=== PATIENT | male | born 1950 | race Hispanic/Latino ===

== ENCOUNTER → 2017-09-10 | Outpatient (CLI) | payer MEDICARE | END | disposition home or self-care (01) | LOC: RAH 09:06 | PROVIDERS: ATTEND Internal Medicine Gastroenterology | DX: K76.0 Fatty (change of) liver, not elsewhere classified (principal); K82.4 Cholesterolosis of gallbladder | CPT/HCPCS: 76700 ==

== ENCOUNTER 2017-10-14 00:31 | Emergency (ER) | payer MEDICARE ==
[2017-10-14] MEDS ORDERED: SODIUM CHLORIDE 0.9% 1000ML 1,000 ML IV ONE (01:12)
[2017-10-14] MEDS ORDERED: HYDRALAZINE HCL 20 MG/ML VIAL ONE (01:12)
[2017-10-14] MEDS ORDERED: ONDANSETRON HCL 4 MG/2 ML VIAL ONE (01:12)
[2017-10-14 01:22] LABS: CREATININE 1.1 mg/dL (0.5-1.5)
[2017-10-14 01:25] LABS: BASOPHILS % (AUTO) 0.5 % (0.0-5.0); EOSINOPHILS % (AUTO) 3.4 % (0.0-8.0); HEMATOCRIT 33.4 % (42-54); LYMPHOCYTES % (AUTO) 31.5 % (21.0-51.0); MEAN CORPUSCULAR HGB CONC 35.6 g/dL (32.0-36.0); MONOCYTES % (AUTO) 12.6 % (3.0-13.0); PLATELET COUNT (AUTO) 238 K/uL (130-400); RED BLOOD CELL COUNT(AUTO) 3.71 MIL/uL (4.50-6.20); RED CELL DISTRIBUTION WIDTH 13.5 % (11.0-15.5); WHITE BLOOD COUNT (AUTO) 8.9 K/uL (4.8-10.8)
[2017-10-14 01:27] LABS: ALBUMIN 3.6 g/dL (3.5-5.0); BILIRUBIN,TOTAL 0.5 mg/dL (0.2-1.0); TOTAL PROTEIN, SERUM 8.3 g/dL (6.0-8.3)
[2017-10-14 01:59] LABS: APPEARANCE,URINE Clear (CLEAR); BILIRUBIN,URINE Negative (NEGATIVE); COLOR,URINE Yellow (YELLOW); GLUCOSE, URINE (UA) Negative (NEGATIVE); KETONES,URINE Negative (NEGATIVE); LEUKOCYTE ESTERASE ,URINE Negative (NEGATIVE); NITRATE,URINE Negative (NEGATIVE); OCCULT BLOOD,URINE Trace (NEGATIVE); PH,URINE 5.5 (5.0-8.0); PROTEIN,URINE POS 2+ (NEGATIVE); UROBILINOGEN,URINE 0.2 mg/dL (0.2-1.0)
[2017-10-14 02:10] LABS: BACTERIA,URINE None Seen /HPF (None Seen); MUCUS,URINE Few LPF (None Seen); RBC,URINE None Seen /HPF (0-1); SQUAMOUS EPITHELIAL CELL,UR Few /HPF (0-2); WBC,URINE None Seen /HPF (0-1)
[2017-10-14 03:13] LABS: CREATININE 1.1 mg/dL (0.5-1.5); POTASSIUM 3.8 mmol/L (3.5-5.1)
[2017-10-14] MEDS ORDERED: ACETAMINOPHEN 325 MG TAB ONE (03:44)
== END 2017-10-14 04:06 | disposition home or self-care (01) ==
LOC: EDH 00:31
DX: E87.1 Hypo-osmolality and hyponatremia (principal); G47.00 Insomnia, unspecified; R20.2 Paresthesia of skin; I10 Essential (primary) hypertension; Z88.8 Allergy status to other drugs, medicaments and biological substances; Z86.19 Personal history of other infectious and parasitic diseases; Z87.01 Personal history of pneumonia (recurrent)
CPT/HCPCS: 36415; 80048; 80053; 81001; 82550; 84484; 85025; 93005; 96374; 96375; 99285; J0360; J2405; J7030

== ENCOUNTER 2019-07-19 22:32 | Emergency (ER) | payer MEDICARE ==
[2019-07-19 23:35] LABS: BASOPHILS % (AUTO) 0.2 % (0.0-5.0); EOSINOPHILS % (AUTO) 0.8 % (0.0-8.0); HEMATOCRIT 35.6 % (42-54); LYMPHOCYTES % (AUTO) 7.1 % (21.0-51.0); MEAN CORPUSCULAR HEMOGLOBIN 31.3 pg (27.0-33.0); MONOCYTES % (AUTO) 7.6 % (3.0-13.0); NEUTROPHILS % (AUTO) 82.8 % (40.0-77.0); PLATELET COUNT (AUTO) 232 K/uL (130-400); RED BLOOD CELL COUNT(AUTO) 3.87 MIL/uL (4.50-6.20); WHITE BLOOD COUNT (AUTO) 15.5 K/uL (4.8-10.8)
[2019-07-19 23:46] LABS: CREATININE 1.8 mg/dL (0.5-1.5); POTASSIUM 3.1 mmol/L (3.5-5.1)
[2019-07-19 23:51] LABS: ALBUMIN 3.9 g/dL (3.5-5.0); BILIRUBIN,TOTAL 0.4 mg/dL (0.2-1.0); TOTAL PROTEIN, SERUM 8.9 g/dL (6.0-8.3)
[2019-07-20] MEDS ORDERED: POTASSIUM CHLORIDE 20 MEQ ERTAB PO ONE (00:01)
[2019-07-20] MEDS ORDERED: METHYLPREDNISOLONE SOD SUCC 40MG/ML 1ML ONE (00:01)
[2019-07-20] MEDS ORDERED: CEFTRIAXONE SODIUM 1 GM ONE (00:02)
[2019-07-20] MEDS ORDERED: BENZONATATE 100 MG CAPSULE PO ONE (00:02)
[2019-07-20] MEDS ORDERED: AZITHROMYCIN 250 MG TABLET PO ONE (00:02)
[2019-07-20] MEDS ORDERED: SODIUM CHLORIDE 0.9% 500ML 500 ML IV ONE (00:03)
[2019-07-20] MEDS ORDERED: LORAZEPAM 1 MG TABLET ONE (00:03)
[2019-07-20 00:06] LABS: B-TYPE NATRIURETIC PEPTIDE 39 pg/mL (0-100)
[2019-07-20] MEDS ORDERED: NITROGLYCERIN 1GM/1 INCH PACKET TD ONE (02:04)
[2019-07-20] MEDS ORDERED: ACETAMINOPHEN 325 MG TAB ONE (02:32)
== END 2019-07-20 05:06 | disposition home or self-care (01) ==
LOC: EDH 22:32
DX: J44.0 Chronic obstructive pulmonary disease with (acute) lower respiratory infection (principal); R09.1 Pleurisy; I10 Essential (primary) hypertension; Z87.01 Personal history of pneumonia (recurrent); Z88.8 Allergy status to other drugs, medicaments and biological substances; Z86.19 Personal history of other infectious and parasitic diseases
CPT/HCPCS: 36415 ×2; 71045; 74176; 80053; 82550; 83605 ×2; 83735; 83880; 84145; 84484 ×2; 85025; 93005 ×2; 96374; 96375; 99285; J0696; J2920; J7040

== ENCOUNTER 2019-07-24 20:25 | Emergency (ER) | payer MEDICARE ==
[2019-07-24 20:53] LABS: BASOPHILS % (AUTO) 0.2 % (0.0-5.0); EOSINOPHILS % (AUTO) 3.6 % (0.0-8.0); HEMATOCRIT 37.1 % (42-54); LYMPHOCYTES % (AUTO) 40.6 % (21.0-51.0); MEAN CORPUSCULAR HGB CONC 33.7 g/dL (32.0-36.0); MEAN CORPUSCULAR VOLUME 92.1 fL (79-99); MONOCYTES % (AUTO) 9.3 % (3.0-13.0); NEUTROPHILS % (AUTO) 45.8 % (40.0-77.0); PLATELET COUNT (AUTO) 243 K/uL (130-400); RED BLOOD CELL COUNT(AUTO) 4.03 MIL/uL (4.50-6.20); RED CELL DISTRIBUTION WIDTH 12.7 % (11.0-15.5); WHITE BLOOD COUNT (AUTO) 8.3 K/uL (4.8-10.8)
[2019-07-24 21:09] LABS: CREATININE 1.7 mg/dL (0.5-1.5); POTASSIUM 3.7 mmol/L (3.5-5.1)
[2019-07-24] MEDS ORDERED: KETOROLAC TROMETHAMINE 30MG/ML ONE (21:09)
[2019-07-24] MEDS ORDERED: ONDANSETRON HCL 4 MG/2 ML VIAL ONE (21:09)
[2019-07-24 21:15] LABS: ALBUMIN 3.4 g/dL (3.5-5.0); BILIRUBIN,DIRECT 0.1 mg/dL (0.0-0.3); BILIRUBIN,TOTAL 0.3 mg/dL (0.2-1.0); TOTAL PROTEIN, SERUM 7.8 g/dL (6.0-8.3)
[2019-07-24] MEDS ORDERED: LORAZEPAM 0.5 MG TABLET ONE (23:00)
== END 2019-07-24 23:57 | disposition home or self-care (01) ==
LOC: EDH 20:25
DX: R10.9 Unspecified abdominal pain (principal); Z76.0 Encounter for issue of repeat prescription; I10 Essential (primary) hypertension; Z88.8 Allergy status to other drugs, medicaments and biological substances
CPT/HCPCS: 36415; 74176; 80048; 80076; 82550; 83690; 84484; 85025; 93005; 96374; 96375; 99285; J1885; J2405

== ENCOUNTER 2019-07-27 09:33 | Emergency (ER) | payer MEDICARE | END 2019-07-27 09:55 | disposition left against medical advice (07) | LOC: EDH 09:33 | DX: J18.9 Pneumonia, unspecified organism (principal); I10 Essential (primary) hypertension; Z88.8 Allergy status to other drugs, medicaments and biological substances; Z72.0 Tobacco use; Z53.21 Procedure and treatment not carried out due to patient leaving prior to being seen by health care provider ==

== ENCOUNTER 2020-07-18 11:36 | Observation (INO) | payer MEDICARE ==
[~2020-07-18] VITALS: Ht 170.2 cm; Wt 71.1 kg
[2020-07-18] MEDS ORDERED: LIDOCAINE HCL-MPF 1% 2ML VIAL IV PRN ×2 (13:00)
[2020-07-18] MEDS ORDERED: GLUCAGON 1MG KIT 1 MG ML IM PRN (13:00)
[2020-07-18] MEDS ORDERED: POTASSIUM CHLORIDE 10% ELIXIR 20 MEQ/15 ML UDCUP PO PRN (13:00)
[2020-07-18] MEDS ORDERED: MAGNESIUM 2GM PREMIX 50ML 50 ML IV PRN (13:00)
[2020-07-18] MEDS ORDERED: LORAZEPAM 2 MG/ML 1 ML VIAL IVP PRN (13:00)
[2020-07-18] MEDS: PANTOPRAZOLE 40 MG/VIAL IVP SCH (13:00)
[2020-07-18] MEDS ORDERED: DEXTROSE 50%-WATER 50 ML DISP.SYRIN IV PRN (13:00)
[2020-07-18] MEDS ORDERED: POTASSIUM CHLORIDE 20MEQ/100ML 100 ML IV PRN ×2 (13:00)
[2020-07-18] MEDS ORDERED: POTASSIUM CHLORIDE 20 MEQ ERTAB PO PRN (13:00)
[2020-07-18] MEDS: SODIUM CHLORIDE 0.9% 1000ML 1,000 ML IV SCH ×2 (13:00→23:00)
[2020-07-18] MEDS ORDERED: ONDANSETRON HCL 4 MG/2 ML VIAL IVP PRN (13:00)
[2020-07-18 13:12] LABS: APPEARANCE,URINE Clear (CLEAR); BILIRUBIN,URINE Negative (NEGATIVE); COLOR,URINE Yellow (YELLOW); GLUCOSE, URINE (UA) Negative (NEGATIVE); KETONES,URINE Negative (NEGATIVE); LEUKOCYTE ESTERASE ,URINE Negative (NEGATIVE); NITRATE,URINE Negative (NEGATIVE); OCCULT BLOOD,URINE Negative (NEGATIVE); PROTEIN,URINE Negative (NEGATIVE); UROBILINOGEN,URINE 0.2 mg/dL (0.2-1.0)
[2020-07-18] MEDS ORDERED: LABETALOL 20 MG/4 ML DISP.SYRIN IV PRN (13:15)
[2020-07-18 13:22] LABS: AMPHET/METH SCREEN,URINE NEGATIVE (NEGATIVE); BARBITURATE SCREEN, URINE NEGATIVE (NEGATIVE); BENZODIAZEPINES SCREEN,URINE NEGATIVE (NEGATIVE); CANNABINOID SCREEN,URINE NEGATIVE (NEGATIVE); COCAINE SCREEN,URINE NEGATIVE (NEGATIVE); OPIATE SCREEN,URINE NEGATIVE (NEGATIVE); PHENCYCLIDINE SCREEN,URINE NEGATIVE (NEGATIVE)
[2020-07-18 13:31] LABS: HEMATOCRIT 34.3 % (42-54); MEAN CORPUSCULAR HEMOGLOBIN 31.7 pg (27.0-33.0); MEAN CORPUSCULAR VOLUME 90.5 fL (79-99); RED BLOOD CELL COUNT(AUTO) 3.79 MIL/uL (4.50-6.20); RED CELL DISTRIBUTION WIDTH 12.5 % (11.0-15.5); WHITE BLOOD COUNT (AUTO) 6.7 K/uL (4.8-10.8)
[2020-07-18 13:44] LABS: CREATININE 1.7 mg/dL (0.5-1.5); POTASSIUM 4.4 mmol/L (3.5-5.1)
[2020-07-18] MEDS ORDERED: PANTOPRAZOLE 40 MG/VIAL ONE (14:04)
[2020-07-18] MEDS ORDERED: SODIUM CHLORIDE 0.9% 1000ML 1,000 ML IV ONE (14:06)
[2020-07-18] MEDS ORDERED: LORAZEPAM 2 MG/ML 1 ML VIAL ONE ×2 (15:20→23:12)
[2020-07-18] MEDS ORDERED: ONDANSETRON HCL 4 MG/2 ML VIAL ONE (22:43)
[2020-07-18 23:50] VITALS: BP 172/87
[2020-07-19] MEDS ORDERED: LORA2TAB80 PO (00:29)
[2020-07-19] MEDS ORDERED: AMLO-258 PO (00:29)
[2020-07-19] MEDS ORDERED: CLON1PAT13 TD (00:29)
[2020-07-19] MEDS ORDERED: LISI40TA9 PO (00:29)
[2020-07-19] MEDS ORDERED: FOLI1TAB85 PO (00:29)
[2020-07-19] MEDS ORDERED: ZOLP10TA2 PO (00:29)
[2020-07-19] MEDS ORDERED: ZOLPIDEM TARTRATE 5 MG TAB PO PRN (00:45)
[2020-07-19] MEDS ORDERED: LORAZEPAM 2 MG TABLET PO PRN (00:45)
[2020-07-19] MEDS ORDERED: ZOLPIDEM TARTRATE 5 MG TAB ONE (00:53)
[2020-07-19] MEDS: LORAZEPAM 1 MG TABLET ONE ×2 (00:56→00:58)
[2020-07-19 04:00] VITALS: BP 125/66
[2020-07-19 04:59] LABS: CREATININE 1.7 mg/dL (0.5-1.5); POTASSIUM 4.6 mmol/L (3.5-5.1)
[2020-07-19 07:00] VITALS: BP 154/73
[2020-07-19] MEDS ORDERED: LISINOPRIL 40 MG TABLET PO SCH (09:00)
[2020-07-19] MEDS ORDERED: AMLODIPINE-BENAZEPRIL 5-10 MG PO SCH (09:00)
[2020-07-19] MEDS ORDERED: CLONIDINE 0.3 MG/ 24 HR PATCH TD SCH (09:00)
[2020-07-19] MEDS: PANTOPRAZOLE 40 MG/VIAL IVP SCH (09:58)
== END 2020-07-19 10:49 | disposition home or self-care (01) ==
LOC: EDH 11:36 → EDHIP 12:54 → 3DH 22:53
PROVIDERS: ADMIT Internal Medicine; ATTEND Internal Medicine
DX: R53.1 Weakness (principal); Z20.822 Contact with and (suspected) exposure to COVID-19; R11.2 Nausea with vomiting, unspecified; F41.9 Anxiety disorder, unspecified; I10 Essential (primary) hypertension; G89.29 Other chronic pain; M54.9 Dorsalgia, unspecified; G47.00 Insomnia, unspecified; J44.9 Chronic obstructive pulmonary disease, unspecified; F13.20 Sedative, hypnotic or anxiolytic dependence, uncomplicated; Z87.891 Personal history of nicotine dependence; Z79.899 Other long term (current) drug therapy; Z88.8 Allergy status to other drugs, medicaments and biological substances
CPT/HCPCS: 36415 ×2; 71045; 80048 ×2; 80305; 81003; 83735; 84145; 85027; 86677; 87040 ×2; 87426; 96374; 99284; C9113 ×2; G0378 ×22; J2060 ×2; J2405; J7030; U0003

== ENCOUNTER 2020-10-12 09:08 | Observation (INO) | payer MEDICARE ==
[~2020-10-12] VITALS: Ht 170.2 cm; Wt 68.0 kg
[~2020-10-12 09:08] MED LIST: AMLO-258 PO; CLON1PAT13 TD; FOLI1TAB85 PO; LISI40TA9 PO; LORA2TAB80 PO; ZOLP10TA2 PO
[2020-10-12] MEDS ORDERED: ONDANSETRON 4MG INJ IVP ONE ×2 (09:30)
[2020-10-12] MEDS ORDERED: FAMOTIDINE 20MG VIAL IV ONE ×2 (09:30→10:42)
[2020-10-12 09:35] VITALS: BP 150/76
[2020-10-12 09:45] LABS: BASOPHILS % (AUTO) 0.3 % (0.0-5.0); EOSINOPHILS % (AUTO) 1.1 % (0.0-8.0); HEMATOCRIT 36.2 % (42-54); LYMPHOCYTES % (AUTO) 11.9 % (21.0-51.0); MEAN CORPUSCULAR HEMOGLOBIN 31.1 pg (27.0-33.0); MEAN CORPUSCULAR VOLUME 91.4 fL (79-99); MONOCYTES % (AUTO) 6.6 % (3.0-13.0); NEUTROPHILS % (AUTO) 79.7 % (40.0-77.0); PLATELET COUNT (AUTO) 196 K/uL (130-400); RED BLOOD CELL COUNT(AUTO) 3.96 MIL/uL (4.50-6.20); RED CELL DISTRIBUTION WIDTH 13.5 % (11.0-15.5); WHITE BLOOD COUNT (AUTO) 14.6 K/uL (4.8-10.8)
[2020-10-12 09:52] LABS: CREATININE 2.1 mg/dL (0.5-1.5); POTASSIUM 4.3 mmol/L (3.5-5.1)
[2020-10-12 10:11] LABS: B-TYPE NATRIURETIC PEPTIDE 29 pg/mL (0-100)
[2020-10-12 10:12] LABS: ALBUMIN 3.4 g/dL (3.5-5.0); BILIRUBIN,TOTAL 0.4 mg/dL (0.2-1.0); TROPONIN I 0.1 ng/mL (0.00-0.06)
[2020-10-12] MEDS ORDERED: ONDANSETRON 4MG INJ ONE (10:42)
[2020-10-12] MEDS ORDERED: LORAZEPAM 2 MG/ML 1 ML VIAL IVP ONE (12:00)
[2020-10-12] MEDS ORDERED: LORAZEPAM 2 MG/ML 1 ML VIAL ONE (12:07)
[2020-10-12] MEDS ORDERED: NITROGLYCERIN 0.4 MG SL TAB SL PRN (12:30)
[2020-10-12] MEDS ORDERED: ONDANSETRON 4MG INJ IV PRN (12:30)
[2020-10-12] MEDS ORDERED: HYDRALAZINE 20MG/ML VIAL IV PRN (12:30)
[2020-10-12] MEDS ORDERED: ACETAMINOPHEN 325 MG TAB PO PRN (12:30)
[2020-10-12 13:06] LABS: BASOPHILS % (AUTO) 0.3 % (0.0-5.0); EOSINOPHILS % (AUTO) 0.6 % (0.0-8.0); HEMATOCRIT 36.3 % (42-54); LYMPHOCYTES % (AUTO) 14.5 % (21.0-51.0); MEAN CORPUSCULAR HEMOGLOBIN 30.5 pg (27.0-33.0); MEAN CORPUSCULAR HGB CONC 33.6 g/dL (32.0-36.0); MEAN CORPUSCULAR VOLUME 90.8 fL (79-99); MONOCYTES % (AUTO) 7.4 % (3.0-13.0); NEUTROPHILS % (AUTO) 76.6 % (40.0-77.0); PLATELET COUNT (AUTO) 190 K/uL (130-400); RED CELL DISTRIBUTION WIDTH 13.3 % (11.0-15.5); WHITE BLOOD COUNT (AUTO) 12.5 K/uL (4.8-10.8)
[2020-10-12] MEDS ORDERED: PANTOPRAZOLE 40 MG/VIAL ONE (13:11)
[2020-10-12] MEDS ORDERED: 0.9%NACL 100ML 200 ML ONE (13:12)
[2020-10-12] MEDS: 0.9%NACL 1000ML 1,000 ML IV SCH (13:24)
[2020-10-12] MEDS: CEFTRIAXONE 1G VIAL IV SCH (13:24)
[2020-10-12] MEDS ORDERED: OCTREOTIDE ACETATE 1,250 MCG in 0.9% NACL 250ML 250 ML IV SCH (18:15)
[2020-10-12 18:50] VITALS: BP 141/75
[2020-10-12] MEDS ORDERED: VENL-191 PO (20:19)
[2020-10-12 20:39] LABS: BASOPHILS % (AUTO) 0.2 % (0.0-5.0); EOSINOPHILS % (AUTO) 1.1 % (0.0-8.0); HEMATOCRIT 32.2 % (42-54); LYMPHOCYTES % (AUTO) 22.1 % (21.0-51.0); MEAN CORPUSCULAR HEMOGLOBIN 30.6 pg (27.0-33.0); MEAN CORPUSCULAR HGB CONC 33.2 g/dL (32.0-36.0); MONOCYTES % (AUTO) 10.2 % (3.0-13.0); PLATELET COUNT (AUTO) 165 K/uL (130-400); RED CELL DISTRIBUTION WIDTH 13.4 % (11.0-15.5); WHITE BLOOD COUNT (AUTO) 12.2 K/uL (4.8-10.8)
[2020-10-12 20:48] VITALS: BP 148/71
[2020-10-12] MEDS: PANTOPRAZOLE 40 MG/VIAL IVP SCH (21:24)
[2020-10-12] MEDS: LORAZEPAM 2 MG/ML 1 ML VIAL IVP PRN (21:25)
[2020-10-13] VITALS (8 sets, daily range): BP systolic 127–163; BP diastolic 52–90
[2020-10-13] MEDS: 0.9%NACL 1000ML 1,000 ML IV SCH ×3 (01:42→20:39)
[2020-10-13] MEDS: LORAZEPAM 2 MG/ML 1 ML VIAL IVP PRN ×4 (03:12→22:43)
[2020-10-13 03:37] LABS: BASOPHILS % (AUTO) 0.3 % (0.0-5.0); EOSINOPHILS % (AUTO) 2.2 % (0.0-8.0); HEMATOCRIT 30.9 % (42-54); LYMPHOCYTES % (AUTO) 22.2 % (21.0-51.0); MEAN CORPUSCULAR HEMOGLOBIN 30.5 pg (27.0-33.0); MEAN CORPUSCULAR HGB CONC 33.3 g/dL (32.0-36.0); MEAN CORPUSCULAR VOLUME 91.4 fL (79-99); MONOCYTES % (AUTO) 8.3 % (3.0-13.0); NEUTROPHILS % (AUTO) 66.5 % (40.0-77.0); PLATELET COUNT (AUTO) 140 K/uL (130-400); RED BLOOD CELL COUNT(AUTO) 3.38 MIL/uL (4.50-6.20); RED CELL DISTRIBUTION WIDTH 13.5 % (11.0-15.5); WHITE BLOOD COUNT (AUTO) 9.8 K/uL (4.8-10.8)
[2020-10-13 03:46] LABS: CREATININE 1.7 mg/dL (0.5-1.5)
[2020-10-13] MEDS ORDERED: POTASSIUM CHLORIDE 20MEQ/100ML 100 ML IV PRN (08:00)
[2020-10-13] MEDS ORDERED: KCL 20 MEQ ERTAB PO PRN (08:00)
[2020-10-13] MEDS ORDERED: POTASSIUM CHLORIDE 10% ELIXIR 20 MEQ/15 ML UDCUP PO PRN (08:00)
[2020-10-13] MEDS ORDERED: LIDOCAINE HCL-MPF 1% 2ML VIAL IJ PRN (08:00)
[2020-10-13] MEDS: PANTOPRAZOLE 40 MG/VIAL IVP SCH ×2 (08:19→20:39)
[2020-10-13] MEDS ORDERED: PANTOPRAZOLE 40MG INJ 80 MG in 0.9%NACL 100ML 100 ML IV SCH (09:00)
[2020-10-13] MEDS: THIAMINE HCL 100 MG/ML 2ML VIAL IV SCH (09:51)
[2020-10-13 10:00] LABS: BASOPHILS % (AUTO) 0.2 % (0.0-5.0); HEMATOCRIT 37.2 % (42-54); LYMPHOCYTES % (AUTO) 27.5 % (21.0-51.0); MEAN CORPUSCULAR HEMOGLOBIN 30.4 pg (27.0-33.0); MEAN CORPUSCULAR HGB CONC 33.1 g/dL (32.0-36.0); MEAN CORPUSCULAR VOLUME 92.1 fL (79-99); NEUTROPHILS % (AUTO) 61.1 % (40.0-77.0); PLATELET COUNT (AUTO) 171 K/uL (130-400); RED BLOOD CELL COUNT(AUTO) 4.04 MIL/uL (4.50-6.20); RED CELL DISTRIBUTION WIDTH 13.2 % (11.0-15.5); WHITE BLOOD COUNT (AUTO) 8.7 K/uL (4.8-10.8)
[2020-10-13 10:26] LABS: INR 1.01 (0.85-1.15)
[2020-10-13 10:28] LABS: PARTIAL THROMBOPLASTIN TIME 27.5 SEC (26.3-35.5)
[2020-10-13] MEDS: CEFTRIAXONE 1G VIAL IV SCH (15:15)
[2020-10-13] MEDS ORDERED: VENL75TA89 PO (16:46)
[2020-10-13] MEDS ORDERED: AMLO-258 PO (16:46)
[2020-10-13] MEDS ORDERED: VITA100C26 PO (16:46)
[2020-10-13] MEDS ORDERED: ZINC220T4 PO (16:46)
[2020-10-13] MEDS ORDERED: ASCO500W7 PO (16:46)
[2020-10-13] MEDS ORDERED: LISI40TA9 PO (16:46)
[2020-10-13 20:45] LABS: BASOPHILS % (AUTO) 0.4 % (0.0-5.0); EOSINOPHILS % (AUTO) 5.2 % (0.0-8.0); HEMATOCRIT 29.8 % (42-54); LYMPHOCYTES % (AUTO) 24.5 % (21.0-51.0); MEAN CORPUSCULAR HEMOGLOBIN 30.7 pg (27.0-33.0); MEAN CORPUSCULAR HGB CONC 33.2 g/dL (32.0-36.0); MEAN CORPUSCULAR VOLUME 92.5 fL (79-99); MONOCYTES % (AUTO) 11.2 % (3.0-13.0); NEUTROPHILS % (AUTO) 58.3 % (40.0-77.0); PLATELET COUNT (AUTO) 136 K/uL (130-400); RED BLOOD CELL COUNT(AUTO) 3.22 MIL/uL (4.50-6.20); RED CELL DISTRIBUTION WIDTH 13.2 % (11.0-15.5); WHITE BLOOD COUNT (AUTO) 7.7 K/uL (4.8-10.8)
[2020-10-14] MEDS ORDERED: DiphenhydrAMINE HCL 25 MG/10 ML ELIXIR UDCUP PO SCH (01:30)
[2020-10-14] MEDS ORDERED: ZOLP5TAB8 PO (02:04)
[2020-10-14] MEDS ORDERED: LORA2TAB80 PO (02:04)
[2020-10-14] MEDS: LORAZEPAM 2 MG/ML 1 ML VIAL IVP PRN ×3 (02:20→12:00)
[2020-10-14 03:57] VITALS: BP 167/83
[2020-10-14 05:31] LABS: BASOPHILS % (AUTO) 0.4 % (0.0-5.0); EOSINOPHILS % (AUTO) 6.2 % (0.0-8.0); HEMATOCRIT 30.7 % (42-54); LYMPHOCYTES % (AUTO) 25.9 % (21.0-51.0); MEAN CORPUSCULAR HEMOGLOBIN 30.7 pg (27.0-33.0); MEAN CORPUSCULAR HGB CONC 33.2 g/dL (32.0-36.0); MEAN CORPUSCULAR VOLUME 92.5 fL (79-99); MONOCYTES % (AUTO) 9.5 % (3.0-13.0); NEUTROPHILS % (AUTO) 57.6 % (40.0-77.0); PLATELET COUNT (AUTO) 151 K/uL (130-400); RED BLOOD CELL COUNT(AUTO) 3.32 MIL/uL (4.50-6.20); RED CELL DISTRIBUTION WIDTH 13.2 % (11.0-15.5); WHITE BLOOD COUNT (AUTO) 7.3 K/uL (4.8-10.8)
[2020-10-14 05:45] LABS: INR 1.01 (0.85-1.15)
[2020-10-14 05:46] LABS: PARTIAL THROMBOPLASTIN TIME 23.7 SEC (26.3-35.5)
[2020-10-14 05:50] LABS: ALBUMIN 3.1 g/dL (3.5-5.0); BILIRUBIN,TOTAL 0.2 mg/dL (0.2-1.0); CREATININE 1.4 mg/dL (0.5-1.5); MAGNESIUM 1.9 mg/dL (1.80-2.40); POTASSIUM 4.2 mmol/L (3.5-5.1); TOTAL PROTEIN, SERUM 7.8 g/dL (6.0-8.3)
[2020-10-14 07:30] VITALS: BP 200/98
[2020-10-14] MEDS: PANTOPRAZOLE 40 MG/VIAL IVP SCH (07:55)
[2020-10-14] MEDS: THIAMINE HCL 100 MG/ML 2ML VIAL IV SCH (07:55)
[2020-10-14 11:00] VITALS: BP 150/79
[2020-10-14] MEDS: CEFTRIAXONE 1G VIAL IV SCH (11:59)
[2020-10-14] MEDS ORDERED: LORAZEPAM 1 MG TABLET PO PRN (15:15)
[2020-10-14] MEDS ORDERED: ZOLPIDEM TARTRATE 5 MG TAB PO PRN (15:15)
[2020-10-14] MEDS ORDERED: LISINOPRIL 40 MG TABLET PO SCH (21:00)
[2020-10-15] MEDS ORDERED: **HM**(Zinc Sulfate (Zinc) 50 MG PO SCH (09:00)
[2020-10-15] MEDS ORDERED: VITAMIN E 45 MG PO SCH (09:00)
[2020-10-15] MEDS ORDERED: VENLAFAXINE HCL 75 MG TAB PO SCH (09:00)
[2020-10-15] MEDS ORDERED: ASCORBIC ACID 500 MG TAB PO SCH (09:00)
[2020-10-15] MEDS ORDERED: AMLODIPINE 5 MG TAB PO SCH (09:00)
== END 2020-10-14 17:00 | disposition home or self-care (01) ==
LOC: EDH 09:08 → UNDOADMOB 12:20 → EDHIP 12:20 → UNDOADMOB 12:21 → EDHIP 12:21 → 3CH 10-13 07:23 → EDHIP 10-13 07:23
PROVIDERS: ADMIT Internal Medicine; ATTEND Internal Medicine
DX: K92.2 Gastrointestinal hemorrhage, unspecified (principal); R53.83 Other fatigue; R11.2 Nausea with vomiting, unspecified; R14.0 Abdominal distension (gaseous); R42 Dizziness and giddiness; F41.9 Anxiety disorder, unspecified; F13.20 Sedative, hypnotic or anxiolytic dependence, uncomplicated; B19.20 Unspecified viral hepatitis C without hepatic coma; D64.9 Anemia, unspecified; N17.9 Acute kidney failure, unspecified; K92.0 Hematemesis; E87.1 Hypo-osmolality and hyponatremia; D62 Acute posthemorrhagic anemia; G89.29 Other chronic pain; M54.9 Dorsalgia, unspecified; I10 Essential (primary) hypertension; G47.00 Insomnia, unspecified; E11.9 Type 2 diabetes mellitus without complications; K21.00 Gastro-esophageal reflux disease with esophagitis, without bleeding; Z79.899 Other long term (current) drug therapy; D72.829 Elevated white blood cell count, unspecified; Z80.3 Family history of malignant neoplasm of breast; Z82.49 Family history of ischemic heart disease and other diseases of the circulatory system; Z87.891 Personal history of nicotine dependence
CPT/HCPCS: 36415 ×3; 71045 ×2; 80048; 80053 ×2; 82270; 82550; 83605; 83735; 83874; 83880; 84484 ×5; 85025 ×7; 85610 ×2; 85730 ×3; 86850; 86900; 86901; 87040 ×2; 93005; 96361 ×2; 96365; 96366 ×2; 96367; 96368; 96375 ×3; 96376 ×3; 99285; C1894; C9113 ×5; G0378 ×53; J0360; J0696 ×3; J2060 ×10; J2354; J2405; J3411 ×2; J3490; J7030; J7050

== ENCOUNTER 2020-12-27 14:33 | Emergency (ER) | payer MEDICARE ==
[~2020-12-27] VITALS: Ht 167.6 cm; Wt 68.0 kg
[~2020-12-27 14:33] MED LIST changes: +ASCO500W7 PO; -CLON1PAT13 TD; -FOLI1TAB85 PO; +VENL75TA89 PO; +VITA100C26 PO; +ZINC220T4 PO; -ZOLP10TA2 PO; +ZOLP5TAB8 PO
[2020-12-27 14:49] VITALS: BP 170/108
[2020-12-27] MEDS ORDERED: LORAZEPAM 2 MG/ML 1 ML VIAL ONE (15:24)
[2020-12-27 15:43] VITALS: BP 156/86
== END 2020-12-27 15:44 | disposition home or self-care (01) ==
LOC: EDH 14:33
DX: F41.9 Anxiety disorder, unspecified (principal); I10 Essential (primary) hypertension; Z79.899 Other long term (current) drug therapy; Z86.19 Personal history of other infectious and parasitic diseases
CPT/HCPCS: 96372; 99283; J2060

== ENCOUNTER 2021-03-17 19:35 | Inpatient (IN) | payer MEDICARE ==
[~2021-03-17] VITALS: Ht 170.2 cm; Wt 75.1 kg
[2021-03-17] MEDS: DOXYCYCLINE 100MG+NS 250ML 250 ML IV SCH (00:25)
[2021-03-17] MEDS ORDERED: IPRATROPIUM/ALBUTEROL SULFATE 3 ML SOLUTION IH ONE (20:30)
[2021-03-17] MEDS ORDERED: LACTATED RINGERS 1000ML 1,000 ML IV ONE (20:30)
[2021-03-17] MEDS ORDERED: ACETAMINOPHEN 500 MG TABLET PO ONE (20:30)
[2021-03-17 20:52] LABS: BASOPHILS % (AUTO) 0.2 % (0.0-5.0); EOSINOPHILS % (AUTO) 0.8 % (0.0-8.0); HEMATOCRIT 28.4 % (42-54); MEAN CORPUSCULAR HEMOGLOBIN 29.3 pg (27.0-33.0); MEAN CORPUSCULAR HGB CONC 32.4 g/dL (32.0-36.0); MEAN CORPUSCULAR VOLUME 90.4 fL (79-99); MONOCYTES % (AUTO) 11.3 % (3.0-13.0); NEUTROPHILS % (AUTO) 73.9 % (40.0-77.0); PLATELET COUNT (AUTO) 148 K/uL (130-400); RED BLOOD CELL COUNT(AUTO) 3.14 MIL/uL (4.50-6.20); RED CELL DISTRIBUTION WIDTH 15.5 % (11.0-15.5); WHITE BLOOD COUNT (AUTO) 12.9 K/uL (4.8-10.8)
[2021-03-17 21:08] LABS: CREATININE 2.5 mg/dL (0.5-1.5)
[2021-03-17 21:12] LABS: ALBUMIN 3.2 g/dL (3.5-5.0); BILIRUBIN,TOTAL 0.4 mg/dL (0.2-1.0); TOTAL PROTEIN, SERUM 8.1 g/dL (6.0-8.3)
[2021-03-17 21:15] LABS: B-TYPE NATRIURETIC PEPTIDE 6 pg/mL (0-100)
[2021-03-17] MEDS ORDERED: CEFTRIAXONE 1G VIAL ONE (21:23)
[2021-03-17] MEDS ORDERED: LORAZEPAM 2 MG/ML 1 ML VIAL ONE (21:24)
[2021-03-17] MEDS ORDERED: LORAZEPAM 2 MG/ML 1 ML VIAL IVP ONE (21:30)
[2021-03-17] MEDS: CEFTRIAXONE 1G VIAL IV SCH (21:30)
[2021-03-17] MEDS ORDERED: CEFTRIAXONE 1G VIAL IVP ONE (21:30)
[2021-03-17] MEDS ORDERED: GUAIFENESIN-DM 200/20 MG 10 ML PO PRN (21:30)
[2021-03-17] MEDS ORDERED: ONDANSETRON 4MG INJ IV PRN (21:30)
[2021-03-17] MEDS: LACTATED RINGERS 1000ML 1,000 ML IV SCH (21:30)
[2021-03-17] MEDS ORDERED: ACETAMINOPHEN 325 MG TAB PO PRN (21:30)
[2021-03-17] MEDS: IPRATROPIUM/ALBUTEROL SULFATE 3 ML SOLUTION IH SCH (23:40)
[2021-03-18] MEDS: DOXYCYCLINE 100MG+NS 250ML 250 ML IV SCH ×3 (00:25→20:35)
[2021-03-18 00:26] LABS: APPEARANCE,URINE Clear (CLEAR); BILIRUBIN,URINE Negative (NEGATIVE); COLOR,URINE Yellow (YELLOW); GLUCOSE, URINE (UA) Negative (NEGATIVE); KETONES,URINE Negative (NEGATIVE); LEUKOCYTE ESTERASE ,URINE Negative (NEGATIVE); NITRATE,URINE Negative (NEGATIVE); OCCULT BLOOD,URINE Negative (NEGATIVE); PROTEIN,URINE Negative (NEGATIVE)
[2021-03-18 01:10] VITALS: BP 147/81
[2021-03-18 04:02] VITALS: BP 137/66
[2021-03-18] MEDS ORDERED: CARI350T26 PO (04:05)
[2021-03-18] MEDS ORDERED: HYDR-4068 PO (04:06)
[2021-03-18] MEDS ORDERED: LISI40TA9 PO (04:09)
[2021-03-18] MEDS ORDERED: LORA2TAB80 PO (04:09)
[2021-03-18] MEDS ORDERED: OMEP20CA12 PO (04:10)
[2021-03-18] MEDS ORDERED: AMLO-258 PO (04:12)
[2021-03-18 04:47] LABS: BASOPHILS % (AUTO) 0.2 % (0.0-5.0); EOSINOPHILS % (AUTO) 2.7 % (0.0-8.0); HEMATOCRIT 27.6 % (42-54); LYMPHOCYTES % (AUTO) 21.2 % (21.0-51.0); MEAN CORPUSCULAR HEMOGLOBIN 29.9 pg (27.0-33.0); MEAN CORPUSCULAR HGB CONC 32.6 g/dL (32.0-36.0); MEAN CORPUSCULAR VOLUME 91.7 fL (79-99); MONOCYTES % (AUTO) 10.5 % (3.0-13.0); NEUTROPHILS % (AUTO) 64.8 % (40.0-77.0); PLATELET COUNT (AUTO) 129 K/uL (130-400); RED BLOOD CELL COUNT(AUTO) 3.01 MIL/uL (4.50-6.20); RED CELL DISTRIBUTION WIDTH 15.4 % (11.0-15.5)
[2021-03-18] MEDS: LACTATED RINGERS 1000ML 1,000 ML IV SCH ×2 (04:56→17:07)
[2021-03-18 05:04] LABS: CREATININE 2.1 mg/dL (0.5-1.5); MAGNESIUM 1.7 mg/dL (1.80-2.40); PHOSPHORUS 4.1 mg/dL (2.5-4.9); POTASSIUM 4.1 mmol/L (3.5-5.1)
[2021-03-18] MEDS: IPRATROPIUM/ALBUTEROL SULFATE 3 ML SOLUTION IH SCH ×4 (07:01→23:03)
[2021-03-18 08:00] VITALS: BP 141/65
[2021-03-18] MEDS: FAMOTIDINE 20MG VIAL IV SCH (09:06)
[2021-03-18] MEDS: HEPARIN 5,000 UNIT VIAL SQ SCH ×3 (09:14→22:07)
[2021-03-18 12:00] VITALS: BP 118/61
[2021-03-18] MEDS ORDERED: CARISOPRODOL 350 MG TABLET PO PRN (14:00)
[2021-03-18] MEDS: LORAZEPAM 2 MG TABLET PO PRN ×2 (14:10→20:36)
[2021-03-18 14:34] LABS: APPEARANCE,URINE Clear (CLEAR); BILIRUBIN,URINE Negative (NEGATIVE); COLOR,URINE Yellow (YELLOW); GLUCOSE, URINE (UA) Negative (NEGATIVE); KETONES,URINE Negative (NEGATIVE); LEUKOCYTE ESTERASE ,URINE Negative (NEGATIVE); NITRATE,URINE Negative (NEGATIVE); OCCULT BLOOD,URINE Negative (NEGATIVE); PH,URINE 5.5 (5.0-8.0); PROTEIN,URINE Negative (NEGATIVE); UROBILINOGEN,URINE 0.2 mg/dL (0.2-1.0)
[2021-03-18 14:58] LABS: BACTERIA,URINE Rare /HPF (None Seen); RBC,URINE 0-1 /HPF (0-1); SQUAMOUS EPITHELIAL CELL,UR None Seen /HPF (0-2); WBC,URINE 0-1 /HPF (0-1)
[2021-03-18] MEDS: HYDROCODONE/ACETAMINOPHEN 10/325 MG TAB PO PRN ×2 (15:00→22:03)
[2021-03-18 16:00] VITALS: BP 135/68
[2021-03-18] MEDS: PANTOPRAZOLE 40 MG TAB DR PO SCH (20:34)
[2021-03-18] MEDS: LISINOPRIL 40 MG TABLET PO SCH (20:35)
[2021-03-18] MEDS: CEFTRIAXONE 1G VIAL IV SCH (20:36)
[2021-03-18 21:07] VITALS: BP 124/58
[2021-03-19] VITALS (7 sets, daily range): BP systolic 118–156; BP diastolic 48–79
[2021-03-19] MEDS: LACTATED RINGERS 1000ML 1,000 ML IV SCH ×2 (03:30→10:36)
[2021-03-19] MEDS: HYDROCODONE/ACETAMINOPHEN 10/325 MG TAB PO PRN ×3 (04:38→17:31)
[2021-03-19] MEDS: LORAZEPAM 2 MG TABLET PO PRN ×3 (04:39→20:58)
[2021-03-19 04:53] LABS: BASOPHILS % (AUTO) 0.2 % (0.0-5.0); EOSINOPHILS % (AUTO) 10.2 % (0.0-8.0); HEMATOCRIT 27.2 % (42-54); MEAN CORPUSCULAR HEMOGLOBIN 29.7 pg (27.0-33.0); MEAN CORPUSCULAR HGB CONC 32.7 g/dL (32.0-36.0); MEAN CORPUSCULAR VOLUME 90.7 fL (79-99); NEUTROPHILS % (AUTO) 57.1 % (40.0-77.0); PLATELET COUNT (AUTO) 143 K/uL (130-400); WHITE BLOOD COUNT (AUTO) 4.3 K/uL (4.8-10.8)
[2021-03-19 05:07] LABS: ALBUMIN 2.8 g/dL (3.5-5.0); BILIRUBIN,TOTAL 0.2 mg/dL (0.2-1.0); CREATININE 1.6 mg/dL (0.5-1.5); MAGNESIUM 1.8 mg/dL (1.80-2.40); PHOSPHORUS 3.7 mg/dL (2.5-4.9); POTASSIUM 4.1 mmol/L (3.5-5.1); TOTAL PROTEIN, SERUM 7.5 g/dL (6.0-8.3); URIC ACID 7.6 mg/dL (2.6-7.2)
[2021-03-19 05:26] LABS: % IRON SATURATION 14.1 % (30-44)
[2021-03-19] MEDS: IPRATROPIUM/ALBUTEROL SULFATE 3 ML SOLUTION IH SCH ×4 (06:07→23:21)
[2021-03-19] MEDS: Vitamin B Complex/Vit C/Folic Acid PO SCH (10:35)
[2021-03-19] MEDS: FAMOTIDINE 20MG VIAL IV SCH (10:35)
[2021-03-19] MEDS: AMLODIPINE 5 MG TAB PO SCH (10:35)
[2021-03-19] MEDS: PANTOPRAZOLE 40 MG TAB DR PO SCH ×2 (10:35→20:53)
[2021-03-19] MEDS: LISINOPRIL 40 MG TABLET PO SCH ×2 (10:35→20:53)
[2021-03-19] MEDS: DOXYCYCLINE 100MG+NS 250ML 250 ML IV SCH ×2 (10:35→20:53)
[2021-03-19] MEDS: HEPARIN 5,000 UNIT VIAL SQ SCH ×3 (11:07→20:53)
[2021-03-19] MEDS: CEFTRIAXONE 1G VIAL IV SCH (20:54)
[2021-03-20] VITALS (8 sets, daily range): BP systolic 143–179; BP diastolic 61–88
[2021-03-20] MEDS: HYDROCODONE/ACETAMINOPHEN 10/325 MG TAB PO PRN ×4 (02:34→20:58)
[2021-03-20] MEDS: LORAZEPAM 2 MG TABLET PO PRN ×3 (03:16→20:49)
[2021-03-20 04:44] LABS: MEAN CORPUSCULAR HEMOGLOBIN 29.3 pg (27.0-33.0); MEAN CORPUSCULAR HGB CONC 32.8 g/dL (32.0-36.0); MEAN CORPUSCULAR VOLUME 89.5 fL (79-99); PLATELET COUNT (AUTO) 185 K/uL (130-400); RED BLOOD CELL COUNT(AUTO) 3.24 MIL/uL (4.50-6.20); RED CELL DISTRIBUTION WIDTH 14.8 % (11.0-15.5); WHITE BLOOD COUNT (AUTO) 4.6 K/uL (4.8-10.8)
[2021-03-20 05:04] LABS: CREATININE 1.7 mg/dL (0.5-1.5); POTASSIUM 4.3 mmol/L (3.5-5.1)
[2021-03-20 05:38] LABS: EOSINOPHILS % (MANUAL) 12 % (1-6); LYMPHOCYTES % (MANUAL) 24 % (22-44); MAN.DIFF COMMENT-IMPRESSION MANUAL DIFFERENTIAL; MONOCYTES % (MANUAL) 4 % (2-9); SEGMENTED NEUTROPHILS % 60 % (40-70)
[2021-03-20 05:39] LABS: PLATELET MORPHOLOGY COMMENT ADEQUATE
[2021-03-20] MEDS: IPRATROPIUM/ALBUTEROL SULFATE 3 ML SOLUTION IH SCH ×4 (06:14→23:16)
[2021-03-20] MEDS: PANTOPRAZOLE 40 MG TAB DR PO SCH ×2 (08:50→20:49)
[2021-03-20] MEDS: AMLODIPINE 5 MG TAB PO SCH (08:50)
[2021-03-20] MEDS: FAMOTIDINE 20MG VIAL IV SCH (08:50)
[2021-03-20] MEDS: Vitamin B Complex/Vit C/Folic Acid PO SCH (08:50)
[2021-03-20] MEDS: LISINOPRIL 40 MG TABLET PO SCH ×2 (08:51→20:49)
[2021-03-20] MEDS: DOXYCYCLINE 100MG+NS 250ML 250 ML IV SCH (08:51)
[2021-03-20] MEDS: HEPARIN 5,000 UNIT VIAL SQ SCH ×3 (09:12→21:02)
[2021-03-20] MEDS: LORAZEPAM 2 MG/ML 1 ML VIAL IVP PRN (11:49)
[2021-03-20] MEDS ORDERED: COMPOUND IV MISC 1 EACH IVSOLN MISC PRN (14:30)
[2021-03-20] MEDS ORDERED: LEVOFLOXACIN 500 MG/D5W 100 ML 100 ML IV SCH (15:00)
[2021-03-20] MEDS ORDERED: IRON SUCROSE COMPLEX 400 MG in 0.9% NACL 250ML 250 ML IV ONE (16:00)
[2021-03-21] MEDS: LORAZEPAM 2 MG/ML 1 ML VIAL IVP PRN ×3 (02:13→20:11)
[2021-03-21] MEDS: HYDROCODONE/ACETAMINOPHEN 10/325 MG TAB PO PRN ×3 (03:25→22:47)
[2021-03-21 04:25] VITALS: BP 164/76
[2021-03-21 05:46] LABS: HEMATOCRIT 32.7 % (42-54); MEAN CORPUSCULAR HGB CONC 31.8 g/dL (32.0-36.0); MEAN CORPUSCULAR VOLUME 91.1 fL (79-99); RED BLOOD CELL COUNT(AUTO) 3.59 MIL/uL (4.50-6.20); RED CELL DISTRIBUTION WIDTH 14.8 % (11.0-15.5); WHITE BLOOD COUNT (AUTO) 5.6 K/uL (4.8-10.8)
[2021-03-21 06:06] LABS: CREATININE 1.5 mg/dL (0.5-1.5)
[2021-03-21] MEDS: IPRATROPIUM/ALBUTEROL SULFATE 3 ML SOLUTION IH SCH (06:15)
[2021-03-21 08:00] VITALS: BP 187/87
[2021-03-21] MEDS ORDERED: HYDRALAZINE 20MG/ML VIAL IV PRN (10:00)
[2021-03-21] MEDS ORDERED: METOPROLOL TARTRATE 1 MG/ML 5ML VIAL IV PRN (10:00)
[2021-03-21] MEDS: FAMOTIDINE 20MG VIAL IV SCH (10:23)
[2021-03-21] MEDS: LISINOPRIL 40 MG TABLET PO SCH ×2 (10:23→20:10)
[2021-03-21] MEDS: Vitamin B Complex/Vit C/Folic Acid PO SCH (10:24)
[2021-03-21] MEDS: PANTOPRAZOLE 40 MG TAB DR PO SCH ×2 (10:24→20:11)
[2021-03-21] MEDS: AMLODIPINE 5 MG TAB PO SCH (10:24)
[2021-03-21] MEDS: HEPARIN 5,000 UNIT VIAL SQ SCH ×3 (10:33→20:17)
[2021-03-21] MEDS ORDERED: IPRATROPIUM/ALBUTEROL SULFATE 3 ML SOLUTION IH PRN (11:30)
[2021-03-21 11:37] VITALS: BP 183/82
[2021-03-21] MEDS: IRON SUCROSE COMPLEX 300 MG in 0.9% NACL 250ML 250 ML IV SCH (13:13)
[2021-03-21] MEDS: LEVOFLOXACIN 250 MG/D5W 50ML 50 ML IVPB SCH (14:54)
[2021-03-21 16:00] VITALS: BP 184/82
[2021-03-21] MEDS ORDERED: LEVO500T90 PO (16:08)
[2021-03-21 17:00] VITALS: BP 155/89
[2021-03-21] MEDS ORDERED: HYDROXYZINE 25 MG TABLET PO ONE (19:30)
[2021-03-21 20:00] VITALS: BP 157/86
[2021-03-21] MEDS: HYDRALAZINE 25MG TABLET PO SCH (20:11)
[2021-03-22] VITALS: BP 160/75
[2021-03-22 04:00] VITALS: BP 158/79
[2021-03-22] MEDS: LORAZEPAM 2 MG/ML 1 ML VIAL IVP PRN ×3 (04:14→21:53)
[2021-03-22] MEDS: HYDROCODONE/ACETAMINOPHEN 10/325 MG TAB PO PRN ×3 (05:38→19:47)
[2021-03-22 07:57] VITALS: BP 171/77
[2021-03-22] MEDS: PANTOPRAZOLE 40 MG TAB DR PO SCH ×2 (08:28→19:46)
[2021-03-22] MEDS: Vitamin B Complex/Vit C/Folic Acid PO SCH (08:28)
[2021-03-22] MEDS: HYDRALAZINE 25MG TABLET PO SCH ×3 (08:28→19:49)
[2021-03-22] MEDS: AMLODIPINE 5 MG TAB PO SCH (08:29)
[2021-03-22] MEDS: LISINOPRIL 40 MG TABLET PO SCH ×2 (08:29→19:47)
[2021-03-22] MEDS: FAMOTIDINE 20MG VIAL IV SCH (08:29)
[2021-03-22] MEDS: HEPARIN 5,000 UNIT VIAL SQ SCH ×3 (08:31→21:31)
[2021-03-22 12:00] VITALS: BP_SYST 133; BP_SYST 145; BP_SYST 158; BP_DIAS 68; BP_DIAS 71; BP_DIAS 82
[2021-03-22] MEDS: LEVOFLOXACIN 250 MG/D5W 50ML 50 ML IVPB SCH (15:31)
[2021-03-22] MEDS: IRON SUCROSE COMPLEX 300 MG in 0.9% NACL 250ML 250 ML IV SCH (15:32)
[2021-03-22 16:00] VITALS: BP 156/73
[2021-03-22 20:00] VITALS: BP 150/72
[2021-03-23] VITALS: BP 144/60
[2021-03-23] MEDS: HYDROCODONE/ACETAMINOPHEN 10/325 MG TAB PO PRN ×2 (01:51→08:09)
[2021-03-23 04:00] VITALS: BP 121/61
[2021-03-23] MEDS: LORAZEPAM 2 MG/ML 1 ML VIAL IVP PRN (05:38)
[2021-03-23] MEDS: AMLODIPINE 5 MG TAB PO SCH (05:47)
[2021-03-23] MEDS: HYDRALAZINE 25MG TABLET PO SCH (05:47)
[2021-03-23] MEDS: LISINOPRIL 40 MG TABLET PO SCH (05:47)
[2021-03-23 05:48] VITALS: BP 150/72
[2021-03-23 08:00] VITALS: BP 155/78
[2021-03-23] MEDS ORDERED: HYDR-4153 PO (08:00)
[2021-03-23] MEDS: Vitamin B Complex/Vit C/Folic Acid PO SCH (08:09)
[2021-03-23] MEDS: PANTOPRAZOLE 40 MG TAB DR PO SCH (08:09)
[2021-03-23] MEDS ORDERED: LEVO250T43 PO (08:11)
== END 2021-03-23 09:00 | disposition home or self-care (01) | DRG 178 ==
LOC: EDH 19:35 → EDHIP 21:27 → 3AH 23:26
PROVIDERS: ADMIT Internal Medicine; ATTEND Internal Medicine
DX: J69.0 Pneumonitis due to inhalation of food and vomit (principal); N17.9 Acute kidney failure, unspecified; D64.9 Anemia, unspecified; F41.9 Anxiety disorder, unspecified; I12.9 Hypertensive chronic kidney disease with stage 1 through stage 4 chronic kidney disease, or unspecified chronic kidney disease; N18.30 Chronic kidney disease, stage 3 unspecified; F32.A Depression, unspecified; I25.10 Atherosclerotic heart disease of native coronary artery without angina pectoris; D50.9 Iron deficiency anemia, unspecified; Z20.822 Contact with and (suspected) exposure to COVID-19; J18.9 Pneumonia, unspecified organism; E86.0 Dehydration; Z87.01 Personal history of pneumonia (recurrent); Z88.8 Allergy status to other drugs, medicaments and biological substances; Z83.3 Family history of diabetes mellitus; Z80.3 Family history of malignant neoplasm of breast; Z82.49 Family history of ischemic heart disease and other diseases of the circulatory system
CPT/HCPCS: 36415; 71045; 76770; 80048; 80053; 81001; 81003; 82550; 82728; 83540; 83550; 83605; 83735; 83880; 84100; 84145; 84484; 84550; 85025; 85027; 87040; 87071; 87077; 87088; 87186; 87205; 87635; 87804; 87880; 92610; 93005; 94640; 94664; 97039; C9803; G0378; J0360; J0696; J1644; J1756; J1956; J2060; J3490; J7050; J7120

== ENCOUNTER 2021-03-31 15:14 | Inpatient (IN) | payer MEDICARE ==
[~2021-03-31] VITALS: Ht 165.1 cm; Wt 75.2 kg
[~2021-03-31 15:14] MED LIST changes: -ASCO500W7 PO; +CARI350T26 PO; +HYDR-4068 PO; +HYDR-4153 PO; +LEVO250T43 PO; +OMEP20CA12 PO; -VENL75TA89 PO; -VITA100C26 PO; -ZINC220T4 PO; -ZOLP5TAB8 PO
[2021-03-31 15:45] LABS: APPEARANCE,URINE Cloudy (CLEAR); BILIRUBIN,URINE Negative (NEGATIVE); COLOR,URINE Yellow (YELLOW); GLUCOSE, URINE (UA) Negative (NEGATIVE); KETONES,URINE Negative (NEGATIVE); LEUKOCYTE ESTERASE ,URINE Negative (NEGATIVE); NITRATE,URINE Negative (NEGATIVE); OCCULT BLOOD,URINE Negative (NEGATIVE); PROTEIN,URINE Negative (NEGATIVE); UROBILINOGEN,URINE 0.2 mg/dL (0.2-1.0)
[2021-03-31 16:06] LABS: BASOPHILS % (AUTO) 0.3 % (0.0-5.0); EOSINOPHILS % (AUTO) 3.3 % (0.0-8.0); HEMATOCRIT 35.7 % (42-54); LYMPHOCYTES % (AUTO) 16.2 % (21.0-51.0); MEAN CORPUSCULAR HEMOGLOBIN 29.9 pg (27.0-33.0); MEAN CORPUSCULAR HGB CONC 31.4 g/dL (32.0-36.0); MEAN CORPUSCULAR VOLUME 95.2 fL (79-99); MONOCYTES % (AUTO) 8.6 % (3.0-13.0); NEUTROPHILS % (AUTO) 71.2 % (40.0-77.0); PLATELET COUNT (AUTO) 247 K/uL (130-400); RED BLOOD CELL COUNT(AUTO) 3.75 MIL/uL (4.50-6.20); RED CELL DISTRIBUTION WIDTH 15.7 % (11.0-15.5); WHITE BLOOD COUNT (AUTO) 10.4 K/uL (4.8-10.8)
[2021-03-31 16:15] LABS: BACTERIA,URINE Few /HPF (None Seen); RBC,URINE 0-1 /HPF (0-1); SQUAMOUS EPITHELIAL CELL,UR Rare /HPF (0-2); WBC,URINE 0-1 /HPF (0-1)
[2021-03-31 16:16] LABS: STARCH,URINE Few /LPF (None Seen)
[2021-03-31] MEDS ORDERED: MORPHINE 4 MG SYG IV ONE (16:30)
[2021-03-31] MEDS ORDERED: ONDANSETRON 4MG INJ IVP ONE (16:30)
[2021-03-31] MEDS ORDERED: 0.9%NACL 1000ML 1,000 ML IV ONE (16:30)
[2021-03-31 16:31] LABS: CARBON DIOXIDE 25 mmol/L (21-32); CHLORIDE 99 mmol/L (101-111); GLOMERULAR FILTR. RATE CALC 78 mL/min (>60); GLUCOSE,RANDOM 118 mg/dL (70-105); POTASSIUM 4.6 mmol/L (3.5-5.1); SODIUM SERUM 133 mmol/L (136-145); UREA NITROGEN, BLOOD 55 mg/dL (7-18)
[2021-03-31 16:35] LABS: ALANINE AMINOTRANSFERASE 26 U/L (12-78); ALBUMIN 3.7 g/dL (3.5-5.0); AMYLASE 111 U/L (25-115); ASPARTATE AMINOTRANSFERASE 19 U/L (10-37); BILIRUBIN,TOTAL 0.2 mg/dL (0.2-1.0); CREATINE KINASE, TOTAL 123 U/L (21-232); LIPASE 184 U/L (114-286); TOTAL PROTEIN, SERUM 8.5 g/dL (6.0-8.3)
[2021-03-31] MEDS ORDERED: BISACODYL 10 MG SUPP.RECT RC ONE (18:00)
[2021-03-31 18:14] LABS: MAGNESIUM 2.3 mg/dL (1.80-2.40)
[2021-03-31] MEDS ORDERED: LACTULOSE 20 GM/30 ML UDCUP PO ONE (19:30)
[2021-03-31] MEDS ORDERED: LACTATED RINGERS 1000ML 1,000 ML IV SCH (19:30)
[2021-03-31] MEDS ORDERED: LACTATED RINGERS 1000ML IV SCH (19:30)
[2021-03-31] MEDS: LACTULOSE 20 GM/30 ML UDCUP PO SCH (19:30)
[2021-03-31] MEDS: FAMOTIDINE 20MG TAB PO SCH (20:44)
[2021-03-31] MEDS: HEPARIN 5,000 UNIT VIAL SQ SCH (20:44)
[2021-03-31] MEDS: LISINOPRIL 40 MG TABLET PO SCH (20:44)
[2021-03-31] MEDS: HYDRALAZINE 25MG TABLET PO SCH (20:44)
[2021-04-01] MEDS ORDERED: KETOROLAC 15MG/ML VIAL (15MG/ML) ONE
[2021-04-01] MEDS: LACTULOSE 20 GM/30 ML UDCUP PO SCH ×2 (03:22→09:04)
[2021-04-01] MEDS: LORAZEPAM 1 MG TABLET PO PRN ×2 (05:37→17:19)
[2021-04-01] MEDS: HYDROCODONE/ACETAMINOPHEN 10/325 MG TAB PO PRN ×3 (05:38→21:58)
[2021-04-01 07:00] LABS: BASOPHILS % (AUTO) 0.4 % (0.0-5.0); EOSINOPHILS % (AUTO) 3.6 % (0.0-8.0); HEMATOCRIT 32.3 % (42-54); LYMPHOCYTES % (AUTO) 22.4 % (21.0-51.0); MEAN CORPUSCULAR HEMOGLOBIN 29.4 pg (27.0-33.0); MEAN CORPUSCULAR VOLUME 97.9 fL (79-99); MONOCYTES % (AUTO) 11.4 % (3.0-13.0); NEUTROPHILS % (AUTO) 61.7 % (40.0-77.0); PLATELET COUNT (AUTO) 201 K/uL (130-400); RED CELL DISTRIBUTION WIDTH 15.7 % (11.0-15.5); WHITE BLOOD COUNT (AUTO) 8.2 K/uL (4.8-10.8)
[2021-04-01 07:17] LABS: MAGNESIUM 2.1 mg/dL (1.80-2.40); PHOSPHORUS 4.1 mg/dL (2.5-4.9); POTASSIUM 4.6 mmol/L (3.5-5.1)
[2021-04-01 09:20] VITALS: BP 173/91
[2021-04-01] MEDS: FAMOTIDINE 20MG TAB PO SCH ×2 (10:05→21:10)
[2021-04-01] MEDS: AMLODIPINE 5 MG TAB PO SCH (10:05)
[2021-04-01] MEDS: HYDRALAZINE 25MG TABLET PO SCH ×2 (10:05→21:10)
[2021-04-01] MEDS: LISINOPRIL 40 MG TABLET PO SCH ×2 (10:05→21:10)
[2021-04-01] MEDS: HEPARIN 5,000 UNIT VIAL SQ SCH ×3 (10:06→21:09)
[2021-04-01] MEDS: 0.9%NACL 1000ML 1,000 ML IV SCH ×2 (10:07→21:59)
[2021-04-01 12:02] VITALS: BP 147/90
[2021-04-01 16:00] VITALS: BP 119/59
[2021-04-01 20:32] VITALS: BP 146/67
[2021-04-02 00:32] VITALS: BP 134/71
[2021-04-02] MEDS: HYDROCODONE/ACETAMINOPHEN 10/325 MG TAB PO PRN ×3 (04:25→21:15)
[2021-04-02] MEDS: LORAZEPAM 1 MG TABLET PO PRN ×3 (04:25→21:14)
[2021-04-02 04:32] VITALS: BP 156/81
[2021-04-02 04:48] LABS: HEMATOCRIT 31.7 % (42-54); MEAN CORPUSCULAR HEMOGLOBIN 30.4 pg (27.0-33.0); MEAN CORPUSCULAR HGB CONC 32.5 g/dL (32.0-36.0); MEAN CORPUSCULAR VOLUME 93.5 fL (79-99); RED BLOOD CELL COUNT(AUTO) 3.39 MIL/uL (4.50-6.20); RED CELL DISTRIBUTION WIDTH 15.2 % (11.0-15.5); WHITE BLOOD COUNT (AUTO) 5.3 K/uL (4.8-10.8)
[2021-04-02 05:00] LABS: CREATININE 1.7 mg/dL (0.5-1.5); POTASSIUM 4.7 mmol/L (3.5-5.1)
[2021-04-02 08:00] VITALS: BP 154/81
[2021-04-02] MEDS: HYDRALAZINE 25MG TABLET PO SCH ×2 (09:46→21:12)
[2021-04-02] MEDS: AMLODIPINE 5 MG TAB PO SCH (09:46)
[2021-04-02] MEDS: HEPARIN 5,000 UNIT VIAL SQ SCH ×3 (09:48→21:18)
[2021-04-02] MEDS: FAMOTIDINE 20MG TAB PO SCH ×2 (09:48→21:11)
[2021-04-02] MEDS: LISINOPRIL 40 MG TABLET PO SCH ×2 (09:49→21:12)
[2021-04-02] MEDS: 0.9%NACL 1000ML 1,000 ML IV SCH ×2 (10:03→21:35)
[2021-04-02 12:00] VITALS: BP 150/87
[2021-04-02] MEDS ORDERED: POLYETHYLENE GLYCOL 3350 17 GM POWD.PACK PO SCH (12:30)
[2021-04-02 16:00] VITALS: BP 135/71
[2021-04-02 20:00] VITALS: BP 168/90
[2021-04-02] MEDS: LACTULOSE 20 GM/30 ML UDCUP PO SCH (21:12)
[2021-04-02] MEDS ORDERED: ZOLP10TA2 PO (23:42)
[2021-04-03] VITALS (7 sets, daily range): BP systolic 157–178; BP diastolic 79–90
[2021-04-03] MEDS ORDERED: BISACODYL 10 MG SUPP.RECT RC ONE ×2 (01:12→01:30)
[2021-04-03] MEDS: HYDROCODONE/ACETAMINOPHEN 10/325 MG TAB PO PRN ×4 (04:37→21:34)
[2021-04-03] MEDS: LORAZEPAM 1 MG TABLET PO PRN ×3 (05:19→18:36)
[2021-04-03 06:34] LABS: EOSINOPHILS % (AUTO) 8.5 % (0.0-8.0); HEMATOCRIT 30.4 % (42-54); LYMPHOCYTES % (AUTO) 32.5 % (21.0-51.0); MEAN CORPUSCULAR HEMOGLOBIN 30.3 pg (27.0-33.0); MEAN CORPUSCULAR HGB CONC 32.2 g/dL (32.0-36.0); MEAN CORPUSCULAR VOLUME 94.1 fL (79-99); MONOCYTES % (AUTO) 14.8 % (3.0-13.0); NEUTROPHILS % (AUTO) 42.4 % (40.0-77.0); PLATELET COUNT (AUTO) 197 K/uL (130-400); RED BLOOD CELL COUNT(AUTO) 3.23 MIL/uL (4.50-6.20); RED CELL DISTRIBUTION WIDTH 14.9 % (11.0-15.5)
[2021-04-03 06:41] LABS: CREATININE 1.8 mg/dL (0.5-1.5); POTASSIUM 4.5 mmol/L (3.5-5.1)
[2021-04-03] MEDS: HEPARIN 5,000 UNIT VIAL SQ SCH ×3 (09:00→21:30)
[2021-04-03] MEDS: HYDRALAZINE 25MG TABLET PO SCH ×2 (10:07→21:25)
[2021-04-03] MEDS: LACTULOSE 20 GM/30 ML UDCUP PO SCH ×2 (10:07→21:24)
[2021-04-03] MEDS: FAMOTIDINE 20MG TAB PO SCH ×2 (10:07→21:25)
[2021-04-03] MEDS: AMLODIPINE 5 MG TAB PO SCH (10:07)
[2021-04-03] MEDS: LISINOPRIL 40 MG TABLET PO SCH ×2 (10:08→21:24)
[2021-04-03] MEDS: ONDANSETRON 4MG INJ IV PRN (18:13)
[2021-04-03] MEDS ORDERED: NACL IV ONE (20:30)
[2021-04-04] VITALS (7 sets, daily range): BP systolic 145–189; BP diastolic 69–102
[2021-04-04] MEDS ORDERED: ZOLPIDEM TARTRATE 5 MG TAB ONE (00:25)
[2021-04-04] MEDS: 0.9%NACL 1000ML 1,000 ML IV SCH ×2 (00:26→03:39)
[2021-04-04] MEDS: ONDANSETRON 4MG INJ IV PRN (00:27)
[2021-04-04] MEDS ORDERED: ZOLPIDEM TARTRATE 5 MG TAB PO ONE (00:30)
[2021-04-04] MEDS: LORAZEPAM 1 MG TABLET PO PRN ×2 (03:38→16:46)
[2021-04-04] MEDS: HYDROCODONE/ACETAMINOPHEN 10/325 MG TAB PO PRN ×3 (05:33→18:26)
[2021-04-04] MEDS: AMLODIPINE 5 MG TAB PO SCH (08:22)
[2021-04-04] MEDS: LISINOPRIL 40 MG TABLET PO SCH ×2 (08:22→20:18)
[2021-04-04] MEDS: FAMOTIDINE 20MG TAB PO SCH ×2 (08:22→20:18)
[2021-04-04] MEDS: LACTULOSE 20 GM/30 ML UDCUP PO SCH ×2 (08:22→20:18)
[2021-04-04] MEDS: HYDRALAZINE 25MG TABLET PO SCH ×2 (08:22→20:18)
[2021-04-04] MEDS: HEPARIN 5,000 UNIT VIAL SQ SCH ×3 (08:31→20:19)
[2021-04-04] MEDS: HYDRALAZINE 20MG/ML VIAL IV PRN ×2 (12:45→20:49)
[2021-04-04] MEDS ORDERED: LACT10SO9 PO (13:58)
== END 2021-04-04 21:10 | disposition home or self-care (01) | DRG 392 ==
LOC: EDH 15:14 → OBSVTOIN 19:19 → EDHIP 19:19 → 3DH 04-01 09:20
PROVIDERS: ADMIT Hospitalist; ATTEND Hospitalist
DX: K59.00 Constipation, unspecified (principal); N17.9 Acute kidney failure, unspecified; E86.0 Dehydration; K44.9 Diaphragmatic hernia without obstruction or gangrene; F41.9 Anxiety disorder, unspecified; N18.30 Chronic kidney disease, stage 3 unspecified; I12.9 Hypertensive chronic kidney disease with stage 1 through stage 4 chronic kidney disease, or unspecified chronic kidney disease; R00.0 Tachycardia, unspecified; T40.605A Adverse effect of unspecified narcotics, initial encounter; Y92.89 Other specified places as the place of occurrence of the external cause; Z87.440 Personal history of urinary (tract) infections; Z87.01 Personal history of pneumonia (recurrent); Z79.891 Long term (current) use of opiate analgesic; Z88.8 Allergy status to other drugs, medicaments and biological substances; Z83.3 Family history of diabetes mellitus; Z80.3 Family history of malignant neoplasm of breast; Z82.49 Family history of ischemic heart disease and other diseases of the circulatory system
CPT/HCPCS: 36415; 71045; 74018; 74176; 80048; 80053; 81001; 82150; 82330; 82550; 83690; 83735; 84100; 84484; 85025; 85027; 92610; 93005; G0378; J0360; J1644; J1885; J2270; J2405; J7030

== ENCOUNTER 2021-04-15 09:10 | Emergency (ER) | payer MEDICARE ==
[~2021-04-15] VITALS: Ht 170.2 cm; Wt 73.0 kg
[~2021-04-15 09:10] MED LIST changes: +LACT10SO9 PO; +ZOLP10TA2 PO
[2021-04-15 09:49] LABS: BASOPHILS % (AUTO) 0.4 % (0.0-5.0); EOSINOPHILS % (AUTO) 6.1 % (0.0-8.0); HEMATOCRIT 35.3 % (42-54); LYMPHOCYTES % (AUTO) 15.8 % (21.0-51.0); MEAN CORPUSCULAR HEMOGLOBIN 30.8 pg (27.0-33.0); MEAN CORPUSCULAR HGB CONC 32.6 g/dL (32.0-36.0); MEAN CORPUSCULAR VOLUME 94.6 fL (79-99); MONOCYTES % (AUTO) 8.8 % (3.0-13.0); NEUTROPHILS % (AUTO) 68.4 % (40.0-77.0); PLATELET COUNT (AUTO) 195 K/uL (130-400); RED BLOOD CELL COUNT(AUTO) 3.73 MIL/uL (4.50-6.20); RED CELL DISTRIBUTION WIDTH 14.2 % (11.0-15.5); WHITE BLOOD COUNT (AUTO) 7.9 K/uL (4.8-10.8)
[2021-04-15 09:58] LABS: CREATININE 1.9 mg/dL (0.5-1.5); POTASSIUM 5.2 mmol/L (3.5-5.1)
[2021-04-15 10:02] LABS: ALBUMIN 3.8 g/dL (3.5-5.0); BILIRUBIN,TOTAL 0.2 mg/dL (0.2-1.0); TOTAL PROTEIN, SERUM 8.8 g/dL (6.0-8.3)
[2021-04-15 10:28] LABS: INR 0.99 (0.85-1.15); PROTHROMBIN TIME 10.8 SEC (9.6-11.6)
[2021-04-15 10:30] LABS: PARTIAL THROMBOPLASTIN TIME 28.6 SEC (26.3-35.5)
[2021-04-15] MEDS ORDERED: METOCLOPRAMIDE 10 MG/2 ML VIAL IVP SCH (11:00)
[2021-04-15] MEDS ORDERED: LACTATED RINGERS 1000ML 1,000 ML IV ONE (11:30)
[2021-04-15] MEDS ORDERED: METO-549 PO (12:31)
[2021-04-15] MEDS ORDERED: ESOM20CA60 PO (12:31)
[2021-04-15] MEDS ORDERED: LORAZEPAM 2 MG/ML 1 ML VIAL IVP ONE (13:00)
[2021-04-15 13:15] VITALS: BP 167/84
== END 2021-04-15 13:16 | disposition home or self-care (01) ==
LOC: EDH 09:10
DX: R06.6 Hiccough (principal); I12.9 Hypertensive chronic kidney disease with stage 1 through stage 4 chronic kidney disease, or unspecified chronic kidney disease; N18.9 Chronic kidney disease, unspecified; Z79.899 Other long term (current) drug therapy
CPT/HCPCS: 36415; 71045; 74176; 80053; 82550; 83690; 84484; 85025; 85610; 85730; 86850; 86900; 86901; 96361; 96374; 99285; J2765; J7120; 93005; J2060

== ENCOUNTER 2021-08-15 15:04 | Emergency (ER) | payer MEDICARE ==
[~2021-08-15] VITALS: Ht 170.2 cm; Wt 72.6 kg
[~2021-08-15 15:04] MED LIST changes: +ESOM20CA60 PO; +METO-549 PO
[2021-08-15 15:50] LABS: BASOPHILS % (AUTO) 0.2 % (0.0-5.0); EOSINOPHILS % (AUTO) 1.6 % (0.0-8.0); HEMATOCRIT 35.9 % (42-54); LYMPHOCYTES % (AUTO) 8.5 % (21.0-51.0); MEAN CORPUSCULAR HEMOGLOBIN 30.6 pg (27.0-33.0); MEAN CORPUSCULAR HGB CONC 33.1 g/dL (32.0-36.0); MEAN CORPUSCULAR VOLUME 92.3 fL (79-99); MONOCYTES % (AUTO) 7.3 % (3.0-13.0); NEUTROPHILS % (AUTO) 81.7 % (40.0-77.0); PLATELET COUNT (AUTO) 156 K/uL (130-400); RED BLOOD CELL COUNT(AUTO) 3.89 MIL/uL (4.50-6.20); RED CELL DISTRIBUTION WIDTH 13.2 % (11.0-15.5); WHITE BLOOD COUNT (AUTO) 9.8 K/uL (4.8-10.8)
[2021-08-15 16:02] LABS: CREATININE 1.8 mg/dL (0.5-1.5)
[2021-08-15 16:08] LABS: ALBUMIN 3.6 g/dL (3.5-5.0); BILIRUBIN,TOTAL 0.2 mg/dL (0.2-1.0); TOTAL PROTEIN, SERUM 7.7 g/dL (6.0-8.3)
[2021-08-15 16:14] LABS: APPEARANCE,URINE Clear (CLEAR); BILIRUBIN,URINE Negative (NEGATIVE); COLOR,URINE Yellow (YELLOW); GLUCOSE, URINE (UA) Negative (NEGATIVE); KETONES,URINE Negative (NEGATIVE); LEUKOCYTE ESTERASE ,URINE Negative (NEGATIVE); NITRATE,URINE Negative (NEGATIVE); OCCULT BLOOD,URINE Negative (NEGATIVE); PROTEIN,URINE Negative (NEGATIVE); UROBILINOGEN,URINE 0.2 mg/dL (0.2-1.0)
[2021-08-15 16:23] LABS: POTASSIUM 4.7 mmol/L (3.5-5.1)
[2021-08-15] MEDS ORDERED: 0.9%NACL 1000ML 1,000 ML IV ONE (16:30)
[2021-08-15] MEDS ORDERED: CEFTRIAXONE 1G VIAL IVP ONE (16:30)
[2021-08-15] MEDS ORDERED: ACETAMINOPHEN 500 MG TABLET PO ONE (16:30)
[2021-08-15] MEDS ORDERED: ACETAMINOPHEN 650 MG SUPPOSITORY RC ONE (16:44)
[2021-08-15 18:30] VITALS: BP 118/55
== END 2021-08-15 19:28 | disposition home or self-care (01) ==
LOC: EDH 15:04
DX: B34.9 Viral infection, unspecified (principal); F41.9 Anxiety disorder, unspecified; Z20.822 Contact with and (suspected) exposure to COVID-19; I12.9 Hypertensive chronic kidney disease with stage 1 through stage 4 chronic kidney disease, or unspecified chronic kidney disease; N18.9 Chronic kidney disease, unspecified
CPT/HCPCS: 36415; 71045; 80053; 81003; 83605; 85025; 87635; 87804 ×2; 93005; 96374; 99285; C9803; J0696; 96361

== ENCOUNTER 2022-03-07 17:40 | Emergency (ER) | payer MEDICARE ==
[~2022-03-07] VITALS: Ht 170.2 cm; Wt 72.6 kg
[~2022-03-07 17:40] MED LIST changes: -LEVO250T43 PO; +LEVO250T75 PO
[2022-03-07 18:07] LABS: BASOPHILS % (AUTO) 0.3 % (0.0-5.0); EOSINOPHILS % (AUTO) 1.4 % (0.0-8.0); HEMATOCRIT 32.8 % (42-54); LYMPHOCYTES % (AUTO) 18.4 % (21.0-51.0); MEAN CORPUSCULAR HGB CONC 33.5 g/dL (32.0-36.0); MEAN CORPUSCULAR VOLUME 92.4 fL (79-99); NEUTROPHILS % (AUTO) 68.5 % (40.0-77.0); PLATELET COUNT (AUTO) 163 K/uL (130-400); RED BLOOD CELL COUNT(AUTO) 3.55 MIL/uL (4.50-6.20); RED CELL DISTRIBUTION WIDTH 12.9 % (11.0-15.5); WHITE BLOOD COUNT (AUTO) 10.4 K/uL (4.8-10.8)
[2022-03-07 18:28] LABS: POTASSIUM 4.8 mmol/L (3.5-5.1)
[2022-03-07 18:32] LABS: ALBUMIN 3.5 g/dL (3.5-5.0); TOTAL PROTEIN, SERUM 8.1 g/dL (6.0-8.3)
[2022-03-07] MEDS ORDERED: 0.9%NACL 1000ML 2,500 ML IV ONE (19:00)
[2022-03-07] MEDS ORDERED: ZOSYN 3.375GM +NS 50ML IV ONE (19:00)
[2022-03-07 19:16] LABS: APPEARANCE,URINE CLEAR (CLEAR); BILIRUBIN,URINE NEGATIVE (NEGATIVE); COLOR,URINE YELLOW (YELLOW); GLUCOSE, URINE (UA) NEGATIVE (NEGATIVE); KETONES,URINE NEGATIVE (NEGATIVE); LEUKOCYTE ESTERASE ,URINE NEGATIVE Leu/uL (NEGATIVE); NITRATE,URINE NEGATIVE (NEGATIVE); OCCULT BLOOD,URINE NEGATIVE (NEGATIVE); PH,URINE 5.5 (5.0-8.0); PROTEIN,URINE 10 mg/dL (NEGATIVE); UROBILINOGEN,URINE 0.2 mg/dL (0.2-1.0)
[2022-03-07 19:17] LABS: RBC,URINE 0-1 /HPF (0-1); SQUAMOUS EPITHELIAL CELL,UR RARE /HPF (0-2); WBC,URINE 0-1 /HPF (0-1)
[2022-03-07] MEDS ORDERED: BENZONATATE 100 MG CAPSULE PO ONE (20:00)
[2022-03-07] MEDS ORDERED: AMOX1TAB16 PO (20:12)
[2022-03-07] MEDS ORDERED: AZIT250T PO (20:12)
[2022-03-07] MEDS ORDERED: BENZ200C53 PO (20:13)
[2022-03-07] MEDS ORDERED: AZITHROMYCIN 500MG+NS 250ML IVPB SCH (20:23)
[2022-03-07 20:48] VITALS: BP 134/64
== END 2022-03-07 22:01 | disposition home or self-care (01) ==
LOC: EDH 17:40
DX: J40 Bronchitis, not specified as acute or chronic (principal); F41.9 Anxiety disorder, unspecified; I12.9 Hypertensive chronic kidney disease with stage 1 through stage 4 chronic kidney disease, or unspecified chronic kidney disease; N18.9 Chronic kidney disease, unspecified; Z20.822 Contact with and (suspected) exposure to COVID-19; Z86.19 Personal history of other infectious and parasitic diseases
CPT/HCPCS: 99285; 96365; 71045 ×2; 96367; 87635; 80053; 85025; 87040 ×2; 84484; 87804 ×2; 83605; 81001; 36415; 93005; C9803; J7030; J2543; J0456

== ENCOUNTER 2022-04-28 11:41 | Inpatient (IN) | payer MEDICARE ==
[~2022-04-28] VITALS: Ht 170.2 cm; Wt 73.1 kg
[~2022-04-28 11:41] MED LIST changes: +AMOX1TAB16 PO; +AZIT250T PO; +BENZ200C53 PO
[2022-04-28] MEDS ORDERED: LACTATED RINGERS 1000ML 1,000 ML IV ONE (12:30)
[2022-04-28 12:32] LABS: BASOPHILS % (AUTO) 0.2 % (0.0-5.0); EOSINOPHILS % (AUTO) 0.2 % (0.0-8.0); HEMATOCRIT 32.8 % (42-54); MEAN CORPUSCULAR HEMOGLOBIN 30.1 pg (27.0-33.0); MEAN CORPUSCULAR HGB CONC 32.3 g/dL (32.0-36.0); MEAN CORPUSCULAR VOLUME 93.2 fL (79-99); MONOCYTES % (AUTO) 8.9 % (3.0-13.0); NEUTROPHILS % (AUTO) 76.2 % (40.0-77.0); PLATELET COUNT (AUTO) 176 K/uL (130-400); RED BLOOD CELL COUNT(AUTO) 3.52 MIL/uL (4.50-6.20); RED CELL DISTRIBUTION WIDTH 13.2 % (11.0-15.5); WHITE BLOOD COUNT (AUTO) 9.4 K/uL (4.8-10.8)
[2022-04-28 12:41] LABS: CREATININE 2.7 mg/dL (0.5-1.5); INR 0.99 (0.85-1.15); POTASSIUM 5.4 mmol/L (3.5-5.1); PROTHROMBIN TIME 10.8 SEC (9.6-11.6)
[2022-04-28 12:42] LABS: PARTIAL THROMBOPLASTIN TIME 29.9 SEC (26.3-35.5)
[2022-04-28 12:57] LABS: B-TYPE NATRIURETIC PEPTIDE 36 pg/mL (0-100)
[2022-04-28 13:04] LABS: ALBUMIN 3.2 g/dL (3.5-5.0); MAGNESIUM 1.8 mg/dL (1.80-2.40); TOTAL PROTEIN, SERUM 8.1 g/dL (6.0-8.3)
[2022-04-28 13:26] LABS: APPEARANCE,URINE CLEAR (CLEAR); BILIRUBIN,URINE NEGATIVE (NEGATIVE); COLOR,URINE YELLOW (YELLOW); GLUCOSE, URINE (UA) NEGATIVE (NEGATIVE); KETONES,URINE NEGATIVE (NEGATIVE); LEUKOCYTE ESTERASE ,URINE NEGATIVE Leu/uL (NEGATIVE); NITRATE,URINE NEGATIVE (NEGATIVE); OCCULT BLOOD,URINE SMALL (NEGATIVE); PROTEIN,URINE 20 mg/dL (NEGATIVE); UROBILINOGEN,URINE 0.2 mg/dL (0.2-1.0)
[2022-04-28] MEDS ORDERED: 0.9%NACL 1000ML 1,000 ML IV ONE (14:00)
[2022-04-28 14:01] LABS: BACTERIA,URINE FEW /HPF (None Seen)
[2022-04-28] MEDS ORDERED: ONDANSETRON 4MG INJ IVP PRN (14:30)
[2022-04-28] MEDS ORDERED: HEPARIN 5,000 UNIT VIAL SQ SCH (14:30)
[2022-04-28] MEDS ORDERED: ACETAMINOPHEN 325 MG TAB PO PRN (14:30)
[2022-04-28] MEDS: 0.9%NACL 1000ML 1,000 ML IV SCH (15:51)
[2022-04-28 16:30] VITALS: BP 147/70
[2022-04-28] MEDS ORDERED: HEPARIN 25,000 UNITS/250ML D5W 250 ML IV SCH (19:00)
[2022-04-28] MEDS: ZOSYN 3.375GM +NS 50ML IV SCH (19:39)
[2022-04-28] MEDS: DOXYCYCLINE HYCLATE 100 MG TABLET PO SCH (19:39)
[2022-04-28 20:07] VITALS: BP 115/41
[2022-04-28] MEDS ORDERED: HEPARIN 5,000 UNIT VIAL ONE (20:20)
[2022-04-28 20:26] LABS: INR 1.04 (0.85-1.15); PROTHROMBIN TIME 11.3 SEC (9.6-11.6)
[2022-04-28 20:27] LABS: PARTIAL THROMBOPLASTIN TIME 28.8 SEC (26.3-35.5)
[2022-04-29] VITALS (9 sets, daily range): BP systolic 104–162; BP diastolic 49–82
[2022-04-29] MEDS: 0.9%NACL 1000ML 1,000 ML IV SCH ×2 (03:58→17:36)
[2022-04-29] MEDS: ZOSYN 3.375GM +NS 50ML IV SCH ×2 (07:38→20:39)
[2022-04-29] MEDS: ASPIRIN 81MG CHEW TAB PO SCH (08:01)
[2022-04-29] MEDS: DOXYCYCLINE HYCLATE 100 MG TABLET PO SCH ×2 (08:02→20:39)
[2022-04-29] MEDS ORDERED: SUCR1TAB2 PO (08:25)
[2022-04-29] MEDS ORDERED: LORA2ORA5 PO (08:25)
[2022-04-29] MEDS ORDERED: LISI20TA24 PO (08:25)
[2022-04-29] MEDS ORDERED: hydrocodone (08:25)
[2022-04-29] MEDS ORDERED: AMLO10TA4 PO (08:57)
[2022-04-29] MEDS ORDERED: CLON1PAT13 TD (08:57)
[2022-04-29] MEDS ORDERED: LORAZEPAM 2 MG TABLET PO ONE (10:30)
[2022-04-29] MEDS ORDERED: LORAZEPAM 1 MG TABLET PO SCH (11:00)
[2022-04-29] MEDS: HEPARIN 5,000 UNIT VIAL SQ SCH ×2 (11:51→20:48)
[2022-04-29] MEDS: MORPHINE 2 MG SYG IVP PRN ×3 (13:19→23:42)
[2022-04-29] MEDS ORDERED: CLON.3P TD (13:45)
[2022-04-29] MEDS ORDERED: PANTOPRAZOLE 40 MG TAB DR PO ONE (17:30)
[2022-04-29] MEDS ORDERED: LISINOPRIL 10 MG TABLET PO ONE (17:30)
[2022-04-29] MEDS ORDERED: AMLODIPINE 5 MG TAB PO ONE (17:30)
[2022-04-29] MEDS: SUCRALFATE 1 GM TABLET PO SCH (20:38)
[2022-04-29] MEDS: ZOLPIDEM TARTRATE 5 MG TAB PO SCH (20:39)
[2022-04-29] MEDS: LORAZEPAM 1 MG TABLET PO SCH (20:39)
[2022-04-29] MEDS ORDERED: NON-FORMULARY MEDICATION 1 EACH (Omeprazole 20 MG) PO SCH (21:00)
[2022-04-30 03:29] LABS: HEMATOCRIT 31.2 % (42-54); MEAN CORPUSCULAR HEMOGLOBIN 30.1 pg (27.0-33.0); MEAN CORPUSCULAR HGB CONC 32.1 g/dL (32.0-36.0); RED BLOOD CELL COUNT(AUTO) 3.32 MIL/uL (4.50-6.20); RED CELL DISTRIBUTION WIDTH 12.9 % (11.0-15.5); WHITE BLOOD COUNT (AUTO) 5.5 K/uL (4.8-10.8)
[2022-04-30 04:01] VITALS: BP 149/65
[2022-04-30 04:10] LABS: CREATININE 1.7 mg/dL (0.5-1.5); MAGNESIUM 1.8 mg/dL (1.80-2.40)
[2022-04-30 08:13] VITALS: BP 169/77
[2022-04-30] MEDS: ASPIRIN 81MG CHEW TAB PO SCH (09:36)
[2022-04-30] MEDS: LORAZEPAM 1 MG TABLET PO SCH ×3 (09:36→21:28)
[2022-04-30] MEDS: 0.9%NACL 1000ML 1,000 ML IV SCH (09:37)
[2022-04-30] MEDS: PANTOPRAZOLE 40 MG TAB DR PO SCH (09:37)
[2022-04-30] MEDS: LISINOPRIL 20 MG TABLET PO SCH (09:37)
[2022-04-30] MEDS: DOXYCYCLINE HYCLATE 100 MG TABLET PO SCH ×2 (09:37→21:28)
[2022-04-30] MEDS: ZOSYN 3.375GM +NS 50ML IV SCH ×2 (09:37→21:28)
[2022-04-30] MEDS: AMLODIPINE 5 MG TAB PO SCH (09:37)
[2022-04-30] MEDS: SUCRALFATE 1 GM TABLET PO SCH ×4 (09:37→21:28)
[2022-04-30 11:40] VITALS: BP 182/77
[2022-04-30] MEDS: HEPARIN 5,000 UNIT VIAL SQ SCH ×2 (12:14→21:41)
[2022-04-30] MEDS ORDERED: CLONIDINE HCL 0.2 MG TABLET PO SCH (12:30)
[2022-04-30 16:19] VITALS: BP 171/78
[2022-04-30] MEDS: CLONIDINE 0.3 MG/ 24 HR PATCH TD SCH (17:12)
[2022-04-30 20:18] VITALS: BP 162/100
[2022-04-30] MEDS: ZOLPIDEM TARTRATE 5 MG TAB PO SCH (21:28)
[2022-04-30 23:45] VITALS: BP 164/80
[2022-05-01 04:48] VITALS: BP 181/84
[2022-05-01] MEDS: MORPHINE 2 MG SYG IVP PRN ×2 (04:48→20:56)
[2022-05-01] MEDS: 0.9%NACL 1000ML 1,000 ML IV SCH ×3 (04:51→22:30)
[2022-05-01 08:00] VITALS: BP 175/80
[2022-05-01] MEDS: ZOSYN 3.375GM +NS 50ML IV SCH ×2 (08:25→20:06)
[2022-05-01] MEDS: SUCRALFATE 1 GM TABLET PO SCH ×4 (08:36→20:06)
[2022-05-01] MEDS: ASPIRIN 81MG CHEW TAB PO SCH (08:36)
[2022-05-01] MEDS: LORAZEPAM 1 MG TABLET PO SCH ×3 (08:37→22:04)
[2022-05-01] MEDS: AMLODIPINE 5 MG TAB PO SCH (08:37)
[2022-05-01] MEDS: PANTOPRAZOLE 40 MG TAB DR PO SCH (08:37)
[2022-05-01] MEDS: LISINOPRIL 20 MG TABLET PO SCH (08:37)
[2022-05-01] MEDS: DOXYCYCLINE HYCLATE 100 MG TABLET PO SCH ×2 (08:37→20:06)
[2022-05-01] MEDS: HEPARIN 5,000 UNIT VIAL SQ SCH ×2 (12:30→23:45)
[2022-05-01 16:00] VITALS: BP 167/76
[2022-05-01] MEDS ORDERED: CLONIDINE HCL 0.1 MG TABLET PO PRN (18:00)
[2022-05-01 20:00] VITALS: BP 168/76
[2022-05-01] MEDS: ZOLPIDEM TARTRATE 5 MG TAB PO SCH (22:04)
[2022-05-02] VITALS: BP 135/65
[2022-05-02 04:00] VITALS: BP 139/74
[2022-05-02 05:17] LABS: HEMATOCRIT 32.3 % (42-54); MEAN CORPUSCULAR HEMOGLOBIN 30.5 pg (27.0-33.0); MEAN CORPUSCULAR HGB CONC 33.1 g/dL (32.0-36.0); RED BLOOD CELL COUNT(AUTO) 3.51 MIL/uL (4.50-6.20); RED CELL DISTRIBUTION WIDTH 12.7 % (11.0-15.5); WHITE BLOOD COUNT (AUTO) 4.7 K/uL (4.8-10.8)
[2022-05-02 05:59] LABS: CREATININE 1.5 mg/dL (0.5-1.5); MAGNESIUM 1.7 mg/dL (1.80-2.40); POTASSIUM 3.9 mmol/L (3.5-5.1)
[2022-05-02 08:00] VITALS: BP 176/82
[2022-05-02] MEDS: LORAZEPAM 1 MG TABLET PO SCH ×3 (08:13→20:54)
[2022-05-02] MEDS: SUCRALFATE 1 GM TABLET PO SCH ×4 (08:13→20:54)
[2022-05-02] MEDS: DOXYCYCLINE HYCLATE 100 MG TABLET PO SCH ×2 (08:13→20:54)
[2022-05-02] MEDS: LISINOPRIL 20 MG TABLET PO SCH (08:13)
[2022-05-02] MEDS: PANTOPRAZOLE 40 MG TAB DR PO SCH (08:13)
[2022-05-02] MEDS: ZOSYN 3.375GM +NS 50ML IV SCH ×2 (08:13→20:54)
[2022-05-02] MEDS: ASPIRIN 81MG CHEW TAB PO SCH (08:14)
[2022-05-02] MEDS: AMLODIPINE 5 MG TAB PO SCH (08:14)
[2022-05-02 11:49] VITALS: BP 175/84
[2022-05-02] MEDS: HEPARIN 5,000 UNIT VIAL SQ SCH ×2 (11:59→20:57)
[2022-05-02 16:00] VITALS: BP 149/73
[2022-05-02 20:00] VITALS: BP 146/70
[2022-05-02] MEDS: ZOLPIDEM TARTRATE 5 MG TAB PO SCH (20:54)
[2022-05-02] MEDS: MORPHINE 2 MG SYG IVP PRN (21:01)
[2022-05-03] VITALS: BP 128/63
[2022-05-03 04:00] VITALS: BP 129/62
[2022-05-03] MEDS: ZOSYN 3.375GM +NS 50ML IV SCH ×2 (07:31→20:42)
[2022-05-03] MEDS: SUCRALFATE 1 GM TABLET PO SCH ×4 (07:31→20:42)
[2022-05-03 08:00] VITALS: BP 143/69
[2022-05-03] MEDS: AMLODIPINE 5 MG TAB PO SCH (08:31)
[2022-05-03] MEDS: DOXYCYCLINE HYCLATE 100 MG TABLET PO SCH ×2 (08:31→20:42)
[2022-05-03] MEDS: LISINOPRIL 20 MG TABLET PO SCH (08:32)
[2022-05-03] MEDS: PANTOPRAZOLE 40 MG TAB DR PO SCH (08:32)
[2022-05-03] MEDS: LORAZEPAM 1 MG TABLET PO SCH ×3 (08:32→22:45)
[2022-05-03] MEDS: ASPIRIN 81MG CHEW TAB PO SCH (08:32)
[2022-05-03] MEDS ORDERED: ALBUTEROL 0.083% 2.5 MG/3 ML INH IH PRN (11:00)
[2022-05-03] MEDS ORDERED: IPRATROPIUM 0.5 MG/2.5 ML INH IH PRN (11:00)
[2022-05-03] MEDS: HEPARIN 5,000 UNIT VIAL SQ SCH ×2 (11:29→22:51)
[2022-05-03 11:54] VITALS: BP 154/75
[2022-05-03 16:00] VITALS: BP 143/79
[2022-05-03 20:00] VITALS: BP 139/72
[2022-05-03] MEDS: MORPHINE 2 MG SYG IVP PRN (21:34)
[2022-05-03] MEDS: ZOLPIDEM TARTRATE 5 MG TAB PO SCH (22:47)
[2022-05-04] VITALS: BP 157/79
[2022-05-04 04:00] VITALS: BP 164/62
[2022-05-04 07:40] VITALS: BP 157/86
[2022-05-04] MEDS: ZOSYN 3.375GM +NS 50ML IV SCH ×2 (08:53→21:17)
[2022-05-04] MEDS: DOXYCYCLINE HYCLATE 100 MG TABLET PO SCH ×2 (08:54→21:18)
[2022-05-04] MEDS: ASPIRIN 81MG CHEW TAB PO SCH (08:54)
[2022-05-04] MEDS: LORAZEPAM 1 MG TABLET PO SCH ×3 (08:54→21:18)
[2022-05-04] MEDS: SUCRALFATE 1 GM TABLET PO SCH ×3 (08:54→21:17)
[2022-05-04] MEDS: PANTOPRAZOLE 40 MG TAB DR PO SCH (08:54)
[2022-05-04] MEDS: AMLODIPINE 5 MG TAB PO SCH (08:54)
[2022-05-04] MEDS: LISINOPRIL 20 MG TABLET PO SCH (08:54)
[2022-05-04] MEDS ORDERED: CLONIDINE 0.3 MG/ 24 HR PATCH TD SCH (09:00)
[2022-05-04] MEDS: HEPARIN 5,000 UNIT VIAL SQ SCH ×2 (11:30→21:37)
[2022-05-04 11:35] VITALS: BP 145/80
[2022-05-04 15:25] VITALS: BP 164/70
[2022-05-04 20:31] VITALS: BP 164/74
[2022-05-04] MEDS: ZOLPIDEM TARTRATE 5 MG TAB PO SCH (21:18)
[2022-05-05 00:22] VITALS: BP 160/73
[2022-05-05] MEDS: MORPHINE 2 MG SYG IVP PRN (01:20)
[2022-05-05 04:43] LABS: MEAN CORPUSCULAR HEMOGLOBIN 30.2 pg (27.0-33.0); MEAN CORPUSCULAR HGB CONC 33.3 g/dL (32.0-36.0); MEAN CORPUSCULAR VOLUME 90.7 fL (79-99); RED BLOOD CELL COUNT(AUTO) 3.64 MIL/uL (4.50-6.20); RED CELL DISTRIBUTION WIDTH 13.2 % (11.0-15.5); WHITE BLOOD COUNT (AUTO) 5.7 K/uL (4.8-10.8)
[2022-05-05 04:47] VITALS: BP 156/70
[2022-05-05 04:48] LABS: CREATININE 1.6 mg/dL (0.5-1.5); MAGNESIUM 1.5 mg/dL (1.80-2.40); POTASSIUM 4.1 mmol/L (3.5-5.1)
[2022-05-05 08:34] VITALS: BP 170/59
[2022-05-05] MEDS: CLONIDINE 0.3 MG/ 24 HR PATCH TD SCH (09:08)
[2022-05-05] MEDS: ZOSYN 3.375GM +NS 50ML IV SCH (09:08)
[2022-05-05] MEDS: PANTOPRAZOLE 40 MG TAB DR PO SCH (09:09)
[2022-05-05] MEDS: LORAZEPAM 1 MG TABLET PO SCH (09:09)
[2022-05-05] MEDS: SUCRALFATE 1 GM TABLET PO SCH (09:09)
[2022-05-05] MEDS: DOXYCYCLINE HYCLATE 100 MG TABLET PO SCH (09:09)
[2022-05-05] MEDS: ASPIRIN 81MG CHEW TAB PO SCH (09:09)
[2022-05-05] MEDS: AMLODIPINE 5 MG TAB PO SCH (09:09)
[2022-05-05] MEDS: LISINOPRIL 20 MG TABLET PO SCH (09:10)
== END 2022-05-05 11:57 | disposition home or self-care (01) | DRG 871 ==
LOC: EDH 11:41 → EDHIP 14:03 → 2AH 16:09 → 4BH 04-30 11:34
PROVIDERS: ADMIT Internal Medicine Infectious Disease; ATTEND Internal Medicine Infectious Disease
DX: A41.9 Sepsis, unspecified organism (principal); I21.4 Non-ST elevation (NSTEMI) myocardial infarction; N18.6 End stage renal disease; J96.91 Respiratory failure, unspecified with hypoxia; J15.0 Pneumonia due to Klebsiella pneumoniae; M62.82 Rhabdomyolysis; N17.9 Acute kidney failure, unspecified; I12.0 Hypertensive chronic kidney disease with stage 5 chronic kidney disease or end stage renal disease; Z20.822 Contact with and (suspected) exposure to COVID-19; R55 Syncope and collapse; F41.9 Anxiety disorder, unspecified; E87.5 Hyperkalemia; E11.22 Type 2 diabetes mellitus with diabetic chronic kidney disease; F32.A Depression, unspecified; I25.10 Atherosclerotic heart disease of native coronary artery without angina pectoris; Z87.01 Personal history of pneumonia (recurrent); Z82.49 Family history of ischemic heart disease and other diseases of the circulatory system; Z80.3 Family history of malignant neoplasm of breast
CPT/HCPCS: 36415; 70450; 71045; 71250; 80048; 80053; 81001; 82550; 82948; 83735; 83880; 84484; 85025; 85027; 85610; 85730; 87040; 87071; 87077; 87186; 87205; 87635; 87804; 93005; 94640; 96360; 96361; 96372; 99291; G0378; J1644; J2543; J7030

== ENCOUNTER 2023-05-09 09:35 | Emergency (ER) | payer MEDICARE ==
[~2023-05-09] VITALS: Ht 170.2 cm; Wt 81.6 kg
[~2023-05-09 09:35] MED LIST changes: -AMLO-258 PO; +AMLO10TA4 PO; -AMOX1TAB16 PO; +ASCO100031 PO; -AZIT250T PO; -BENZ200C53 PO; -CARI350T26 PO; +CHOL500051 PO; +CLON1PAT41 TD; +DOXY100C5 PO; -ESOM20CA60 PO; +FERR-82 PO; -HYDR-4153 PO; -LACT10SO9 PO; -LEVO250T75 PO; -LISI40TA9 PO; +LORA2ORA5 PO; -LORA2TAB80 PO; -METO-549 PO; -OMEP20CA12 PO; +PANT40TA54 PO; +SODI650T PO; +SUCR1TAB2 PO; +VITA100049 PO; +ZINC220T4 PO
[2023-05-09 10:14] LABS: BASOPHILS # (AUTO) 0.01 K/uL (0.00-0.20); BASOPHILS % (AUTO) 0.1 % (0.0-5.0); EOSINOPHILS # (AUTO) 0.02 K/uL (0.00-0.70); EOSINOPHILS % (AUTO) 0.2 % (0.0-8.0); HEMATOCRIT 34.6 % (42-54); IMMATURE GRANULOCYTE ABSOLUTE 0.05 K/uL (0-1); LYMPHOCYTES # (AUTO) 1.5 K/uL (1.0-4.8); LYMPHOCYTES % (AUTO) 17.3 % (21.0-51.0); MEAN CORPUSCULAR HEMOGLOBIN 30.8 pg (27.0-33.0); MEAN CORPUSCULAR HGB CONC 34.7 g/dL (32.0-36.0); MEAN CORPUSCULAR VOLUME 88.9 fL (79-99); MONOCYTES # (AUTO) 0.4 K/uL (0.1-1.0); MONOCYTES % (AUTO) 4.4 % (3.0-13.0); NEUTROPHILS # (AUTO) 6.7 K/uL (1.8-7.7); NEUTROPHILS % (AUTO) 77.4 % (40.0-77.0); PLATELET COUNT (AUTO) 262 K/uL (130-400); RED BLOOD CELL COUNT(AUTO) 3.89 MIL/uL (4.50-6.20); RED CELL DISTRIBUTION WIDTH 14.1 % (11.0-15.5); WHITE BLOOD COUNT (AUTO) 8.7 K/uL (4.8-10.8)
[2023-05-09 10:26] LABS: CREATININE 1.9 mg/dL (0.5-1.5); POTASSIUM 4.7 mmol/L (3.5-5.1)
[2023-05-09 10:32] LABS: ALBUMIN 3.9 g/dL (3.5-5.0); BILIRUBIN,TOTAL 0.3 mg/dL (0.2-1.0); TOTAL PROTEIN, SERUM 8.6 g/dL (6.0-8.3)
[2023-05-09] MEDS ORDERED: ONDANSETRON 4MG INJ IVP ONE (11:00)
[2023-05-09] MEDS ORDERED: PANTOPRAZOLE 40 MG/VIAL IVP ONE (11:00)
[2023-05-09] MEDS ORDERED: CLONIDINE HCL 0.1 MG TABLET PO ONE (13:00)
[2023-05-09 14:01] LABS: APPEARANCE,URINE CLEAR (CLEAR); BILIRUBIN,URINE NEGATIVE (NEGATIVE); COLOR,URINE YELLOW (YELLOW); GLUCOSE, URINE (UA) NEGATIVE (NEGATIVE); KETONES,URINE NEGATIVE (NEGATIVE); LEUKOCYTE ESTERASE ,URINE NEGATIVE Leu/uL (NEGATIVE); NITRATE,URINE NEGATIVE (NEGATIVE); OCCULT BLOOD,URINE NEGATIVE (NEGATIVE); PROTEIN,URINE 30 mg/dL (NEGATIVE); UROBILINOGEN,URINE 0.2 mg/dL (0.2-1.0)
[2023-05-09 14:02] LABS: ADD UA MICROSCOPIC YES
[2023-05-09 14:06] LABS: MUCUS,URINE RARE LPF (None Seen); RBC,URINE 0-1 /HPF (0-1); WBC,URINE 0-1 /HPF (0-1)
[2023-05-09] MEDS ORDERED: MORPHINE 2 MG SYG IVP ONE (15:00)
[2023-05-09 15:27] LABS: AMPHET/METH SCREEN,URINE NEGATIVE (NEGATIVE); BARBITURATE SCREEN, URINE NEGATIVE (NEGATIVE); BENZODIAZEPINES SCREEN,URINE POSITIVE (NEGATIVE); CANNABINOID SCREEN,URINE NEGATIVE (NEGATIVE); COCAINE SCREEN,URINE NEGATIVE (NEGATIVE); OPIATE SCREEN,URINE POSITIVE (NEGATIVE); PHENCYCLIDINE SCREEN,URINE NEGATIVE (NEGATIVE)
[2023-05-09] MEDS ORDERED: NITROGLYCERIN 1GM OINT 1 INCH/1GM TD ONE (16:30)
[2023-05-09] MEDS ORDERED: ONDA4TAB10 PO (17:24)
[2023-05-09 18:12] VITALS: BP 170/78; PULSE 96; RESP 17; O2SAT 97
== END 2023-05-09 18:14 | disposition home or self-care (01) ==
LOC: EDH 09:35
DX: R10.84 Generalized abdominal pain (principal); R11.10 Vomiting, unspecified; E86.0 Dehydration; I12.9 Hypertensive chronic kidney disease with stage 1 through stage 4 chronic kidney disease, or unspecified chronic kidney disease; N18.9 Chronic kidney disease, unspecified; F41.9 Anxiety disorder, unspecified; Z79.899 Other long term (current) drug therapy; Z98.890 Other specified postprocedural states; Z88.8 Allergy status to other drugs, medicaments and biological substances
CPT/HCPCS: 99285; 74176; 96374; 71045; 96375; 80053; 80305; 83690; 85025; 36415; 93005; 81001; J2270; J2405; C9113

== ENCOUNTER 2023-10-08 06:24 | Inpatient (IN) | payer MEDICARE ==
[~2023-10-08] VITALS: Ht 152.4 cm; Wt 84.0 kg
[~2023-10-08 06:24] MED LIST changes: +ONDA-243 PO; -VITA100049 PO; +VITA100059 PO
[2023-10-08] MEDS: CEFTRIAXONE 1G VIAL IVPB ONE (07:07)
[2023-10-08] MEDS: ACETAMINOPHEN 500 MG TABLET PO ONE (07:07)
[2023-10-08 07:12] LABS: BASOPHILS # (AUTO) 0.02 K/uL (0.00-0.20); BASOPHILS % (AUTO) 0.3 % (0.0-5.0); EOSINOPHILS # (AUTO) 0.13 K/uL (0.00-0.70); EOSINOPHILS % (AUTO) 1.9 % (0.0-8.0); HEMATOCRIT 33.4 % (42-54); IMMATURE GRANULOCYTE ABSOLUTE 0.03 K/uL (0-1); LYMPHOCYTES % (AUTO) 14.8 % (21.0-51.0); MEAN CORPUSCULAR HEMOGLOBIN 31.6 pg (27.0-33.0); MEAN CORPUSCULAR HGB CONC 33.5 g/dL (32.0-36.0); MEAN CORPUSCULAR VOLUME 94.4 fL (79-99); MONOCYTES # (AUTO) 0.5 K/uL (0.1-1.0); MONOCYTES % (AUTO) 7.7 % (3.0-13.0); NEUTROPHILS # (AUTO) 5.1 K/uL (1.8-7.7); NEUTROPHILS % (AUTO) 74.9 % (40.0-77.0); PLATELET COUNT (AUTO) 152 K/uL (130-400); RED BLOOD CELL COUNT(AUTO) 3.54 MIL/uL (4.50-6.20); RED CELL DISTRIBUTION WIDTH 12.7 % (11.0-15.5); WHITE BLOOD COUNT (AUTO) 6.8 K/uL (4.8-10.8)
[2023-10-08 07:19] LABS: CREATININE 2.4 mg/dL (0.5-1.3); POTASSIUM 5.1 mmol/L (3.5-5.1)
[2023-10-08] MEDS ORDERED: ONDANSETRON 4MG INJ IVP ONE (07:30)
[2023-10-08] MEDS: LORAZEPAM 2 MG TABLET PO ONE (08:09)
[2023-10-08 08:54] LABS: PARTIAL THROMBOPLASTIN TIME 25.5 SEC (26.3-35.5); PROTHROMBIN TIME 10.6 SEC (9.6-11.6)
[2023-10-08] MEDS ORDERED: ONDANSETRON 4MG INJ IVP PRN (09:00)
[2023-10-08] MEDS ORDERED: COMPOUND IV MISC 1 EACH IVSOLN MISC PRN (09:30)
[2023-10-08] MEDS: HEPARIN 5,000 UNIT VIAL SQ SCH (09:31)
[2023-10-08] MEDS: MEROPENEM 1 GM in 0.9%NACL 100ML 100 ML IVPB SCH (09:32)
[2023-10-08] MEDS ORDERED: LISI20TA24 PO (09:48)
[2023-10-08 10:05] LABS: APPEARANCE,URINE CLEAR (CLEAR); BILIRUBIN,URINE NEGATIVE (NEGATIVE); COLOR,URINE LIGHT-YELLOW (YELLOW); GLUCOSE, URINE (UA) NEGATIVE (NEGATIVE); KETONES,URINE NEGATIVE (NEGATIVE); LEUKOCYTE ESTERASE ,URINE NEGATIVE Leu/uL (NEGATIVE); NITRATE,URINE NEGATIVE (NEGATIVE); OCCULT BLOOD,URINE NEGATIVE (NEGATIVE); PROTEIN,URINE NEGATIVE (NEGATIVE); RBC,URINE 0-1 /HPF (0-1); SQUAMOUS EPITHELIAL CELL,UR RARE /HPF (0-2); UROBILINOGEN,URINE 0.2 mg/dL (0.2-1.0); WBC,URINE 0-1 /HPF (0-1)
[2023-10-08] MEDS: 0.9%NACL 1000ML 1,000 ML IV SCH (10:59)
[2023-10-08 12:20] VITALS: O2SAT 100
[2023-10-08 12:21] VITALS: BP 127/66; PULSE 78; RESP 16
[2023-10-08] MEDS ORDERED: ONDANSETRON ODT 4MG TAB PO PRN (13:30)
[2023-10-08] MEDS ORDERED: LORAZEPAM 2 MG PO SCH (14:00)
[2023-10-08 15:47] VITALS: TEMP 102.9
[2023-10-08] MEDS: ACETAMINOPHEN 325 MG TAB PO PRN (15:47)
[2023-10-08 15:48] VITALS: BP 109/40; PULSE 85; RESP 16
[2023-10-08] MEDS: HYDROCODONE/ACETAMINOPHEN 10/325 MG TAB PO PRN (16:10)
[2023-10-08] MEDS: SUCRALFATE 1 GM TABLET PO SCH (16:11)
[2023-10-08] MEDS: LORAZEPAM 1 MG TABLET PO PRN (16:11)
[2023-10-08 19:35] VITALS: O2SAT 100
[2023-10-08 20:00] VITALS: BP 115/55; PULSE 75; RESP 18
[2023-10-08] MEDS ORDERED: NON-FORMULARY MEDICATION 1 EACH (Zolpidem Tartrate (Ambien) 10 MG) PO SCH (21:00)
[2023-10-09] VITALS (7 sets, daily range): BP systolic 96–145; BP diastolic 45–68; PULSE 70–85; RESP 16–19; O2SAT 99–100
[2023-10-09] MEDS: PANTOPRAZOLE 40 MG TAB DR PO SCH (00:15)
[2023-10-09] MEDS: LISINOPRIL 20 MG TABLET PO SCH (00:15)
[2023-10-09] MEDS: ZOLPIDEM TARTRATE 5 MG TAB PO SCH (00:50)
[2023-10-09] MEDS: HYDROCODONE/ACETAMINOPHEN 10/325 MG TAB PO PRN (00:50)
[2023-10-09] MEDS ORDERED: ZOLP5TAB2 PO (00:52)
[2023-10-09] MEDS ORDERED: HYDR-4068 PO (00:52)
[2023-10-09 04:17] LABS: BASOPHILS # (AUTO) 0.02 K/uL (0.00-0.20); BASOPHILS % (AUTO) 0.2 % (0.0-5.0); EOSINOPHILS # (AUTO) 0.32 K/uL (0.00-0.70); EOSINOPHILS % (AUTO) 3.8 % (0.0-8.0); IMMATURE GRANULOCYTE ABSOLUTE 0.03 K/uL (0-1); LYMPHOCYTES # (AUTO) 2.2 K/uL (1.0-4.8); LYMPHOCYTES % (AUTO) 26.1 % (21.0-51.0); MEAN CORPUSCULAR HEMOGLOBIN 31.3 pg (27.0-33.0); MEAN CORPUSCULAR HGB CONC 33.3 g/dL (32.0-36.0); MONOCYTES % (AUTO) 11.5 % (3.0-13.0); NEUTROPHILS # (AUTO) 4.8 K/uL (1.8-7.7); PLATELET COUNT (AUTO) 136 K/uL (130-400); RED BLOOD CELL COUNT(AUTO) 3.19 MIL/uL (4.50-6.20); RED CELL DISTRIBUTION WIDTH 12.6 % (11.0-15.5); WHITE BLOOD COUNT (AUTO) 8.3 K/uL (4.8-10.8)
[2023-10-09 05:02] LABS: B-TYPE NATRIURETIC PEPTIDE 247 pg/mL (0-100)
[2023-10-09 05:10] LABS: ALBUMIN 2.8 g/dL (3.5-5.0); BILIRUBIN,TOTAL 0.5 mg/dL (0.2-1.0); MAGNESIUM 2.3 mg/dL (1.80-2.40); POTASSIUM 4.7 mmol/L (3.5-5.1); TOTAL PROTEIN, SERUM 6.7 g/dL (6.0-8.3)
[2023-10-09] MEDS: VITAMIN E MIXED 1000 UNIT PO SCH (09:00)
[2023-10-09] MEDS: ASCORBIC ACID 500 MG TAB PO SCH (09:19)
[2023-10-09] MEDS: FERROUS SULFATE 325 MG TABLET.DR PO SCH (09:19)
[2023-10-09] MEDS: SODIUM BICARBONATE 650 MG TAB PO SCH (09:19)
[2023-10-10] VITALS (7 sets, daily range): BP systolic 117–156; BP diastolic 64–75; PULSE 66–76; RESP 16–19; O2SAT 95–98
[2023-10-10] MEDS: PANTOPRAZOLE 40 MG TAB DR PO SCH (09:00)
[2023-10-10] MEDS: SUCRALFATE 1 GM TABLET PO SCH (09:00)
[2023-10-11] VITALS: BP 164/72; PULSE 65; RESP 19
[2023-10-11 04:00] VITALS: BP 164/80; PULSE 68; RESP 20
[2023-10-11 06:01] LABS: BILIRUBIN,TOTAL 0.3 mg/dL (0.2-1.0); CREATININE 1.4 mg/dL (0.5-1.3); POTASSIUM 4.2 mmol/L (3.5-5.1); TOTAL PROTEIN, SERUM 7.5 g/dL (6.0-8.3)
[2023-10-11 08:00] VITALS: BP 174/83; PULSE 67; RESP 17; O2SAT 96
[2023-10-11 12:00] VITALS: BP 188/64; PULSE 68; RESP 17
== END 2023-10-11 15:05 | disposition home or self-care (01) | DRG 871 ==
LOC: EDH 06:24 → EDHIP 08:44 → 4CH 11:40
PROVIDERS: ADMIT Internal Medicine Infectious Disease; ATTEND Internal Medicine Infectious Disease
DX: A41.9 Sepsis, unspecified organism (principal); J69.0 Pneumonitis due to inhalation of food and vomit; N17.9 Acute kidney failure, unspecified; J44.1 Chronic obstructive pulmonary disease with (acute) exacerbation; J44.0 Chronic obstructive pulmonary disease with (acute) lower respiratory infection; N18.9 Chronic kidney disease, unspecified; I12.9 Hypertensive chronic kidney disease with stage 1 through stage 4 chronic kidney disease, or unspecified chronic kidney disease; F41.9 Anxiety disorder, unspecified; I25.10 Atherosclerotic heart disease of native coronary artery without angina pectoris; K22.2 Esophageal obstruction; F32.A Depression, unspecified; G89.29 Other chronic pain; M54.9 Dorsalgia, unspecified; Z82.49 Family history of ischemic heart disease and other diseases of the circulatory system
CPT/HCPCS: 36415; 71045; 80048; 80053; 81001; 82948; 83605; 83735; 83880; 84145; 84484; 85025; 85610; 85730; 87040; 93005; 96365; G0378; J0696; J1644; J2185

== ENCOUNTER 2023-11-10 04:46 | Inpatient (IN) | payer MEDICARE ==
[~2023-11-10] VITALS: Ht 175.3 cm; Wt 72.6 kg
[~2023-11-10 04:46] MED LIST changes: -AMLO10TA4 PO; -CLON1PAT41 TD; -DOXY100C5 PO; +LISI20TA24 PO; -ZOLP10TA2 PO; +ZOLP5TAB2 PO
[2023-11-10 05:20] LABS: BASOPHILS # (AUTO) 0.03 K/uL (0.00-0.20); BASOPHILS % (AUTO) 0.3 % (0.0-5.0); EOSINOPHILS # (AUTO) 0.71 K/uL (0.00-0.70); EOSINOPHILS % (AUTO) 7.2 % (0.0-8.0); HEMATOCRIT 34.1 % (42-54); IMMATURE GRANULOCYTE ABSOLUTE 0.03 K/uL (0-1); LYMPHOCYTES # (AUTO) 1.4 K/uL (1.0-4.8); LYMPHOCYTES % (AUTO) 13.8 % (21.0-51.0); MEAN CORPUSCULAR HGB CONC 33.4 g/dL (32.0-36.0); MEAN CORPUSCULAR VOLUME 92.7 fL (79-99); MONOCYTES # (AUTO) 0.9 K/uL (0.1-1.0); MONOCYTES % (AUTO) 9.3 % (3.0-13.0); NEUTROPHILS # (AUTO) 6.8 K/uL (1.8-7.7); NEUTROPHILS % (AUTO) 69.1 % (40.0-77.0); PLATELET COUNT (AUTO) 163 K/uL (130-400); RED BLOOD CELL COUNT(AUTO) 3.68 MIL/uL (4.50-6.20); RED CELL DISTRIBUTION WIDTH 12.4 % (11.0-15.5); WHITE BLOOD COUNT (AUTO) 9.8 K/uL (4.8-10.8)
[2023-11-10 05:37] LABS: POTASSIUM 5.5 mmol/L (3.5-5.1)
[2023-11-10] MEDS ORDERED: ONDANSETRON 4MG INJ IVP PRN (06:30)
[2023-11-10] MEDS ORDERED: ZOSYN 3.375GM +NS 50ML IV ONE (06:30)
[2023-11-10] MEDS ORDERED: ACETAMINOPHEN 650 MG SUPPOSITORY RC PRN ×2 (06:30)
[2023-11-10] MEDS: ZOSYN 3.375GM+NS 50ML 50 ML ONE (06:52)
[2023-11-10] MEDS: MEROPENEM 500 MG in 0.9%NACL 100ML IV SCH (06:57)
[2023-11-10] MEDS: MEROPENEM 500 MG VIAL ONE (06:57)
[2023-11-10] MEDS: NACL IV ONE (06:58)
[2023-11-10] MEDS ORDERED: COMPOUND IV MISC 1 EACH IVSOLN MISC PRN (07:00)
[2023-11-10] MEDS: ALBUTEROL 0.083% 2.5 MG/3 ML INH IH ONE (07:56)
[2023-11-10 07:57] VITALS: PULSE 77; RESP 19
[2023-11-10] MEDS: ENOXAPARIN SODIUM 30 MG/0.3 ML SQ SCH (08:20)
[2023-11-10] MEDS: SODIUM ZIRCONIUM CYCLOSILICATE 5 GM POWD.PACK PO ONE (08:24)
[2023-11-10 09:11] LABS: RAPID GROUP A STREP negative (NEGATIVE)
[2023-11-10 09:15] LABS: SARS-CoV-2, RNA, NAAT NEGATIVE SARS CoV-2 (NEGATIVE)
[2023-11-10 09:21] LABS: INFLUENZA TYPE A Negative For Type A (NEGATIVE); INFLUENZA TYPE B Negative For Type B (NEGATIVE)
[2023-11-10 09:44] LABS: APPEARANCE,URINE CLEAR (CLEAR); BILIRUBIN,URINE NEGATIVE (NEGATIVE); COLOR,URINE LIGHT-YELLOW (YELLOW); GLUCOSE, URINE (UA) NEGATIVE (NEGATIVE); KETONES,URINE NEGATIVE (NEGATIVE); LEUKOCYTE ESTERASE ,URINE NEGATIVE Leu/uL (NEGATIVE); NITRATE,URINE NEGATIVE (NEGATIVE); OCCULT BLOOD,URINE NEGATIVE (NEGATIVE); PROTEIN,URINE NEGATIVE (NEGATIVE); UROBILINOGEN,URINE 0.2 mg/dL (0.2-1.0)
[2023-11-10 09:45] LABS: ADD UA MICROSCOPIC NO
[2023-11-10 17:35] VITALS: BP 145/67; PULSE 89; RESP 18
[2023-11-10] MEDS ORDERED: HYDROCODONE/ACETAMINOPHEN 10/325 MG TAB PO PRN (18:00)
[2023-11-10] MEDS ORDERED: ONDANSETRON ODT 4MG TAB PO PRN (18:00)
[2023-11-10 20:00] VITALS: BP 119/53; PULSE 66; RESP 18
[2023-11-10 20:46] VITALS: O2SAT 98
[2023-11-10] MEDS: SUCRALFATE 1 GM TABLET PO SCH (20:58)
[2023-11-10] MEDS: LISINOPRIL 20 MG TABLET PO SCH (20:58)
[2023-11-10] MEDS: ZOLPIDEM TARTRATE 5 MG TAB PO SCH (20:59)
[2023-11-10] MEDS: PANTOPRAZOLE 40 MG TAB DR PO SCH (20:59)
[2023-11-10] MEDS: LORAZEPAM 2 MG TABLET PO SCH (20:59)
[2023-11-10] MEDS: MEROPENEM 500 MG in 0.9%NACL 100ML 100 ML IV SCH (21:05)
[2023-11-11] VITALS (27 sets, daily range): BP systolic 108–170; BP diastolic 49–110; PULSE 66–92; RESP 16–24; O2SAT 99
[2023-11-11 04:58] LABS: HEMATOCRIT 33.7 % (42-54); MEAN CORPUSCULAR HEMOGLOBIN 30.3 pg (27.0-33.0); MEAN CORPUSCULAR HGB CONC 32.9 g/dL (32.0-36.0); MEAN CORPUSCULAR VOLUME 92.1 fL (79-99); RED BLOOD CELL COUNT(AUTO) 3.66 MIL/uL (4.50-6.20); RED CELL DISTRIBUTION WIDTH 12.3 % (11.0-15.5); WHITE BLOOD COUNT (AUTO) 5.3 K/uL (4.8-10.8)
[2023-11-11 05:07] LABS: CREATININE 2.1 mg/dL (0.5-1.3); MAGNESIUM 1.9 mg/dL (1.80-2.40); POTASSIUM 4.1 mmol/L (3.5-5.1)
[2023-11-11] MEDS: (Cholecalciferol (Vitamin D3) (Vitamin D3) 125 MCG) PO SCH (09:00)
[2023-11-11] MEDS: SODIUM BICARBONATE 650 MG TAB PO SCH (09:00)
[2023-11-11] MEDS: VITAMIN E MIXED 1000 UNIT PO SCH (09:00)
[2023-11-11] MEDS: (Zinc Sulfate (Zinc) 50 MG) PO SCH (09:00)
[2023-11-11] MEDS: FERROUS SULFATE 325 MG TABLET.DR PO SCH (09:00)
[2023-11-11] MEDS: ASCORBIC ACID 500 MG TAB PO SCH (09:00)
[2023-11-11] MEDS ORDERED: PROPOFOL 10 MG/ML 20ML VIAL IV ONE ×2 (12:54→13:13)
[2023-11-11] MEDS ORDERED: LIDOCAINE PF 100MG/5ML (2%) SYRINGE 5ML ONE (12:54)
[2023-11-11] MEDS ORDERED: GLYCOPYRROLATE 0.2 MG/ML 5 ML VIAL ONE (12:56)
[2023-11-11] MEDS: MORPHINE 2 MG SYG IVP PRN (18:18)
[2023-11-12] VITALS (8 sets, daily range): BP systolic 124–162; BP diastolic 59–78; PULSE 60–86; RESP 17–20; O2SAT 97
[2023-11-12 05:23] LABS: HEMATOCRIT 31.1 % (42-54); MEAN CORPUSCULAR HEMOGLOBIN 30.5 pg (27.0-33.0); MEAN CORPUSCULAR HGB CONC 33.8 g/dL (32.0-36.0); MEAN CORPUSCULAR VOLUME 90.4 fL (79-99); RED BLOOD CELL COUNT(AUTO) 3.44 MIL/uL (4.50-6.20); RED CELL DISTRIBUTION WIDTH 11.9 % (11.0-15.5)
[2023-11-12 05:40] LABS: CREATININE 1.8 mg/dL (0.5-1.3); MAGNESIUM 1.7 mg/dL (1.80-2.40); POTASSIUM 4.6 mmol/L (3.5-5.1)
[2023-11-12] MEDS: MAGNESIUM 2GM PREMIX 50ML 50 ML IV ONE (08:28)
[2023-11-12 13:39] LABS: INR 1.06 (0.85-1.15); PROTHROMBIN TIME 11.4 SEC (9.6-11.6)
[2023-11-12] MEDS: AMLODIPINE 5 MG TAB PO PRN (22:17)
[2023-11-12] MEDS: SODIUM BICARBONATE 650 MG TAB PO SCH (22:17)
[2023-11-13] VITALS (8 sets, daily range): BP systolic 126–170; BP diastolic 67–75; PULSE 57–74; RESP 18–20; O2SAT 95–97
[2023-11-13] MEDS ORDERED: CLON1PAT41 TD (16:31)
[2023-11-13] MEDS: CLONIDINE 0.3 MG/ 24 HR PATCH TD SCH (17:00)
[2023-11-13] MEDS: 0.9%NACL 10ML VIAL IV SCH (20:46)
[2023-11-14 04:29] VITALS: BP 146/66; PULSE 65; RESP 18
[2023-11-14 05:43] LABS: HEMATOCRIT 32.8 % (42-54); MEAN CORPUSCULAR HEMOGLOBIN 30.7 pg (27.0-33.0); MEAN CORPUSCULAR HGB CONC 34.1 g/dL (32.0-36.0); MEAN CORPUSCULAR VOLUME 89.9 fL (79-99); RED BLOOD CELL COUNT(AUTO) 3.65 MIL/uL (4.50-6.20); WHITE BLOOD COUNT (AUTO) 6.7 K/uL (4.8-10.8)
[2023-11-14 05:56] LABS: CREATININE 1.5 mg/dL (0.5-1.3); MAGNESIUM 1.4 mg/dL (1.80-2.40); POTASSIUM 3.9 mmol/L (3.5-5.1)
[2023-11-14 07:45] VITALS: O2SAT 95
[2023-11-14 08:20] VITALS: BP 114/66; PULSE 58; RESP 17
[2023-11-14 11:32] VITALS: BP 176/95; PULSE 67; RESP 17
[2023-11-14] MEDS ORDERED: MAGNESIUM 4GM PREMIX 100ML 100 ML IV SCH (12:30)
[2023-11-14] MEDS ORDERED: MAGNESIUM 2GM PREMIX 50ML 50 ML IV NR (12:30)
== END 2023-11-14 15:30 | disposition home or self-care (01) | DRG 871 ==
LOC: EDH 04:46 → EDHIP 06:29 → 3DH 17:25
PROVIDERS: ADMIT Internal Medicine Infectious Disease; ATTEND Internal Medicine Infectious Disease
PROC: 0DB58ZX Excision of Esophagus, Via Natural or Artificial Opening Endoscopic, Diagnostic (ICD-10-PCS; principal; 2023-11-11)
PROC: 0D758ZZ Dilation of Esophagus, Via Natural or Artificial Opening Endoscopic (ICD-10-PCS; 2023-11-11)
PROC: 05HA33Z Insertion of Infusion Device into Left Brachial Vein, Percutaneous Approach (ICD-10-PCS; 2023-11-11)
DX: A41.50 Gram-negative sepsis, unspecified (principal); J15.69 Pneumonia due to other Gram-negative bacteria; J69.0 Pneumonitis due to inhalation of food and vomit; N17.9 Acute kidney failure, unspecified; K22.10 Ulcer of esophagus without bleeding; E87.20 Acidosis, unspecified; N18.30 Chronic kidney disease, stage 3 unspecified; K21.9 Gastro-esophageal reflux disease without esophagitis; K22.2 Esophageal obstruction; D64.9 Anemia, unspecified; E87.5 Hyperkalemia; F32.A Depression, unspecified; I25.10 Atherosclerotic heart disease of native coronary artery without angina pectoris; G89.29 Other chronic pain; F41.1 Generalized anxiety disorder; K44.9 Diaphragmatic hernia without obstruction or gangrene; I12.9 Hypertensive chronic kidney disease with stage 1 through stage 4 chronic kidney disease, or unspecified chronic kidney disease; K74.60 Unspecified cirrhosis of liver; K76.0 Fatty (change of) liver, not elsewhere classified; Z80.1 Family history of malignant neoplasm of trachea, bronchus and lung; Z80.3 Family history of malignant neoplasm of breast; Z82.49 Family history of ischemic heart disease and other diseases of the circulatory system; Z83.3 Family history of diabetes mellitus; Z87.11 Personal history of peptic ulcer disease
CPT/HCPCS: 36415; 43239; 71045; 80048; 81003; 82550; 83605; 83735; 84484; 85025; 85027; 85610; 87040; 87071; 87086; 87186; 87205; 87635; 87804; 87880; 93005; 94640; 96365; C1894; G0378; J1650; J2001; J2185; J2270; J2543; J2704; J3475; J3490; J7030; A4215; A4216; A4223; A4620; A4657; C1726; C1750

== ENCOUNTER 2023-12-25 11:26 | Inpatient (IN) | payer MEDICARE ==
[2023-12-25] VITALS (7 sets, daily range): BP systolic 96–110; BP diastolic 45–53; PULSE 65–87; RESP 16–19; TEMP 98–100.2; O2SAT 93–98
[~2023-12-25] VITALS: Ht 170.2 cm; Wt 75.5 kg
[~2023-12-25 11:26] MED LIST changes: +CLON1PAT41 TD
[2023-12-25 12:24] LABS: BASOPHILS # (AUTO) 0.02 K/uL (0.00-0.20); BASOPHILS % (AUTO) 0.2 % (0.0-5.0); EOSINOPHILS # (AUTO) 0.18 K/uL (0.00-0.70); EOSINOPHILS % (AUTO) 2.1 % (0.0-8.0); HEMATOCRIT 32.3 % (42-54); IMMATURE GRANULOCYTE ABSOLUTE 0.01 K/uL (0-1); LYMPHOCYTES % (AUTO) 12.1 % (21.0-51.0); MEAN CORPUSCULAR HGB CONC 32.2 g/dL (32.0-36.0); MEAN CORPUSCULAR VOLUME 93.1 fL (79-99); MONOCYTES # (AUTO) 0.6 K/uL (0.1-1.0); MONOCYTES % (AUTO) 7.1 % (3.0-13.0); NEUTROPHILS # (AUTO) 6.6 K/uL (1.8-7.7); NEUTROPHILS % (AUTO) 78.4 % (40.0-77.0); PLATELET COUNT (AUTO) 186 K/uL (130-400); RED BLOOD CELL COUNT(AUTO) 3.47 MIL/uL (4.50-6.20); RED CELL DISTRIBUTION WIDTH 13.3 % (11.0-15.5); WHITE BLOOD COUNT (AUTO) 8.4 K/uL (4.8-10.8)
[2023-12-25 12:40] LABS: ALBUMIN 3.3 g/dL (3.5-5.0); BILIRUBIN,TOTAL 0.5 mg/dL (0.2-1.0); CREATININE 3.6 mg/dL (0.5-1.3); POTASSIUM 4.6 mmol/L (3.5-5.1); TOTAL PROTEIN, SERUM 8.2 g/dL (6.0-8.3)
[2023-12-25 12:59] LABS: SARS-CoV-2, RNA, NAAT NEGATIVE SARS CoV-2 (NEGATIVE)
[2023-12-25] MEDS ORDERED: acetaMINOPHEN 325 MG TAB PO PRN ×2 (13:00→17:30)
[2023-12-25] MEDS ORDERED: ONDANSETRON 4MG INJ IVP PRN (13:00)
[2023-12-25 13:05] LABS: INFLUENZA TYPE A Negative For Type A (NEGATIVE); INFLUENZA TYPE B Negative For Type B (NEGATIVE)
[2023-12-25] MEDS ORDERED: MEROPENEM 500 MG VIAL IVPB SCH (13:30)
[2023-12-25] MEDS ORDERED: COMPOUND IV MISC 1 EACH IVSOLN MISC PRN (13:30)
[2023-12-25] MEDS: LORazepam 1 MG TABLET PO ONE (13:34)
[2023-12-25] MEDS: MEROPENEM 500 MG in 0.9%NACL 100ML 100 ML IV SCH (13:35)
[2023-12-25] MEDS: 0.9%NACL 1000ML 1,983 ML IV ONE (13:36)
[2023-12-25] MEDS: acetaMINOPHEN 500 MG TABLET PO ONE (13:36)
[2023-12-25] MEDS: IpraTROPium/alBUTERol SULFATE 3 ML SOLUTION IH ONE (14:01)
[2023-12-25] MEDS: SODIUM CHLORIDE 3% FOR INHALATION 4 ML/AMP VIAL.NEB IH ONE (14:01)
[2023-12-25] MEDS ORDERED: LORA2ORA5 PO (14:02)
[2023-12-25] MEDS ORDERED: ALBU90AE3 IH (14:03)
[2023-12-25] MEDS ORDERED: ACET-2123 PO (14:03)
[2023-12-25] MEDS: cefTAZidime PENTAHYDRATE 2 GM/VIAL IVPB ONE (16:48)
[2023-12-25] MEDS: 0.9%NACL 1000ML 1,000 ML IV SCH (16:48)
[2023-12-25] MEDS ORDERED: AMLO-258 PO (17:03)
[2023-12-25] MEDS ORDERED: VITA-395 PO (17:03)
[2023-12-25] MEDS: HEParin 5,000 UNIT VIAL SQ SCH (17:05)
[2023-12-25] MEDS: IpraTROPium/alBUTERol SULFATE 3 ML SOLUTION IH SCH (18:55)
[2023-12-25 20:18] LABS: APPEARANCE,URINE CLEAR (CLEAR); BILIRUBIN,URINE NEGATIVE (NEGATIVE); COLOR,URINE YELLOW (YELLOW); GLUCOSE, URINE (UA) NEGATIVE (NEGATIVE); KETONES,URINE NEGATIVE (NEGATIVE); LEUKOCYTE ESTERASE ,URINE NEGATIVE Leu/uL (NEGATIVE); NITRATE,URINE NEGATIVE (NEGATIVE); PROTEIN,URINE 20 mg/dL (NEGATIVE); UROBILINOGEN,URINE 0.2 mg/dL (0.2-1.0)
[2023-12-25 20:23] LABS: ADD UA MICROSCOPIC YES
[2023-12-25 20:24] LABS: AMPHET/METH SCREEN,URINE NEGATIVE (NEGATIVE); BARBITURATE SCREEN, URINE NEGATIVE (NEGATIVE); BENZODIAZEPINES SCREEN,URINE POSITIVE (NEGATIVE); CANNABINOID SCREEN,URINE NEGATIVE (NEGATIVE); COCAINE SCREEN,URINE NEGATIVE (NEGATIVE); OPIATE SCREEN,URINE POSITIVE (NEGATIVE); PHENCYCLIDINE SCREEN,URINE NEGATIVE (NEGATIVE)
[2023-12-25 20:25] LABS: MUCUS,URINE RARE LPF (None Seen); RBC,URINE 0-1 /HPF (0-1)
[2023-12-25] MEDS: PANTOPRAZOLE 40 MG TAB DR PO SCH (20:44)
[2023-12-25] MEDS: SUCRALFATE 1 GM TABLET PO SCH (20:44)
[2023-12-25] MEDS: ZOLPidem TARTrate 5 MG TAB PO SCH (20:44)
[2023-12-26] VITALS (15 sets, daily range): BP systolic 102–129; BP diastolic 46–67; PULSE 69–77; RESP 17–20; TEMP 97.2–98.8; O2SAT 93–96
[2023-12-26] MEDS: LORazepam 2 MG TABLET PO PRN (00:45)
[2023-12-26 05:25] LABS: BASOPHILS # (AUTO) 0.01 K/uL (0.00-0.20); BASOPHILS % (AUTO) 0.2 % (0.0-5.0); HEMATOCRIT 28.2 % (42-54); IMMATURE GRANULOCYTE ABSOLUTE 0.02 K/uL (0-1); LYMPHOCYTES # (AUTO) 1.2 K/uL (1.0-4.8); LYMPHOCYTES % (AUTO) 24.6 % (21.0-51.0); MEAN CORPUSCULAR HGB CONC 31.2 g/dL (32.0-36.0); MEAN CORPUSCULAR VOLUME 96.2 fL (79-99); MONOCYTES # (AUTO) 0.5 K/uL (0.1-1.0); MONOCYTES % (AUTO) 10.6 % (3.0-13.0); NEUTROPHILS # (AUTO) 2.9 K/uL (1.8-7.7); NEUTROPHILS % (AUTO) 58.2 % (40.0-77.0); PLATELET COUNT (AUTO) 138 K/uL (130-400); RED BLOOD CELL COUNT(AUTO) 2.93 MIL/uL (4.50-6.20); RED CELL DISTRIBUTION WIDTH 13.4 % (11.0-15.5)
[2023-12-26 05:49] LABS: CREATININE 2.6 mg/dL (0.5-1.3); MAGNESIUM 2.5 mg/dL (1.80-2.40); POTASSIUM 4.4 mmol/L (3.5-5.1)
[2023-12-26] MEDS: SODIUM BICARBONATE 650 MG TAB PO SCH (09:55)
[2023-12-26] MEDS: amLODIPine 5 MG TAB PO SCH (13:00)
[2023-12-26 13:31] LABS: CREATININE,URINE RANDOM 156.28 mg/dL (30-135)
[2023-12-26] MEDS: HYDROcodone/acetaMINOPHEN 10/325 MG TAB PO PRN (15:13)
[2023-12-27] VITALS (12 sets, daily range): BP systolic 130–153; BP diastolic 56–79; PULSE 70–80; RESP 16–19; TEMP 97.8–98.4; O2SAT 92–96
[2023-12-27 05:38] LABS: HEMATOCRIT 29.1 % (42-54); MEAN CORPUSCULAR HEMOGLOBIN 30.6 pg (27.0-33.0); MEAN CORPUSCULAR HGB CONC 32.6 g/dL (32.0-36.0); MEAN CORPUSCULAR VOLUME 93.9 fL (79-99); RED BLOOD CELL COUNT(AUTO) 3.1 MIL/uL (4.50-6.20); RED CELL DISTRIBUTION WIDTH 13.3 % (11.0-15.5); WHITE BLOOD COUNT (AUTO) 5.1 K/uL (4.8-10.8)
[2023-12-27 05:51] LABS: CREATININE 1.9 mg/dL (0.5-1.3); MAGNESIUM 2.1 mg/dL (1.80-2.40); POTASSIUM 4.1 mmol/L (3.5-5.1)
[2023-12-27 16:02] LABS: INR 0.96 (0.85-1.15); PROTHROMBIN TIME 10.4 SEC (9.6-11.6)
[2023-12-27 16:04] LABS: PARTIAL THROMBOPLASTIN TIME 28.6 SEC (26.3-35.5)
[2023-12-28] VITALS (23 sets, daily range): BP systolic 127–155; BP diastolic 61–77; PULSE 60–78; RESP 14–19; TEMP 97–99; O2SAT 92–96
[2023-12-28 05:20] LABS: HEMATOCRIT 29.8 % (42-54); MEAN CORPUSCULAR HEMOGLOBIN 29.8 pg (27.0-33.0); MEAN CORPUSCULAR HGB CONC 32.2 g/dL (32.0-36.0); MEAN CORPUSCULAR VOLUME 92.5 fL (79-99); RED BLOOD CELL COUNT(AUTO) 3.22 MIL/uL (4.50-6.20); RED CELL DISTRIBUTION WIDTH 13.2 % (11.0-15.5); WHITE BLOOD COUNT (AUTO) 5.4 K/uL (4.8-10.8)
[2023-12-28 05:43] LABS: CREATININE 1.6 mg/dL (0.5-1.3); MAGNESIUM 1.8 mg/dL (1.80-2.40); POTASSIUM 4.2 mmol/L (3.5-5.1)
[2023-12-28] MEDS ORDERED: proPOFol 10 MG/ML 20ML VIAL IV ONE (13:51)
[2023-12-28] MEDS ORDERED: LIDOCAINE PF 100MG/5ML (2%) SYRINGE 5ML ONE (13:51)
[2023-12-28] MEDS: PANTOPRAZOLE 40 MG TAB DR PO SCH (22:11)
[2023-12-29] VITALS (13 sets, daily range): BP systolic 128–152; BP diastolic 62–74; PULSE 62–80; RESP 13–19; TEMP 98.3–98.7; O2SAT 16–95
[2023-12-29 05:17] LABS: HEMATOCRIT 32.2 % (42-54); MEAN CORPUSCULAR HEMOGLOBIN 30.1 pg (27.0-33.0); MEAN CORPUSCULAR HGB CONC 32.6 g/dL (32.0-36.0); MEAN CORPUSCULAR VOLUME 92.3 fL (79-99); RED BLOOD CELL COUNT(AUTO) 3.49 MIL/uL (4.50-6.20); RED CELL DISTRIBUTION WIDTH 13.2 % (11.0-15.5); WHITE BLOOD COUNT (AUTO) 4.4 K/uL (4.8-10.8)
[2023-12-29 05:45] LABS: CREATININE 1.3 mg/dL (0.5-1.3); MAGNESIUM 1.6 mg/dL (1.80-2.40); POTASSIUM 3.7 mmol/L (3.5-5.1)
[2023-12-29] MEDS ORDERED: MAGNESIUM 4GM PREMIX 100ML IV ONE (14:00)
[2023-12-29] MEDS: MAGNESIUM 4GM PREMIX 100ML 100 ML IV ONE (16:43)
[2023-12-30] VITALS (14 sets, daily range): BP systolic 135–165; BP diastolic 70–81; PULSE 67–77; RESP 18–19; TEMP 98–98.8; O2SAT 93–97
[2023-12-30 05:26] LABS: HEMATOCRIT 35.4 % (42-54); MEAN CORPUSCULAR HEMOGLOBIN 29.6 pg (27.0-33.0); MEAN CORPUSCULAR HGB CONC 32.5 g/dL (32.0-36.0); MEAN CORPUSCULAR VOLUME 91.2 fL (79-99); RED BLOOD CELL COUNT(AUTO) 3.88 MIL/uL (4.50-6.20); RED CELL DISTRIBUTION WIDTH 13.1 % (11.0-15.5); WHITE BLOOD COUNT (AUTO) 4.7 K/uL (4.8-10.8)
[2023-12-30 05:44] LABS: CREATININE 1.5 mg/dL (0.5-1.3); MAGNESIUM 1.8 mg/dL (1.80-2.40)
[2023-12-31] VITALS (11 sets, daily range): BP systolic 143–158; BP diastolic 66–77; PULSE 60–79; RESP 16–19; TEMP 97.9–98.7; O2SAT 95–99
[2023-12-31 05:21] LABS: HEMATOCRIT 33.4 % (42-54); MEAN CORPUSCULAR HEMOGLOBIN 30.1 pg (27.0-33.0); MEAN CORPUSCULAR HGB CONC 32.6 g/dL (32.0-36.0); MEAN CORPUSCULAR VOLUME 92.3 fL (79-99); RED BLOOD CELL COUNT(AUTO) 3.62 MIL/uL (4.50-6.20); RED CELL DISTRIBUTION WIDTH 13.1 % (11.0-15.5); WHITE BLOOD COUNT (AUTO) 5.7 K/uL (4.8-10.8)
[2023-12-31 05:35] LABS: CREATININE 1.5 mg/dL (0.5-1.3); MAGNESIUM 1.7 mg/dL (1.80-2.40); POTASSIUM 4.1 mmol/L (3.5-5.1)
== END 2023-12-31 17:25 | disposition home or self-care (01) | DRG 853 ==
LOC: EDH 11:26 → EDHIP 12:56 → 3DH 14:32
PROVIDERS: ADMIT Internal Medicine Infectious Disease; ATTEND Internal Medicine Infectious Disease
PROC: 05HB33Z Insertion of Infusion Device into Right Basilic Vein, Percutaneous Approach (ICD-10-PCS; 2023-12-25)
PROC: 0D938ZZ Drainage of Lower Esophagus, Via Natural or Artificial Opening Endoscopic (ICD-10-PCS; principal; 2023-12-28)
PROC: B54MZZA Ultrasonography of Right Upper Extremity Veins, Guidance (ICD-10-PCS; 2023-12-28)
DX: A41.9 Sepsis, unspecified organism (principal); J69.0 Pneumonitis due to inhalation of food and vomit; J96.01 Acute respiratory failure with hypoxia; N17.9 Acute kidney failure, unspecified; F05 Delirium due to known physiological condition; Z20.822 Contact with and (suspected) exposure to COVID-19; I12.9 Hypertensive chronic kidney disease with stage 1 through stage 4 chronic kidney disease, or unspecified chronic kidney disease; G89.29 Other chronic pain; M54.9 Dorsalgia, unspecified; N18.30 Chronic kidney disease, stage 3 unspecified; E86.9 Volume depletion, unspecified; E78.5 Hyperlipidemia, unspecified; G47.00 Insomnia, unspecified; J44.9 Chronic obstructive pulmonary disease, unspecified; K21.9 Gastro-esophageal reflux disease without esophagitis; K22.0 Achalasia of cardia; F41.1 Generalized anxiety disorder; K29.00 Acute gastritis without bleeding; K22.70 Barrett's esophagus without dysplasia; Z88.8 Allergy status to other drugs, medicaments and biological substances; Z82.49 Family history of ischemic heart disease and other diseases of the circulatory system; Z83.3 Family history of diabetes mellitus; Z87.19 Personal history of other diseases of the digestive system; W18.39XA Other fall on same level, initial encounter; Y93.89 Activity, other specified; Y92.098 Other place in other non-institutional residence as the place of occurrence of the external cause; Y99.8 Other external cause status
CPT/HCPCS: 36415; 43235; 71045; 71250; 73501; 80048; 80053; 80305; 81001; 82570; 83605; 83735; 83880; 84300; 84484; 85025; 85027; 85610; 85730; 87040; 87071; 87086; 87186; 87205; 87635; 87804; 93005; 94640; 94664; A4606; C1894; G0378; J0713; J1644; J2001; J2185; J2704; J3475; J7030; A4215; A4620; A4657; C1750; J3490

== ENCOUNTER 2024-01-26 09:50 | Emergency (ER) | payer MEDICARE ==
[~2024-01-26] VITALS: Ht 170.2 cm; Wt 72.6 kg
[~2024-01-26 09:50] MED LIST changes: +ACET-2123 PO; +ALBU90AE3 IH; +AMLO-258 PO; -ASCO100031 PO; -CHOL500051 PO; -FERR-82 PO; -LISI20TA24 PO; -ONDA-243 PO; +VITA-395 PO; -VITA100059 PO; -ZINC220T4 PO
[2024-01-26 10:33] LABS: BASOPHILS # (AUTO) 0.04 K/uL (0.00-0.20); BASOPHILS % (AUTO) 0.7 % (0.0-5.0); EOSINOPHILS # (AUTO) 0.74 K/uL (0.00-0.70); EOSINOPHILS % (AUTO) 13.1 % (0.0-8.0); HEMATOCRIT 35.9 % (42-54); IMMATURE GRANULOCYTE ABSOLUTE 0.04 K/uL (0-1); LYMPHOCYTES % (AUTO) 34.6 % (21.0-51.0); MEAN CORPUSCULAR HEMOGLOBIN 29.8 pg (27.0-33.0); MEAN CORPUSCULAR HGB CONC 33.1 g/dL (32.0-36.0); MEAN CORPUSCULAR VOLUME 89.8 fL (79-99); MONOCYTES # (AUTO) 0.6 K/uL (0.1-1.0); MONOCYTES % (AUTO) 10.9 % (3.0-13.0); NEUTROPHILS # (AUTO) 2.3 K/uL (1.8-7.7); PLATELET COUNT (AUTO) 214 K/uL (130-400); RED CELL DISTRIBUTION WIDTH 13.2 % (11.0-15.5); WHITE BLOOD COUNT (AUTO) 5.7 K/uL (4.8-10.8)
[2024-01-26 10:44] LABS: CREATININE 1.8 mg/dL (0.5-1.3); POTASSIUM 4.3 mmol/L (3.5-5.1)
[2024-01-26 10:49] LABS: ALBUMIN 3.5 g/dL (3.5-5.0); BILIRUBIN,TOTAL 0.3 mg/dL (0.2-1.0); TOTAL PROTEIN, SERUM 8.3 g/dL (6.0-8.3)
[2024-01-26] MEDS: ALBUTEROL 0.083% 2.5 MG/3 ML INH IH ONE (10:59)
[2024-01-26 11:01] VITALS: PULSE 70; RESP 21
[2024-01-26 13:10] VITALS: BP 136/75; PULSE 70; RESP 21; TEMP 98.4; O2SAT 96
[2024-01-26] MEDS ORDERED: ALBUHFA IH (13:15)
[2024-01-26] MEDS ORDERED: BENZ-39 PO (13:15)
[2024-01-26] MEDS ORDERED: CLAR-59 PO (13:15)
[2024-01-26 13:33] LABS: APPEARANCE,URINE CLEAR (CLEAR); BILIRUBIN,URINE NEGATIVE (NEGATIVE); COLOR,URINE LIGHT-YELLOW (YELLOW); GLUCOSE, URINE (UA) NEGATIVE (NEGATIVE); KETONES,URINE NEGATIVE (NEGATIVE); LEUKOCYTE ESTERASE ,URINE NEGATIVE Leu/uL (NEGATIVE); NITRATE,URINE NEGATIVE (NEGATIVE); OCCULT BLOOD,URINE NEGATIVE (NEGATIVE); PH,URINE 5.5 (5.0-8.0); PROTEIN,URINE NEGATIVE (NEGATIVE); UROBILINOGEN,URINE 0.2 mg/dL (0.2-1.0)
[2024-01-26 13:50] LABS: ADD UA MICROSCOPIC NO
== END 2024-01-26 13:59 | disposition home or self-care (01) ==
LOC: EDH 09:50
DX: J20.8 Acute bronchitis due to other specified organisms (principal); B96.89 Other specified bacterial agents as the cause of diseases classified elsewhere; R05.9 Cough, unspecified; E78.00 Pure hypercholesterolemia, unspecified; I12.9 Hypertensive chronic kidney disease with stage 1 through stage 4 chronic kidney disease, or unspecified chronic kidney disease; N18.9 Chronic kidney disease, unspecified; Z79.899 Other long term (current) drug therapy
CPT/HCPCS: 36415; 71045; 80053; 81003; 83690; 85025; 93005; 94640

== ENCOUNTER 2024-10-03 10:00 | Emergency (ER) | payer OTHER, MEDICARE ==
[~2024-10-03] VITALS: Ht 170.2 cm; Wt 70.3 kg
[~2024-10-03 10:00] MED LIST changes: -ACET-2123 PO; -ALBU90AE3 IH; +FLUT1BLS3 PO; +LISI10TA24 PO; +LISI20TA24 PO; -LORA2ORA5 PO; +LORA2TAB80 PO; +NALO4SPR22 EN; -VITA-395 PO; +ZOLP-685 PO; -ZOLP5TAB2 PO
[2024-10-03 10:17] VITALS: BP 188/87; PULSE 125; RESP 22; TEMP 103.3
--- NOTE | 2024-10-03 10:30 | NUR ---
EKG NOT DONE PT REFUSED LEFT AMA
--- NOTE | 2024-10-03 10:40 | NUR ---
PT IS WANTING TO LEAVE AMA. AOX3.
[2024-10-03 10:42] VITALS: TEMP 103.3
[2024-10-03] MEDS: acetaMINOPHEN 325 MG TAB PO STA (10:42)
[2024-10-03] MEDS: 0.9%NACL 1000ML 1,000 ML IV STA (10:45)
--- NOTE | 2024-10-03 10:45 | NUR ---
PT IS WANTING TO LEAVE AMA. REFUSING CHEST XRAY WANTS TO LEAVE. AFTER MULTIPLE ATTEMPTS, EXPLAINED POSSIBLE RISKS EVEN LEAVING AMA. VERBALIZED UNDERSTANDING. SIGNATURE OBTAINED. PROVIDER AWARE
--- NOTE | 2024-10-03 10:45 | NUR ---
ATTEMPT 1 CALLED [phone] SON NO ANSWER
[2024-10-03 10:52] LABS: RAPID GROUP A STREP negative (NEGATIVE)
[2024-10-03 10:58] LABS: BASOPHILS # (AUTO) 0.02 K/uL (0.00-0.20); BASOPHILS % (AUTO) 0.3 % (0.0-5.0); EOSINOPHILS # (AUTO) 0.23 K/uL (0.00-0.70); EOSINOPHILS % (AUTO) 3.4 % (0.0-8.0); HEMATOCRIT 39.9 % (42-54); IMMATURE GRANULOCYTE ABSOLUTE 0.03 K/uL (0-1); LYMPHOCYTES # (AUTO) 1.5 K/uL (1.0-4.8); LYMPHOCYTES % (AUTO) 21.9 % (21.0-51.0); MEAN CORPUSCULAR HEMOGLOBIN 29.8 pg (27.0-33.0); MEAN CORPUSCULAR HGB CONC 32.6 g/dL (32.0-36.0); MEAN CORPUSCULAR VOLUME 91.5 fL (79-99); MONOCYTES # (AUTO) 0.4 K/uL (0.1-1.0); MONOCYTES % (AUTO) 6.6 % (3.0-13.0); NEUTROPHILS # (AUTO) 4.5 K/uL (1.8-7.7); NEUTROPHILS % (AUTO) 67.4 % (40.0-77.0); PLATELET COUNT (AUTO) 187 K/uL (130-400); RED BLOOD CELL COUNT(AUTO) 4.36 MIL/uL (4.50-6.20); RED CELL DISTRIBUTION WIDTH 15.9 % (11.0-15.5); WHITE BLOOD COUNT (AUTO) 6.7 K/uL (4.8-10.8)
--- NOTE | 2024-10-03 10:58 | NUR ---
ATTEMPT #2 CALLED [phone] NO ANSWER LEFT VOICE MESSAGE
--- NOTE | 2024-10-03 10:59 | ERN ---
ED Note History of Present Illness Stated Complaint: COUGH, DIZZY, BODY ACHES Chief Complaint: Flu Symptoms Time Seen by MD: 10:09 Time Seen by Midlevel: 10:11 Dictation: 74-year-old male with a history of hypertension coming in with complaints of flu-like symptoms, cough, congestion and fever. Patient states it started today. Denies having any chest pain, chest discomfort, headache. Allergies: Coded Allergies: trazodone (Unverified Allergy, Mild, DIZZINESS, 07/19/20) AMS Home Meds Reported Medications Lorazepam (Ativan) 2 Mg Tablet, 2 MG PO Q8HRS, TAB 05/11/24 Lisinopril (Lisinopril) 20 Mg Tablet, 1 TAB PO DAILY for 30 Days, #30 TAB 0 Refills 05/11/24 Sodium Bicarbonate (Sodium Bicarbonate) 650 Mg Tablet, 1 TAB PO DAILY for indigestion for 30 Days, #60 TAB 0 Refills 05/01/24 Sucralfate (Sucralfate) 1 Gram Tablet, 1 TAB PO QID for 30 Days, #120 TAB 0 Refills 05/01/24 Lorazepam (Ativan) 2 Mg Tablet, 1 TAB PO QID for 30 Days, #90 TAB 0 Refills 05/01/24 Hydrocodone/Acetaminophen (Hydrocodon-Acetaminophn 10-325) 10 Mg-325 Mg Tablet, 1 TAB PO QIDP PRN for pain for 30 Days, #120 TAB 0 Refills 05/01/24 Amlodipine Besylate (Amlodipine Besylate) 10 Mg Tablet, 1 TAB PO DAILY for 30 Days, #30 TAB 0 Refills 05/01/24 Pantoprazole Sodium (Pantoprazole Sodium) 40 Mg Tablet.dr, 1 TAB PO BID for 30 Days, #30 TAB 0 Refills 05/01/24 Zolpidem Tartrate (Ambien) 10 Mg Tablet, 1 TAB PO HS PRN for sleep for 30 Days, #30 TAB 0 Refills 05/01/24 Naloxone HCl (Naloxone HCl) 4 Mg/Actuation [place], 4 MG EN AD 04/20/24 Fluticasone/Umeclidin/Vilanter (Trelegy Ellipta 100-62.5-25) 100-62.5 Blst.w.dev, 1 PUFF PO DAILY 04/20/24 Lisinopril (Lisinopril) 10 Mg Tablet, 1 TAB PO DAILY for 30 Days, #30 TAB 0 Refills 03/22/24 Clonidine HCl (Catapres-Tts 3) 0.3 Mg/24 Hour Patch.tdwk, 0.3 EACH TD Q5D 11/13/23 Past Medical History Past Medical History: Diabetes-Type II Additional Past Medical Hx: PULMONARY EDEMA Surgical History: Unknown Surgical History Other: ELBOW SX Family History: HTN Social History: Smokers, Negative, Lives alone Review of System Dictation Constitutional: Complaining of fever Eyes: Negative for injury, pain,redness, and discharge ENT: Negative for injury,pain or swelling Cardiovascular: Negative for chest pain, palpitations, and edema Respiratory: Complaining of cough and congestion Abdomen/GI: Negative for abdominal pain, nausea, vomiting, diarrhea, and constipation Back: Negative for injury and pain : Negative for injury, bleeding and discharge MS/Extremity: Negative for injury and deformity Skin: Negative for rash, and discoloration Neuro: Negative for headache, weakness, numbness, tingling, and seizure Psych: Negative for suicide ideation, homicidal ideation, and hallucinations Review of Systems: was completed Initial Vital Sign VS Vital Signs Date Time Temp Pulse Resp B/P (MAP) Pulse Ox O2 Delivery O2 Flow Rate FiO2 10/03/24 10:02 103.3 22 188/87 90 Room Air 0 10/03/24 10:17 125 Physical Exam Dictation General: awake, alert, NAD Head/Face: Normocephalic, atraumatic Eyes: PERRL, EOMI, vision at baseline ENT: oral cavity clear, TMs clear, no signs of infection Neck: Trachea midline, supple, no nuchal rigidity Cardiovascular: RRR, normal S1/S2, No MRGs, no JVD Respiratory: CTAB, no respiratory distress, No rales or wheezes Abdomen: Soft, non-tender, non-distended, normal bowel sounds, no guarding or rebound. Skin: Warm, dry, normal turgor, no rash MS/Extremity: Pulses equal, no cyanosis, neurovascular intact, FROM Neuro: COAx4, GCS 15, strength 5/5, CN 2-12 intact, normal cerebellar exam, normal gait, Psych: Normal behavior, mood, and affect normal Results (Laboratory/Radiology) Laboratory/Radiology Laboratory Tests Test 10/03/24 10:07 Group A Streptococcus Rapid negative (NEGATIVE) Labs Reviewed?: Yes ED Course ED Course Orders Procedure Category Date Status Time Covid19 (Sars Antigen LAB 10/03/24 In Process Rapid) 10:01 Influenza Type A & B, LAB 10/03/24 In Process Rapid 10:01 Rapid (Group A Strep) LAB 10/03/24 In Process 10:01 Cbc With Differential LAB 10/03/24 In Process 10:22 Basic Metabolic Panel LAB 10/03/24 In Process 10:22 Lactic Acid LAB 10/03/24 In Process 10:22 Blood Cult ELAN 10/03/24 Logged 10:22 Chest 1vw RAD 10/03/24 Logged 10:22 12 Lead Ekg Tracing- EKG 10/03/24 Logged Technical 10:22 Urinalysis Profile LAB 10/03/24 Logged 10:22 Troponin I High LAB 10/03/24 In Process Sensitivity 10:22 0.9%Nacl 1000ml (Ns PHA 10/03/24 In Process 1000ml) 10:22 Acetaminophen 325 Tab PHA 10/03/24 Complete (Tylenol 325mg Tab 10:22 Current Medications Medications (Trade) Dose Ordered Sig/Annalee Route PRN Reason Start Time Stop Time Status Last Admin Dose Admin Acetaminophen (TYLenol 325MG TAB) 650 mg ONCE STAT PO 10/03/24 10:22 10/03/24 10:26 DC 10/03/24 10:42 Sodium Chloride 1,000 ml @ 1,000 mls/hr Q1H STAT IV 10/03/24 10:22 10/03/24 11:21 10/03/24 10:45 Vital Signs Date Time Temp Pulse Resp B/P (MAP) Pulse Ox O2 Delivery O2 Flow Rate FiO2 10/03/24 10:42 103.3 10/03/24 10:17 103.3 125 22 188/87 90 0 10/03/24 10:02 103.3 22 188/87 90 Room Air 0 Medical Decision Making MDM 74-year-old male with a history of hypertension coming in with complaints of flu-like symptoms, cough, congestion and fever. Patient states it started today. Denies having any chest pain, chest discomfort, headache. I was notified the patient refusing his chest x-ray. I went to go speak with the patient, states he does not need a chest x-ray because his back is fine. Educ ated patient has a chest x-ray is being done to rule out any infectious process since he came in with cough, congestion, fever along with pneumothorax or any other etiology that could be causing his shortness a breath and cough. Patient refused x-ray, states he just wants to go home. Patient was educated on risks of leaving against medical advice including worsening condition and . Patient verbalized understanding. DX & DISP Disposition: AMA Departure Impression: Primary Impression: Left against medical advice Condition: Stable Referrals: MELONY NICHOLS MD (PCP) I have reviewed the case, and I agree with, Diagnosis and Plan ROGERS GREGORIO NP Oct 03, 2024 10:59
[2024-10-03 11:02] LABS: COVID19 (SARS ANTIGEN RAPID) PRESUMPTIVE NEGATIVE (NEGATIVE)
[2024-10-03 11:03] LABS: INFLUENZA TYPE A Negative For Type A (NEGATIVE); INFLUENZA TYPE B Negative For Type B (NEGATIVE)
[2024-10-03 11:07] LABS: CREATININE 1.9 mg/dL (0.5-1.3)
--- NOTE | 2024-10-03 13:24 | NUR ---
EKG WAS CANCELLED D/T PT HAVING REFUSED AND EVENTUALLY LEAVING AMA.
[2024-10-04] MEDS ORDERED: CLON1PAT14 TD (18:56)
== END 2024-10-03 11:24 | disposition left against medical advice (07) ==
LOC: EDH 10:00
DX: R05.9 Cough, unspecified (principal); R42 Dizziness and giddiness; R09.81 Nasal congestion; R50.9 Fever, unspecified; E11.9 Type 2 diabetes mellitus without complications; F17.200 Nicotine dependence, unspecified, uncomplicated; Z79.899 Other long term (current) drug therapy; Z20.822 Contact with and (suspected) exposure to COVID-19
CPT/HCPCS: 99284; 96360; 87426; 84484; 80048; 85025; 87040 ×2; 87880; 87804 ×2; 83605; 36415; J7030

== ENCOUNTER 2024-10-03 16:38 | Inpatient (IN) | payer OTHER, MEDICARE ==
[~2024-10-03] VITALS: Ht 167.6 cm; Wt 76.8 kg
[2024-10-03] MEDS: cefTRIAXone 1G VIAL IVPB ONE (17:16)
[2024-10-03] MEDS: AZITHROMYCIN 500MG+NS 250ML 250 ML IVPB SCH (17:16)
[2024-10-03] MEDS: LACTATED RINGERS 1000ML 2,200 ML IV ONE (17:17)
--- NOTE | 2024-10-03 18:17 | ERN ---
General Chief Complaint: Fever Stated Complaint: FEVER Time Seen by MD: 16:48 History of Present Illness Initial Comments 74-year-old male brought in by EMS from home for weakness flu-like illness and a near fall. Patient has had flu-like symptoms including cough congestion fever and weakness for about 24 hours now. He actually presented to this facility earlier today, he was worked up and was going to be admitted, but the patient has signed out against medical advice to go home. He reports to me the wound went home he was lying on the couch, he tried to stand up and he felt so weak that he almost fell over. He did not have any trauma. He called EMS. EMS brought him here with tachycardia but otherwise stable vital signs. Allergies: Coded Allergies: trazodone (Unverified Allergy, Mild, DIZZINESS, 07/19/20) AMS Home Meds Reported Medications Lorazepam (Ativan) 2 Mg Tablet, 2 MG PO Q8HRS, TAB 05/11/24 Lisinopril (Lisinopril) 20 Mg Tablet, 1 TAB PO DAILY for 30 Days, #30 TAB 0 Refills 05/11/24 Sodium Bicarbonate (Sodium Bicarbonate) 650 Mg Tablet, 1 TAB PO DAILY for indigestion for 30 Days, #60 TAB 0 Refills 05/01/24 Sucralfate (Sucralfate) 1 Gram Tablet, 1 TAB PO QID for 30 Days, #120 TAB 0 Refills 05/01/24 Lorazepam (Ativan) 2 Mg Tablet, 1 TAB PO QID for 30 Days, #90 TAB 0 Refills 05/01/24 Hydrocodone/Acetaminophen (Hydrocodon-Acetaminophn 10-325) 10 Mg-325 Mg Tablet, 1 TAB PO QIDP PRN for pain for 30 Days, #120 TAB 0 Refills 05/01/24 Amlodipine Besylate (Amlodipine Besylate) 10 Mg Tablet, 1 TAB PO DAILY for 30 Days, #30 TAB 0 Refills 05/01/24 Pantoprazole Sodium (Pantoprazole Sodium) 40 Mg Tablet.dr, 1 TAB PO BID for 30 Days, #30 TAB 0 Refills 05/01/24 Zolpidem Tartrate (Ambien) 10 Mg Tablet, 1 TAB PO HS PRN for sleep for 30 Days, #30 TAB 0 Refills 05/01/24 Naloxone HCl (Naloxone HCl) 4 Mg/Actuation [place], 4 MG EN AD 04/20/24 Fluticasone/Umeclidin/Vilanter (Trelegy Ellipta 100-62.5-25) 100-62.5 B lst.w.dev, 1 PUFF PO DAILY 04/20/24 Lisinopril (Lisinopril) 10 Mg Tablet, 1 TAB PO DAILY for 30 Days, #30 TAB 0 Refills 03/22/24 Clonidine HCl (Catapres-Tts 3) 0.3 Mg/24 Hour Patch.tdwk, 0.3 EACH TD Q5D 11/13/23 Past Medical History Past Medical History: COPD, High Cholesterol, Hypertension Medical History Other: PULMONARY EDEMA Past Surgical History: None Surgical History Other: ELBOW SX Family History Family History: HTN Social History Social History: Smokers, Negative, Lives alone ROS Dictation CONSTITUTIONAL: Fever HEAD/FACE: No signs of trauma. EENT: No eye pain, no blurred vision, no tearing, no double vision, no ear pain, no ear discharge, no nose pain, no nasal congestion, no throat pain, no throat swelling, no mouth pain. RESPIRATORY: Cough congestion CARDIOVASCULAR: No chest pain, no edema, no palpitations, no syncope. GASTROINTESTINAL/ABDOMINAL: No abdominal pain, no constipation, no diarrhea, no nausea, no vomiting. GENITOURINARY: No abnormal discharge, no dysuria, no frequent urination, no hematuria. No complaints of pain in the genitals. MUSCULOSKELETAL: No back pain, no gout, no joint pain, no joint swelling, no muscle pain, no muscle stiffness, no neck pain. INTEGUMENTARY: No change in color, no change in hair/nails, no dryness, no lesion, no lumps, no rash. NEUROLOGICAL/PSYCH: No anxiety, not depressed, no emotional problem, no headache, no numbness, no pre-existing deficit, no history of seizures, no tremors, no weakness. HEMATOLOGIC/LYMPHATIC: Not anemic, no history of blood clots, no apparent bl eeding, no bruising, glands not swollen. All Systems Negative, Except as Noted. Physical Exam Physical Exam Dictation VITAL SIGNS: Reviewed. GENERAL APPEARANCE: Alert, oriented x3, moderate distress HEAD AND FACE: Non-traumatic. EYES: PERRL, pink conjunctivas, eyelid no trauma, anterior chamber clear. EARS: Pinnas intact and no signs of trauma or erythema. Ear canals clear and no discharge. TMs no erythema. NOSE: No discharge, no bleeding. OROPHARYNX: Mouth normal, teeth no caries, tongue pink. Pharynx clear, no erythema. Tonsils no exudates, no abscesses noted. Mucous membrane moist. NECK: Supple, non-tender, no thyromegaly, no masses, no JVD, no bruits. BREAST: Deferred. CHEST: No tenderness, no crepitus, no paradoxical movement, no retractions. LUNGS: Rhonchus breath sounds HEART: Regular rate, regular rhythm, no murmur, no gallops. VASCULAR: No peripheral edema. ABDOMEN: Soft, positive bowel sounds, nondistended, no guarding, nontender, no rebound, no masses no hepatomegaly, no splenomegaly, no Adrian's sign, no hernias. RECTAL: Deferred. GENITAL: Deferred. NEUROLOGICAL: Normal speech, gross motor function intact, gross sensory function intact. MUSCULOSKELETAL: Neck nontender, full range of motion, back nontender, full range of motion. EXTREMITIES: Nontender, full range of motion. SKIN: Color pink, dry, no turgor, no rash, no lacerations, no abrasions, no contusions. LYMPHATICS: Deferred. Results Laboratory and Microbiology Lab and Micro Result Laboratory Tests Test 10/03/24 17:21 Lactic Acid Level 1.9 mmol/L (0.8-2.5) MDM CC: Cough congestion fever weakness Historian: Patient Comorbidities: COPD, dyslipidemia, hypertension, smoking history Limitations by social determinants of health: None Differential diagnosis: Sepsis, pneumonia, dehydration, other Initial vital signs: Febrile 101.1, blood pressure steady. Tachycardic 105. 99% on room air. EKG (independently interpreted by me): Sinus rhythm, rate 91, normal axis, good R-wave progression, intervals are stable. No STEMI. Chest x-ray (independently interpreted by me): No cardiomegaly pleural effusions. Some infiltrates/congestion in the right side consistent with a pneumonia. Patient had lab work done just few hours ago here. No leukocytosis or shift. Chemistry shows creatinine 1.9 BUN of 37 baseline per patient the other electrolytes are all stable. Lactic acid 1.9 here. SARS flu negative. Patient meets sepsis criteria. Started on sepsis protocol including 30 cc/kg of fluids and antibiotics. Patient received azithromycin Rocephin in the ER. On sepsis focused re-evaluation after the fluid bolus and the IV antibiotics patient has stable perfusion, cap refill less than 2 seconds. Treatment in ED: Lactated Ringer's, Rocephin, azithromycin, DuoNeb We will admit the patient for sepsis likely pneumonia Patient is agreeable Consultation: Hospitalist for admission ED Course Orders Procedure Category Date Status Time Lactated Ringers PHA 10/03/24 Complete 1000ml (Lactated 17:00 Ceftriaxone 1g Vial PHA 10/03/24 Complete (Rocephine 1g Inj) 17:00 Azithromycin 500mg+Ns PHA 10/03/24 In Process 250ml (Azithromyci 17:00 Procalcitonin LAB 10/03/24 In Process 16:51 Lactic Acid LAB 10/03/24 Complete 16:51 Blood Cult ELAN 10/03/24 In Process 16:51 Chest 1vw RAD 10/03/24 Taken 17:07 Current Medications Medications (Trade) Dose Ordered Sig/Annalee Route PRN Reason Start Time Stop Time Status Last Admin Dose Admin Azithromycin 250 ml @ 250 mls/hr Q24H IVPB 10/03/24 17:00 10/13/24 16:59 10/03/24 17:16 Ceftriaxone Sodium (ROCEphine 1G INJ) 1 gm ONCE ONCE IVPB 10/03/24 17:00 10/03/24 17:01 DC 10/03/24 17:16 Lactated Ringer's 2,200 ml @ 0 mls/hr ONCE ONCE IV 10/03/24 17:00 10/03/24 17:01 DC 10/03/24 17:17 Vital Signs Date Time Temp Pulse Resp B/P (MAP) Pulse Ox O2 Delivery O2 Flow Rate FiO2 10/03/24 17:27 101.1 92 16 131/46 99 Room Air* 0 21 10/03/24 16:39 102.9 105 18 150/91 95 Nasal Cannula 3.0 DX & DISP Disposition: Inpatient Departure Impression: Primary Impression: Sepsis Additional Impressions: Pneumonia, CKD (chronic kidney disease) Critical Time: 30 minutes (Critical Care Procedure NoteAuthorized and Performed by: meTotal critical care time: Approximately 36 minutesDue to a high probability of clinically significant, life threatening deterioration, the patient required my highest level of preparedness to intervene emergently and I personally spent this critical care time directly and personally managing the patient. This critical care time included obtaining a history; examining the patient; pulse oximetry; ordering and review of studies; arranging urgent treatment with development of a management plan; evaluation of patient's response to treatment; frequent reassessment; and, discussions with other providers.This critical care time was performed to assess and manage the high probability of imminent, life-threatening deterioration that could result in multi-organ failure. It was exclusive of separately billable procedures and t reating other patients and teaching time.Please see MDM section and the rest of the note for further information on patient assessment and treatment.) Condition: Stable Referrals: MELONY NICHOLS MD (PCP) GM SWIFT DO Oct 03, 2024 18:17
--- NOTE | 2024-10-03 18:19 | HMCIMG ---
CHEST 1VW HISTORY: Fall COMPARISON: 07/18/2024 FINDINGS: A frontal projection of the chest was obtained. Mild bilateral pulmonary infiltrates are seen may be related to mild pulmonary vascular congestion with possible superimposed pneumonitis. The heart is borderline enlarged. Degenerative changes are seen. There are no calcifications are seen. IMPRESSION: 1. Mild bilateral pulmonary infiltrates are seen may be related to mild pulmonary vascular congestion with possible superimposed pneumonitis.
[2024-10-03] MEDS: PHARMACY COMMUNICATION MISC SCH (19:00)
[2024-10-03] MEDS ORDERED: ondanSETRON 4MG INJ IVP PRN (19:00)
[2024-10-03] MEDS: acetaMINOPHEN 325 MG TAB PO PRN (19:12)
--- NOTE | 2024-10-03 19:35 | NUR ---
PT REFUSING TO TAKE OFF BLANKET, EDUCATED ON FEVER PRECATIONS, CONTINUED TO REFUSE TO TAKE OFF BLANKET. PT IS ALERT AND ORIENTED AT BASELINE.
[2024-10-03 19:42] VITALS: PULSE 79; RESP 18; O2SAT 90
[2024-10-03] MEDS: MEROPENEM 1GM 1 GM VIAL IVPB SCH (20:04)
[2024-10-03 20:12] VITALS: TEMP 99.9
[2024-10-03] MEDS: SODIUM CHLORIDE 3% FOR INHALATION 4 ML/AMP VIAL.NEB IH ONE ×2 (21:12→23:42)
--- NOTE | 2024-10-03 22:58 | NUR ---
REPORT GIVEN TO MONSE NEVES ALL QUESTIONS ANSWERED AT THIS TIME. NURSE EXPECTING PT ARRIVAL TO THE UNIT
[2024-10-03 23:10] VITALS: BP 128/62; PULSE 78; RESP 18; TEMP 97.8
[2024-10-03 23:44] VITALS: PULSE 67; RESP 18; O2SAT 97
[2024-10-04] VITALS (8 sets, daily range): BP systolic 107–143; BP diastolic 51–62; PULSE 60–76; RESP 17–20; TEMP 98.1–99.1; O2SAT 96–99
[2024-10-04 06:43] LABS: CREATININE 1.9 mg/dL (0.5-1.3); POTASSIUM 4.6 mmol/L (3.5-5.1)
[2024-10-04 06:53] LABS: BASOPHILS # (AUTO) 0.01 K/uL (0.00-0.20); BASOPHILS % (AUTO) 0.1 % (0.0-5.0); EOSINOPHILS % (AUTO) 2.1 % (0.0-8.0); HEMATOCRIT 31.7 % (42-54); IMMATURE GRANULOCYTE ABSOLUTE 0.04 K/uL (0-1); LYMPHOCYTES # (AUTO) 2.1 K/uL (1.0-4.8); LYMPHOCYTES % (AUTO) 21.7 % (21.0-51.0); MEAN CORPUSCULAR HEMOGLOBIN 30.2 pg (27.0-33.0); MEAN CORPUSCULAR HGB CONC 33.1 g/dL (32.0-36.0); MEAN CORPUSCULAR VOLUME 91.1 fL (79-99); MONOCYTES # (AUTO) 1.2 K/uL (0.1-1.0); MONOCYTES % (AUTO) 12.2 % (3.0-13.0); NEUTROPHILS # (AUTO) 6.2 K/uL (1.8-7.7); NEUTROPHILS % (AUTO) 63.5 % (40.0-77.0); PLATELET COUNT (AUTO) 154 K/uL (130-400); RED BLOOD CELL COUNT(AUTO) 3.48 MIL/uL (4.50-6.20); RED CELL DISTRIBUTION WIDTH 16.9 % (11.0-15.5); WHITE BLOOD COUNT (AUTO) 9.7 K/uL (4.8-10.8)
[2024-10-04] MEDS: SODIUM CHLORIDE 3% FOR INHALATION 4 ML/AMP VIAL.NEB IH ONE (07:09)
--- NOTE | 2024-10-04 07:42 | EKG ---
[facility] Test Date: 2024-10-03 Test Time: 17:15:23 Pat Name: PADMA BALDERRAMA Department: [facility] Room: 321 1 Gender: M Diploma Medical Assistant: [id number] : 1950 Requested By: GM SWIFT Order Number: [id number] Reading MD: Kavita Maier Measurements Intervals [place] Rate: 91 P: 47 [place]: 168 QRS: 21 QRSD: 93 T: 57 QT: 334 QTc: 411 Interpretive Statements Sinus rhythm Borderline ST elevation, anterior leads Compared to ECG 07/18/2024 20:43:48 ST (T wave) deviation now present Electronically Signed On 10-05-2024 15:05:35 CDT by Kavita Maier Please click the below link to view image of tracing.
[2024-10-04] MEDS: ENOXAPARIN SODIUM 30 MG/0.3 ML SQ SCH (09:00)
--- NOTE | 2024-10-04 10:01 | NUR ---
DCP: HOME Pt currently lives alone in his home. Pt uses a walker and nebulizer while at home. Pt has a provider that goes into the home 4 hrs daily to assist with home management and meals. Pt states that he is able to bathe on his own. PCP is Dr. Salazar and uses [facility] for any RX needs. At [place] pt will go home and family can assist with transportation. Addendum: 10/04/24 at 1005 by TOY LOUIS SS Amended: Links added.
[2024-10-04] MEDS: MEROPENEM 1GM 1 GM VIAL IVPB SCH (10:23)
[2024-10-04] MEDS ORDERED: ZOLPidem TARTrate 5 MG TAB PO PRN (13:30)
[2024-10-04] MEDS: LORazepam 2 MG TABLET PO PRN (13:59)
[2024-10-04] MEDS: SUCRALFATE 1 GM TABLET PO SCH (13:59)
--- NOTE | 2024-10-04 18:11 | HP ---
DATE OF SERVICE: 10/03/2024. HISTORY AND PHYSICAL PRESENTING COMPLAINT: Cough, fever, and weakness. HISTORY OF PRESENT ILLNESS: A 74-year-old male with history of hypertension, pneumonia, cranky dizziness, psychiatric disorder and depression, presents to the hospital with fever and cough. Cough is productive of greenish sputum. T-max in the ER was 102.5. The patient was also found with pulse of 105. The patient had recurrent admission for pneumonia due to aspiration. The patient refused PEG placement as recommended by Gastroenterology. No dysuria or urinary frequency. Denies sick contact. Chest x-ray shows bilateral infiltrates. PAST MEDICAL HISTORY: * Recurrent aspiration pneumonia. * Hypertension. * Chronic kidney disease. * Psychiatric disorder. * Depression. * Chronic coronary artery disease. * Esophageal stricture/stenosis. PAST SURGICAL HISTORY: * Multiple EGDs. * Right elbow surgery. * Multiple esophageal dilatations. ALLERGIES: No known drug allergies. HOME MEDICATIONS: Reviewed. SOCIAL HISTORY: Lives alone. No alcohol, tobacco or illicit drug use. FAMILY HISTORY: Noncontributory. REVIEW OF SYSTEMS: CONSTITUTIONAL: Positive for fever and chills. No weight loss or night sweats. EYES: No eye pain. No photophobia or diplopia. HENT: No sore throat. No rhinorrhea or earache. NECK: No neck pain or neck swelling. RESPIRATORY: Positive for cough. No hemoptysis or pleuritic pain. CARDIOVASCULAR: No chest pain, palpitation or orthopnea. GASTROINTESTINAL: No nausea, vomiting or abdominal pain. GENITOURINARY: No dysuria, urgency or urinary frequency. CENTRAL NERVOUS SYSTEM: No headache, dyspnea, or slurred speech. PSYCHIATRIC: No depression. No suicidal ideation. MUSCULOSKELETAL: Denies joint pain or joint swelling. PHYSICAL EXAMINATION: GENERAL: Elderly male, awake. VITAL SIGNS: Temperature 102.9, pulse 105, respiratory rate 18, BP 150/99. EYES: No icterus. Pupils equal and reactive. HENT: No oral thrush seen. Moist oral mucosa. NECK: Supple. No JVD or thyromegaly. LUNGS: Crackles bilaterally. No rhonchi. CARDIOVASCULAR SYSTEM: S1 and S2 regular. No murmur heard. Tachycardic. ABDOMEN: Full, soft, nontender. Bowel sound is present. CENTRAL NERVOUS SYSTEM: Awake, alert and oriented x 3. No focal deficits. SKIN: No rashes. No itchiness. LYMPHATIC: No peripheral lymphadenopathy. BACK: No deformity. No pressure ulcer. MUSCULOSKELETAL: No joint swelling, erythema or tenderness. LABORATORY DATA: Sodium 137, potassium 4.6, BUN 20, creatinine 1.9. WBC 9.7, hemoglobin 10.5, platelet 154. RADIOLOGY: Chest x-ray shows bilateral infiltrates. ASSESSMENT: A 74-year-old male presented with cough and fever. Current problems include: * Sepsis. * Possible aspiration pneumonia. * Hypertension. * History of depression. * History of chronic pain. * Medical noncompliance. * Esophageal stricture/stenosis. PLAN: * The patient admitted to medical floor. * Start the patient on meropenem. * Tylenol as needed for pain or fever. * Continue antihypertensive. * Continue nutritional support. * Continue antiemetic. * Monitor electrolyte. * The patient will be followed up closely. Thank you for allowing me to participate in the care of this patient. TID: [id number] RECEIPT: [id number] [facility]
[2024-10-04] MEDS ORDERED: CLON1PAT14 TD (18:56)
[2024-10-04] MEDS ORDERED: HYDR-4068 PO (18:56)
--- NOTE | 2024-10-04 20:00 | NUR ---
MEDS DR POWER IN TO SEE PT. NEW ORDERS RECEIVED, PLEASE REFER TO CPOE. SHIFT ASSESSMENT DONE, PLEASE REFER TO CHART. DUE MEDS ADMINISTERED, TOLERATED WELL. INSTRUCTED TO HOB NEEDING TO BE AT 30 DEGREES ANGLE AT ALL TIMES. RE-ITERATED FALL PRECAUTIONS. KEPT RESTED AND COMFORTABLE IN BED. CALL LIGHT WITHIN REACH.
[2024-10-04] MEDS: PANTOPrazole 40 MG TAB DR PO SCH (20:10)
[2024-10-04] MEDS: LORazepam 2 MG TABLET PO SCH (20:10)
[2024-10-05] VITALS (8 sets, daily range): BP systolic 137–156; BP diastolic 52–65; PULSE 60–74; RESP 17–20; TEMP 98–98.6; O2SAT 92–96
[2024-10-05] MEDS: ZOLPidem TARTrate 5 MG TAB PO PRN (00:14)
--- NOTE | 2024-10-05 01:08 | CONS ---
GASTROENTEROLOGY CONSULTATION REASON FOR CONSULTATION: GI bleed, acute anemia, dysphagia, history of PUD, achalasia and esophageal stenosis. HISTORY OF PRESENT ILLNESS: The patient is a 74-year-old male with a history of hypertension, recurrent aspiration pneumonia, depression, chronic kidney disease, PUD, achalasia, esophageal stenosis who was admitted with fever, chills, known to have pneumonia versus pneumonitis and who also reports coffee-ground phlegm production and sputum and dysphagia and who also has acute anemia on labs. GI evaluation and management is sought. According to the patient, over the last 24 hours, he has been having episodes of fever and chills. He also has been having yellow sputum production over the last 3 days and this turned to a black phlegm production in the last 24 hours. The patient reports he has also experienced weakness and near syncopal. He has been having dysphagia with solids again and this he reports started 1 week ago and as per the patient, he has food getting stuck at the base of his neck. He denies any nausea, vomiting, melena, hematochezia. He admits to compliance with his medications. ALLERGIES: TRAZODONE. PAST MEDICAL AND PAST SURGICAL HISTORY: See above. Also hypertension, chronic kidney disease, recurrent aspiration pneumonia, depression, coronary artery disease, achalasia, history of PUD, history of esophageal stenosis. Denies history of OH, CVA, VM. He has undergone EGD with dilation and also right elbow surgery. MEDICATIONS: Clonidine, amlodipine, sodium bicarbonate, lisinopril, lorazepam, pantoprazole, hydrocodone, bitartrate/acetaminophen, Zolpidem tartrate, sucralfate, enoxaparin, meropenem, ondansetron and azithromycin. SOCIAL HISTORY: Denies recent alcohol use, tobacco use or illicit drug use. FAMILY HISTORY: No family history of colon cancer, stomach cancer or IBD. REVIEW OF SYSTEMS: CONSTITUTIONAL: The patient reports fever and chills have subsided since hospitalization. He still feels weak. He has black phlegm production in the oral cavity. DERMATOLOGY: Denies any rash, bruise, excessive dry skin. OPHTHALMOLOGY: No recent vision change, eye pain, periorbital swelling, redness or drainage. RESPIRATORY: He has been having yellow and now black phlegm production. He denies any wheeze or epistaxis. CARDIOVASCULAR: No chest pain, palpitations or leg swelling. GENITOURINARY: No dysuria, hematuria, urgency or frequency. GASTROINTESTINAL: The patient has been having black phlegm production and dysphagia with solids. He denies nausea, vomiting, melena, hematochezia or constipation. MUSCULOSKELETAL: No joint pain or joint swelling. He has backache on and off. NEUROLOGY: No tingling, numbness, vision changes, hearing loss but he has been feeling weak and had near syncopal episode. ENDOCRINOLOGY: No history of diabetes, thyroid disease or hyperlipidemia. HEMATOLOGY/LYMPHATICS: He has been having black phlegm production. He denies easy bruising or inherited bleeding disorders. PHYSICAL EXAMINATION: GENERAL: The patient is a 74-year-old male who appears of stated age, seen resting in bed in no acute respiratory distress. VITAL SIGNS: Blood pressure: 140/57, heart rate 70, respirations 17 and temperature 98.2 degrees Fahrenheit. SKIN: Warm and dry with no active dermatosis. HEENT: The patient's head is normocephalic, atraumatic. Pupils reactive. Sclerae anicteric. Oral mucosa was moist. No obvious lesion. No blood noted. Nasal mucosa showed no epistaxis, septal deviation or perforation. NECK: No obvious mass, no jugular venous distention, no lymphadenopathy or thyromegaly. LUNGS: Clear to auscultation bilaterally. HEART: S1, S2. No obvious murmurs, rubs or gallops auscultated ABDOMEN: Mildly protuberant, soft with active bowel sounds. No hepatomegaly or masses. No tenderness noted. EXTREMITIES: No cyanosis, clubbing or edema. RECTAL: Defect. LABORATORY AND DIAGNOSTIC DATA: Chest x-ray done showed mild bilateral pulmonary infiltrates which may be related to mild pulmonary vascular congestion with possible superimposed pneumonitis. WBC done earlier today was 9.7, hemoglobin 10.5, hematocrit 31.7, MCV of 91.1 and platelet count of 154. Serum chemistry revealed sodium 137, potassium 4.6, chloride of 106, CO2 of 25, BUN of 42, creatinine of 1.9, GFR of 36 and random glucose of 99. Lactic acid of 1.9 one day ago. Total calcium 8.9. Magnesium level of 2. Procalcitonin 0.09. IMPRESSION: * Black phlegm production suggests gastrointestinal bleed and non-healing peptic ulcer possible. The patient has had history of esophageal ulcer secondary to his gastroesophageal reflux disease. * Achalasia. * History of peptic ulcer disease puts the patient at risk for recurrent nonhealing peptic ulcer disease as above. * Acute anemia, likely from blood loss as listed above. * Dysphagia, likely related to esophageal stricture, achalasia or esophageal ulcer but cannot exclude any fungal or infectious process in the esophagus such as sylvie. * Sepsis at this admission. * Possible pneumonia. * Hypertension. * Chronic kidney disease. * Coronary artery disease. * History of depression. PLAN: * Keep on clear-liquid diet for now. * Continue with Protonix therapy. * Recommend EGD for evaluation and management. Since the patient had soft solid food today, we will need to change to p.o. clears in the a.m. and then n.p.o. for EGD 24 hours later. * Continue to monitor CBC, transfuse PRBC as needed. Keep hemoglobin to a level of 7. * Follow up on any blood cultures pending. * Strict adherence to anti-reflux measures. * We will need to hold Lovenox for 24 hours prior to endoscopy. * The above labs, imaging study and their significance were discussed with this patient. The physical findings and their significance were also discussed with the patient. The patient verbalizes understanding of these and of the management plan as discussed above. The patient agrees with management plan as noted above. All questions were answered. Dr. Ramirez, thank you for allowing me to participate in the care of this patient. TID: [id number] RECEIPT: [id number] cc: BRYCE RAMIREZ MD(User)
--- NOTE | 2024-10-05 06:13 | NUR ---
ROUNDS PT RESTING WELL. SLEPT AT INTERVALS DURING THE SHIFT. NO CONCERNS VERBALIZED. NO DISTRESS NOTED. KEPT RESTED AND COMFORTABLE IN BED WITH HOB ELEVATED. CALL LIGHT WITHIN REACH. FOR MORE CARE.
[2024-10-05 06:33] LABS: HEMATOCRIT 32.9 % (42-54); MEAN CORPUSCULAR HEMOGLOBIN 30.1 pg (27.0-33.0); MEAN CORPUSCULAR HGB CONC 33.4 g/dL (32.0-36.0); MEAN CORPUSCULAR VOLUME 90.1 fL (79-99); RED BLOOD CELL COUNT(AUTO) 3.65 MIL/uL (4.50-6.20); RED CELL DISTRIBUTION WIDTH 15.9 % (11.0-15.5); WHITE BLOOD COUNT (AUTO) 6.4 K/uL (4.8-10.8)
[2024-10-05 06:41] LABS: CREATININE 1.5 mg/dL (0.5-1.3); POTASSIUM 4.2 mmol/L (3.5-5.1)
--- NOTE | 2024-10-05 07:53 | PN ---
INFECTIOUS DISEASE FOLLOWUP NOTE DATE OF SERVICE: 10/04/2024 SUBJECTIVE: The patient is seen and examined at bedside today. Still has some cough. Fever is better. No sore throat or rhinorrhea. No heat or cold intolerance. No bleeding tendencies. No palpitations or orthopnea. Denies depression. No suicidal ideation. No rashes or itchiness. PHYSICAL EXAMINATION: VITAL SIGNS: Temperature today 98.9. EYES: No icterus. Pupils are equal and reactive. HENT: No oral thrush seen. Moist oral mucosa. NECK: Supple. No JVD or thyromegaly. LUNGS: Good air entry. No rales. No rhonchi. CARDIOVASCULAR: S1 and S2, regular. No murmur heard. ABDOMEN: Full, soft, nontender. Bowel sound is present. CENTRAL NERVOUS SYSTEM: Awake, alert and oriented x 3. No focal deficits. SKIN: No rashes. No itchiness. LYMPHATIC: No peripheral lymphadenopathy. BACK: No deformity. No pressure ulcer. HEMATOLOGIC: No bleeding or petechial lesions seen. ASSESSMENT: A 74-year-old male who presented with cough and fever. CURRENT PROBLEMS: Include: * Sepsis. * Pneumonia. * Hypertension. * Chronic pain. * Debility. * Esophageal varices. PLAN: * Continue meropenem. * Followup cultures. * Continue pain management. * Continue antihypertensive. * Continue DVT prophylaxis. * Monitor electrolytes. * Continue oxygen. TID: [id number] RECEIPT: [id number]
[2024-10-05] MEDS: SODIUM BICARBONATE 650 MG TAB PO SCH (09:00)
[2024-10-05] MEDS: amLODIPine 5 MG TAB PO SCH (09:00)
[2024-10-05] MEDS: LISINOPRIL 20 MG TABLET PO SCH (09:01)
[2024-10-05] MEDS: HYDROcodone/acetaMINOPHEN 10/325 MG TAB PO PRN (16:36)
--- NOTE | 2024-10-05 18:36 | PN ---
INFECTIOUS DISEASE PROGRESS NOTE Date of Service: Oct 05, 2024 SUBJECTIVE: This is a 74-year-old male patient who was seen and examined at bedside in room 321. Patient is awake, alert and oriented x3. Continues with coughing episodes but no dyspnea observed and is saturating 95% on room air. Patient is afebrile this morning, temperature is 98.1. We will continue on Meropenem 1 g IV every 12 hours. Patient has been evaluated by Gastroenterology for possible GI bleed and is scheduled for a EGD for tomorrow. PHYSICAL EXAM EYES: Anicteric. Pupils equal and reactive. HENT: No oral thrush seen, moist Oral mucosa. NECK: Supple, no JVD or thyromegaly. LUNGS: Good air entry. No rales, no rhonchi.Cough CARDIOVASCULAR: S1, S2 regular. No murmur heard. ABDOMEN: Soft, non tender, bowel sounds present, no organomegaly CENTRAL NERVOUS SYSTEM: Awake, alert, oriented x 3. SKIN: No rashes, no swelling. LYMPHATICS: No peripheral lymphadenopathy MUSCULOSKELETAL: No joint swelling, erythema or tenderness. EXTREMITIES: No cyanosis or clubbing. BACK: No deformity, no pressure ulcer. GENITOURINARY: No dysuria or hematuria. Vital Sign (Last 12 Hours) 10/05/24 10/05/24 10/05/24 10/05/24 07:07 08:00 12:00 16:00 Temp 98.1 98.4 98.1 Pulse 62 62 66 61 Resp 18 17 17 17 B/P (MAP) 156/60 137/57 153/62 Pulse Ox 92 95 95 O2 Delivery N/A Room Air Room Air Room Air Room Air FiO2 21 Intake & Output (last 24hrs) 10/04/24 10/04/24 10/05/24 15:00 23:00 07:00 Intake Total 100 ml 315.0 ml Output Total 150 ml Balance -50 ml 315.0 ml LABS: Laboratory: Test 10/05/24 06:17 10/04/24 06:09 Range/Units White Blood Count 6.4 4.8-10.8 K/uL Red Blood Count 3.65 L 4.50-6.20 MIL/uL Hemoglobin 11.0 L 14.0-18.0 g/dL Hematocrit 32.9 L 42-54 % Mean Corpuscular Volume 90.1 79-99 fL Mean Corpuscular Hemoglobin 30.1 27.0-33.0 pg Mean Corpuscular Hemoglobin Concent 33.4 32.0-36.0 g/dL Red Cell Distribution Width 15.9 H 11.0-15.5 % Platelet Count 146 130-400 K/uL Mean Platelet Volume 9.6 7.5-10.5 fL Nucleated Red Blood Cells 0.0 0.0-0.19 % Sodium Level 137 136-145 mmol/L Potassium Level 4.2 3.5-5.1 mmol/L Chloride Level 104 101-111 mmol/L Carbon Dioxide Level 24 21-32 mmol/L Blood Urea Nitrogen 27 H 7-18 mg/dL Creatinine 1.5 H 0.5-1.3 mg/dL Glomerular Filtration Rate Calc 48 >90 mL/min Random Glucose 117 H 70-105 mg/dL Total Calcium 9.3 8.5-10.1 mg/dL Magnesium Level 2.00 1.80-2.40 mg/dL Immature Granulocyte % (Auto) 0.4 0-1 % Neutrophils (%) (Auto) 63.5 40.0-77.0 % Lymphocytes (%) (Auto) 21.7 21.0-51.0 % Monocytes (%) (Auto) 12.2 3.0-13.0 % Eosinophils (%) (Auto) 2.1 0.0-8.0 % Basophils (%) (Auto) 0.1 0.0-5.0 % Neutrophils # (Auto) 6.2 1.8-7.7 K/uL Lymphocytes # (Auto) 2.1 1.0-4.8 K/uL Monocytes # (Auto) 1.2 H 0.1-1.0 K/uL Eosinophils # (Auto) 0.20 0.00-0.70 K/uL Basophils # (Auto) 0.01 0.00-0.20 K/uL Absolute Immature Granulocyte (auto 0.04 0-1 K/uL ASSESSMENT: Pneumonia. Sepsis. History of Esophageal varices. Hypertension. Chronic kidney disease. Chronic pain. PLAN: Continue Meropenem 1 g IV every 12 hours. Home medications were reviewed and reconciled. Continue pain management. We will follow up on the cultures results. We will monitor electrolytes. Patient has been evaluated by GI and is scheduled for EGD tomorrow. This case was reviewed and discussed with my supervising physician and the above assessment and plan was formulated and agreed upon. ATTESTATION BY PHYSICIAN I have seen and examined the patient. I reviewed the documentation, medical decision making, and treatment plan as noted by the mid-level provider above. I agree with the findings and plan of care. BRYCE RAMIREZ MD, MIRTA L [facility] Oct 05, 2024 18:36
--- NOTE | 2024-10-05 19:55 | NUR ---
MEDS SHIFT ASSESS DONE, PLEASE REFER TO CHART. DUE MEDS ADMINISTERED, TOLERATED WELL. KEPT RESTED AND COMFORTABLE IN BED. CALL LIGHT WITHIN REACH. INSTRUCTED TO BE NPO POST MN FOR EGD IN AM. PT VERBALIZES UNDERSTANDING.
--- NOTE | 2024-10-05 22:46 | NUR ---
PAIN PT CALLS FOR PAIN MEDICATION. MEDICATED WITH NORCO PO. KEPT RESTED AND COMFORTABLE IN BED. CALL LIGHT WITHIN REACH. WILL RE-ASSESS PT.
--- NOTE | 2024-10-05 23:49 | NUR ---
SLEEP PT CALLS FOR HIS SLEEPING MED. MEDICATED WITH AMBIEN PO. KEPT WARM AND COMFORTABLE. ENCOURAGED TO REST AND SLEEP. KEPT NPO FROM RI.
[2024-10-06] VITALS (16 sets, daily range): BP systolic 117–160; BP diastolic 48–93; PULSE 55–67; RESP 16–20; TEMP 97.6–98.2; O2SAT 93–94
--- NOTE | 2024-10-06 05:31 | NUR ---
ROUNDS PT JUST HAD A BM IN THE RESTROOM. NO CONCERNS VERBALIZED. NO DISTRESS NOTED. KEPT NPO FOR PROCEDURE. FOR MORE CARE.
[2024-10-06 06:36] LABS: HEMATOCRIT 36.5 % (42-54); MEAN CORPUSCULAR HEMOGLOBIN 29.9 pg (27.0-33.0); RED BLOOD CELL COUNT(AUTO) 4.15 MIL/uL (4.50-6.20); RED CELL DISTRIBUTION WIDTH 15.5 % (11.0-15.5); WHITE BLOOD COUNT (AUTO) 6.1 K/uL (4.8-10.8)
[2024-10-06 06:52] LABS: CREATININE 1.5 mg/dL (0.5-1.3); MAGNESIUM 1.9 mg/dL (1.80-2.40); POTASSIUM 3.8 mmol/L (3.5-5.1)
[2024-10-06] MEDS ORDERED: PHARMACY COMMUNICATION 1 EACH EACH MISC SCH (09:30)
[2024-10-06] MEDS ORDERED: LIDOCAINE PF 100MG/5ML (2%) SYRINGE 5ML ONE (12:46)
[2024-10-06] MEDS ORDERED: proPOFol 10 MG/ML 20ML VIAL IV ONE ×2 (12:46→13:02)
[2024-10-06] MEDS ORDERED: FLUT1BLS3 PO (16:23)
--- NOTE | 2024-10-06 20:20 | NUR ---
MEDS SHIFT ASSESSMENT DONE, PLEASE REFER TO CHART. DUE MEDS ADMINISTERED, TOLERATED WELL. KEPT RESTED AND COMFORTABLE IN BED. CALL LIGHT WITHIN REACH. CALLED PHARMACY FOR PT'S HOME MEDS, PHARMACIST BERHANE STATED WILL LOOK INTO IT.
--- NOTE | 2024-10-06 21:33 | PN ---
INFECTIOUS DISEASE PROGRESS NOTE Date of Service: Oct 06, 2024 SUBJECTIVE: Patient has remained afebrile for the past 48 hours and the WBC remains within normal level at 6.1. No growth reported yet on the sputum cultures and the blood cultures. We will continue on Meropenem 1 g IV every 12 hours. Patient is out for EGD procedure. PHYSICAL EXAM EYES: Anicteric. Pupils equal and reactive. HENT: No oral thrush seen, moist Oral mucosa. NECK: Supple, no JVD or thyromegaly. LUNGS: Good air entry. No rales, no rhonchi.Cough CARDIOVASCULAR: S1, S2 regular. No murmur heard. ABDOMEN: Soft, non tender, bowel sounds present, no organomegaly CENTRAL NERVOUS SYSTEM: Awake, alert, oriented x 3. SKIN: No rashes, no swelling. LYMPHATICS: No peripheral lymphadenopathy MUSCULOSKELETAL: No joint swelling, erythema or tenderness. EXTREMITIES: No cyanosis or clubbing. BACK: No deformity, no pressure ulcer. GENITOURINARY: No dysuria or hematuria. Vital Sign (Last 12 Hours) 10/06/24 10/06/24 10/06/24 10/06/24 12:00 13:15 13:20 13:25 Temp 98.1 97.7 Pulse 59 61 61 62 Resp 18 17 17 17 B/P (MAP) 158/93 127/55 121/48 117/73 Pulse Ox 94 100 100 100 O2 Delivery Room Air MASK MASK MASK O2 Flow Rate 10.0 10.0 10.0 FiO2 21 10/06/24 10/06/24 10/06/24 10/06/24 13:30 13:35 13:40 13:45 Pulse 66 61 60 62 Resp 17 17 17 17 B/P (MAP) 145/73 158/67 160/61 139/67 Pulse Ox 100 100 100 100 O2 Delivery MASK Room Air Room Air Room Air O2 Flow Rate 10.0 10/06/24 10/06/24 16:00 20:18 Temp 97.5 98.1 Pulse 59 67 Resp 18 20 B/P (MAP) 152/79 149/76 Pulse Ox 96 94 O2 Delivery Room Air Room Air FiO2 21 Intake & Output (last 24hrs) 10/05/24 10/05/24 10/06/24 15:00 23:00 07:00 Intake Total 350 ml 215.0 ml Output Total 600 ml Balance 350 ml -385.0 ml LABS: Laboratory: Test 10/06/24 15:04 10/06/24 06:16 Range/Units Whole Blood Glucose 113 H 70-110 MG/DL White Blood Count 6.1 4.8-10.8 K/uL Red Blood Count 4.15 L 4.50-6.20 MIL/uL Hemoglobin 12.4 L 14.0-18.0 g/dL Hematocrit 36.5 L 42-54 % Mean Corpuscular Volume 88.0 79-99 fL Mean Corpuscular Hemoglobin 29.9 27.0-33.0 pg Mean Corpuscular Hemoglobin Concent 34.0 32.0-36.0 g/dL Red Cell Distribution Width 15.5 11.0-15.5 % Platelet Count 196 # 130-400 K/uL Mean Platelet Volume 9.7 7.5-10.5 fL Nucleated Red Blood Cells 0.0 0.0-0.19 % Sodium Level 139 136-145 mmol/L Potassium Level 3.8 3.5-5.1 mmol/L Chloride Level 103 101-111 mmol/L Carbon Dioxide Level 24 21-32 mmol/L Blood Urea Nitrogen 20 H 7-18 mg/dL Creatinine 1.5 H 0.5-1.3 mg/dL Glomerular Filtration Rate Calc 48 >90 mL/min Random Glucose 112 H 70-105 mg/dL Total Calcium 9.6 8.5-10.1 mg/dL Magnesium Level 1.90 1.80-2.40 mg/dL B-Type Natriuretic Peptide 106 H 0-100 pg/mL ASSESSMENT: Pneumonia. History of Esophageal varices. Hypertension. Chronic kidney disease. Chronic pain. PLAN: Continue Meropenem. Continue Protonix. Continue pain management. We will follow up on the cultures results. We will monitor electrolytes. Scheduled for an EGD for today. This case was reviewed and discussed with my supervising physician and the above assessment and plan was formulated and agreed upon. ATTESTATION BY PHYSICIAN I have seen and examined the patient. I reviewed the documentation, medical decision making, and treatment plan as noted by the mid-level provider above. I agree with the findings and plan of care. BRYCE RAMIREZ MD, MIRTA L [facility] Oct 06, 2024 21:33
--- NOTE | 2024-10-06 22:46 | NUR ---
PAIN PT CLAIMS OF PAINS ON HIS NECK AND BACK. MEDICATED WITH NORCO PO. KEPT COMFORTABLE IN BED. CALL LIGHT WITHIN REACH. WILL RE-ASSESS PT.
[2024-10-07] VITALS (8 sets, daily range): BP systolic 135–163; BP diastolic 68–77; PULSE 59–72; RESP 16–20; TEMP 97.8–98.3; O2SAT 95–97
--- NOTE | 2024-10-07 05:29 | NUR ---
PAIN PT CLAIMS OF PAINS TO THE BACK AND SHOULDERS. MEDICATED WITH NORCO PO. KEPT RESTED IN BED. WILL RE-ASSESS PT.
[2024-10-07] MEDS: ENOXAPARIN SODIUM 30 MG/0.3 ML SQ SCH (12:30)
[2024-10-07] MEDS: SUCRALFATE 1 GM TABLET PO SCH (13:00)
--- NOTE | 2024-10-07 21:41 | PN ---
INFECTIOUS DISEASE FOLLOWUP NOTE DATE OF SERVICE: 10/07/2024 SUBJECTIVE: The patient is seen and examined at bedside. No fevers and no chills. No bleeding tendencies. No diarrhea. No abdominal pain. Denied depression or suicidal ideation. ____. PHYSICAL EXAMINATION: VITAL SIGNS: Temperature 98.3. EYES: No icterus. Pupils equal and reactive. HENT: No oral thrush seen. Moist oral mucosa. NECK: Supple, no JVD or thyromegaly. LUNGS: Good air entry. Few crackles. CARDIOVASCULAR: S1 and S2, regular. ABDOMEN: Full, soft, nontender. Bowel sounds present CENTRAL NERVOUS SYSTEM: Awake, alert and oriented x 3. No focal deficits. SKIN: No rashes, no itchiness. LYMPHATIC: No peripheral lymphadenopathy BACK: No deformity. No pressure ulcer. HEMATOLOGIC: No bleeding or petechial lesions seen. ASSESSMENT: The patient is a 74-year-old male who presented with cough and fever. CURRENT PROBLEMS: Include: * Sepsis. * Aspiration pneumonia. * Esophageal stricture/stenosis status post dilatation. * Hypertension. * Acute on chronic renal failure. * Debility. PLAN: * Continue antibiotic. * Follow up cultures. * Continue antihypertensive. * Continue pain management. * Continue nutritional support. * Monitor electrolytes. * The patient will be followed up closely. TID: [id number] RECEIPT: [id number]
[2024-10-08 03:20] VITALS: BP 154/71; PULSE 66; RESP 16; TEMP 97.8
[2024-10-08 07:52] VITALS: BP 157/75; PULSE 65; RESP 20; TEMP 98.1
[2024-10-08 11:12] VITALS: BP 154/72; PULSE 62; RESP 20; TEMP 97.9
[2024-10-08] MEDS: 0.9%NACL 1000ML 1,000 ML IV SCH (13:04)
[2024-10-08 16:37] VITALS: BP 159/82; PULSE 67; RESP 20; TEMP 98.1
[2024-10-08 20:00] VITALS: BP 153/75; PULSE 61; RESP 20; TEMP 98.1; O2SAT 98
--- NOTE | 2024-10-08 23:05 | NUR ---
Nursing Note Pt stated he did not want to be hooked up to the NS any more. Pt stated "I know I need a midline, I want a midline"
--- NOTE | 2024-10-08 23:28 | NUR ---
Nursing Note Spoke with Dr. Bradford about pt's BP. Ordered Losartan 50mg daily PO and dose to be given now. no other orders at this time.
[2024-10-08] MEDS: LoSARTan 50 MG TABLET PO ONE (23:37)
--- NOTE | 2024-10-08 23:37 | NUR ---
Nursing Note Informed Pt of Dr. Bradford's orders Pt refused to take Losartan and stated him taking his Ambien will help, pt also stated that the medication has too many side effects so he will not take the medication.
[2024-10-09] VITALS (9 sets, daily range): BP systolic 152–177; BP diastolic 65–84; PULSE 58–71; RESP 16–20; TEMP 98.1–98.7; O2SAT 96–97
[2024-10-09 04:35] LABS: HEMATOCRIT 33.7 % (42-54); MEAN CORPUSCULAR HEMOGLOBIN 29.7 pg (27.0-33.0); MEAN CORPUSCULAR HGB CONC 33.5 g/dL (32.0-36.0); MEAN CORPUSCULAR VOLUME 88.7 fL (79-99); RED BLOOD CELL COUNT(AUTO) 3.8 MIL/uL (4.50-6.20); RED CELL DISTRIBUTION WIDTH 15.4 % (11.0-15.5)
[2024-10-09 04:54] LABS: CREATININE 1.2 mg/dL (0.5-1.3); MAGNESIUM 1.8 mg/dL (1.80-2.40); POTASSIUM 4.2 mmol/L (3.5-5.1)
--- NOTE | 2024-10-09 08:05 | PN ---
INFECTIOUS DISEASE FOLLOWUP NOTE DATE OF SERVICE: 10/08/2024 SUBJECTIVE: The patient is seen and examined at bedside today. The patient has no fever and no chills. No nausea, vomiting. No abdominal pain. Cough is improving. No palpitations or orthopnea. Tolerating orally. Denies dysuria but currently . PHYSICAL EXAMINATION: VITAL SIGNS: Temperature today is 97.6. EYES: No icterus. Pupils are equal and reactive. HENT: No oral thrush seen. Moist oral mucosa. NECK: Supple. No JVD or thyromegaly. LUNGS: Good air entry. No rales. No rhonchi. CARDIOVASCULAR: S1 and S2, regular. No murmur heard. ABDOMEN: Obese, soft, nontender. Bowel sound is present. CENTRAL NERVOUS SYSTEM: Awake, alert, and oriented x3. No focal deficits. SKIN: No rashes. No itchiness. LYMPHATIC: No peripheral lymphadenopathy. BACK: No deformity. No pressure ulcer. MUSCULOSKELETAL: No joint swelling, erythema, or tenderness. ASSESSMENT: A 74-year-old male admitted with fever and cough. CURRENT PROBLEMS: Include: * Sepsis. * Pneumonia. * Hypertension. * Chronic renal failure. * Esophageal stricture/stenosis status post and dilatation. PLAN: * Continue nutritional support. * Continue IV fluid. * Continue meropenem. * Continue pain management. * Continue GI prophylaxis. * Monitor electrolytes. * The patient will be followed up closely. TID: [id number] RECEIPT: [id number]
[2024-10-09] MEDS ORDERED: PoTASSium chl 10% ELIXIR 20MEQ 20 MEQ/15 ML UDCUP PO PRN (08:30)
[2024-10-09] MEDS ORDERED: PoTASSium chloRIDE 20MEQ/100ML 100 ML IV PRN (08:30)
[2024-10-09] MEDS: LoSARTan 50 MG TABLET PO SCH (08:33)
--- NOTE | 2024-10-09 10:02 | NUR ---
MG MAGNESIUM IS 1.8. PT IS RUNNING MERREM ON LEFT WRIST. PT REFUSED FOR A 2ND IV SITE AT THIS TIME. STATES TO WANT TO WAIT FOR MERREM TO FINISH AND THEN TO ADMINISTER MG.
--- NOTE | 2024-10-09 14:37 | PN ---
INFECTIOUS DISEASE PROGRESS NOTE Date of Service: Oct 09, 2024 SUBJECTIVE: During rounding today patient is sitting up on the bedside chair having lunch. Patient is afebrile, temperature is 98.2. Renal function improved, BUN is 22 and creatinine of 1.2. Patient reported that his psychiatrist Messed up his prescription and he does not have psychotropic medications available at home and stated that if he gets discharged today he will come right back to the emergency room. We will continue on Meropenem 1 g IV every 12 hours. PHYSICAL EXAM EYES: Anicteric. Pupils equal and reactive. HENT: No oral thrush seen, moist Oral mucosa. NECK: Supple, no JVD or thyromegaly. LUNGS: Good air entry. No rales, no rhonchi.Cough CARDIOVASCULAR: S1, S2 regular. No murmur heard. ABDOMEN: Soft, non tender, bowel sounds present, no organomegaly CENTRAL NERVOUS SYSTEM: Awake, alert, oriented x 3. SKIN: No rashes, no swelling. LYMPHATICS: No peripheral lymphadenopathy MUSCULOSKELETAL: No joint swelling, erythema or tenderness. EXTREMITIES: No cyanosis or clubbing. BACK: No deformity, no pressure ulcer. GENITOURINARY: No dysuria or hematuria. Vital Sign (Last 12 Hours) 10/09/24 10/09/24 10/09/24 10/09/24 04:00 07:39 08:31 11:20 Temp 98.1 98.2 98.2 Pulse 58 60 71 67 Resp 20 16 18 B/P (MAP) 157/77 177/78 160/78 156/75 Pulse Ox 98 97 97 O2 Delivery Room Air Room Air Room Air Intake & Output (last 24hrs) 10/08/24 10/08/24 10/09/24 15:00 23:00 07:00 Intake Total 1250 ml Output Total 900 ml Balance 350 ml LABS: Laboratory: Test 10/09/24 04:20 Range/Units White Blood Count 6.0 4.8-10.8 K/uL Red Blood Count 3.80 L 4.50-6.20 MIL/uL Hemoglobin 11.3 L 14.0-18.0 g/dL Hematocrit 33.7 L 42-54 % Mean Corpuscular Volume 88.7 79-99 fL Mean Corpuscular Hemoglobin 29.7 27.0-33.0 pg Mean Corpuscular Hemoglobin Concent 33.5 32.0-36.0 g/dL Red Cell Distribution Width 15.4 11.0-15.5 % Platelet Count 192 130-400 K/uL Mean Platelet Volume 10.2 7.5-10.5 fL Nucleated Red Blood Cells 0.0 0.0-0.19 % Sodium Level 137 136-145 mmol/L Potassium Level 4.2 3.5-5.1 mmol/L Chloride Level 103 101-111 mmol/L Carbon Dioxide Level 25 21-32 mmol/L Blood Urea Nitrogen 22 H 7-18 mg/dL Creatinine 1.2 0.5-1.3 mg/dL Glomerular Filtration Rate Calc 63 >90 mL/min Random Glucose 105 70-105 mg/dL Total Calcium 9.1 8.5-10.1 mg/dL Magnesium Level 1.80 1.80-2.40 mg/dL ASSESSMENT: Pneumonia. History of Esophageal varices, status post EGD on 10/06/2024. Hypertension. Chronic kidney disease. Chronic pain. PLAN: Continue Meropenem. Continue Protonix. Continue pain management. We will monitor electrolytes. Discharge planning for tomorrow. This case was reviewed and discussed with my supervising physician and the above assessment and plan was formulated and agreed upon. ATTESTATION BY PHYSICIAN I have seen and examined the patient. I reviewed the documentation, medical decision making, and treatment plan as noted by the mid-level provider above. I agree with the findings and plan of care. BRYCE RAMIREZ MD, MIRTA L [facility] Oct 09, 2024 14:37
[2024-10-09] MEDS: MAGNESIUM 2GM PREMIX 50ML 50 ML IV PRN (15:21)
--- NOTE | 2024-10-09 16:54 | NUR ---
IV PT STATES DISCOMFORT ON IV SITE. NO REDNESS OR LEAKING NOTED. PT DOES NOT WANT NEW IV AT THIS TIME. WANTS FLUIDS DISCONNECTED. TEACHING GIVEN ON MAGNESIUM AND FLUIDS. PT STATES TO NOT WANT TO BE CONNECTED TO FLUIDS AT THIS TIME.
--- NOTE | 2024-10-09 18:55 | NUR ---
MEDS VIA TELEPHONE. ORDERED TO RESUME HOME MEDS. DC LOSARTAN. AND HYDRALAZINE 10MG IV Q8HR PRN >150
[2024-10-09] MEDS ORDERED: hydrALAZine 20MG/ML VIAL IV PRN (19:30)
[2024-10-09] MEDS: HYDROcodone/acetaMINOPHEN 10/325 MG TAB PO PRN (23:50)
[2024-10-10] VITALS: BP 169/83; PULSE 71; RESP 20; TEMP 98.3
[2024-10-10 04:00] VITALS: BP 165/80; PULSE 68; RESP 20; TEMP 98.6
[2024-10-10 07:39] VITALS: BP 153/75; PULSE 66; RESP 18; TEMP 98.2
[2024-10-10 09:07] VITALS: O2SAT 98
[2024-10-10] MEDS: LISINOPRIL 20 MG TABLET PO SCH (09:07)
[2024-10-10 11:35] VITALS: BP 165/80; PULSE 65; RESP 18; TEMP 98.2
[2024-10-10] MEDS: cloNIDine HCL 0.2 MG TABLET PO ONE (12:21)
[2024-10-10 14:33] VITALS: BP 137/67; PULSE 65; RESP 17
--- NOTE | 2024-10-10 14:54 | DS ---
Discharge Summary Hospital Course This is a 74-year-old male patient with a history of hypertension, frequent pneumonia, dizziness, psychiatric disorder and depression who presented to the hospital with fever and productive cough of greenish sputum. T-max in the ER was 102.5. The patient was also found with pulse of 105. The patient had recurrent admission for pneumonia due to aspiration. The patient refused PEG placement as recommended by Gastroenterology. No dysuria or urinary frequency. Denies sick contact. Chest x-ray shows bilateral infiltrates. Patient was started on Meropenem. GI was consulted and patient underwent an EGD on 10/06/2024 with findings of acute gastritis, esophageal ulcer with a bleeding, hiatal hernia and LA grade D reflux esophagitis. Today patient is afebrile, temperature is 98.2. No reports of nausea or vomiting. Patient will be discharged to home today. FINAL DISCHARGE DIAGNOSIS: Pneumonia. History of Esophageal varices, status post EGD on 10/06/2024. Hypertension. Chronic kidney disease. Chronic pain. PLAN: Discharge patient to home today. Continue same home medications. No new prescriptions. Follow up with PCP in 3-5 days. This case was reviewed and discussed with my supervising physician and the above assessment and plan was formulated and agreed upon. ATTESTATION BY PHYSICIAN I have seen and examined the patient. I reviewed the documentation, medical deci diya making, and treatment plan as noted by the mid-level provider above. I agree with the findings and plan of care. BRYCE RAMIREZ MD, [facility] Oct 10, 2024 14:54
--- NOTE | 2024-10-10 16:09 | NUR ---
DISCHARGE PATIENTS HOME MEDS PICKED UP FROM PHARMACY AND GIVEN BACK TO PATIENT PRIOR TO DISCHARGE
== END 2024-10-10 16:21 | disposition home or self-care (01) | DRG 871 ==
LOC: EDH 16:38 → EDHIP 18:49 → 3DH 22:56 → 3AH 10-07 19:34
PROVIDERS: ADMIT Internal Medicine Infectious Disease; ATTEND Internal Medicine Infectious Disease
PROC: 0DB58ZX Excision of Esophagus, Via Natural or Artificial Opening Endoscopic, Diagnostic (ICD-10-PCS; principal; 2024-10-06)
PROC: 0DB78ZX Excision of Stomach, Pylorus, Via Natural or Artificial Opening Endoscopic, Diagnostic (ICD-10-PCS; 2024-10-06)
PROC: 0D738ZZ Dilation of Lower Esophagus, Via Natural or Artificial Opening Endoscopic (ICD-10-PCS; 2024-10-06)
DX: A41.9 Sepsis, unspecified organism (principal); J69.0 Pneumonitis due to inhalation of food and vomit; N17.9 Acute kidney failure, unspecified; K22.10 Ulcer of esophagus without bleeding; K29.00 Acute gastritis without bleeding; K21.00 Gastro-esophageal reflux disease with esophagitis, without bleeding; I12.9 Hypertensive chronic kidney disease with stage 1 through stage 4 chronic kidney disease, or unspecified chronic kidney disease; F32.A Depression, unspecified; I25.10 Atherosclerotic heart disease of native coronary artery without angina pectoris; E78.00 Pure hypercholesterolemia, unspecified; G89.29 Other chronic pain; K22.0 Achalasia of cardia; K22.2 Esophageal obstruction; N18.9 Chronic kidney disease, unspecified; Z53.29 Procedure and treatment not carried out because of patient's decision for other reasons; Z82.49 Family history of ischemic heart disease and other diseases of the circulatory system; Z87.11 Personal history of peptic ulcer disease; Z87.19 Personal history of other diseases of the digestive system; Z91.199 Patient's noncompliance with other medical treatment and regimen due to unspecified reason
CPT/HCPCS: 36415; 43239; 43248; 71045; 80048; 82948; 83605; 83735; 83880; 84145; 85025; 85027; 87040; 87071; 87205; 93005; 94640; 96365; 99291; A4606; G0378; J0360; J0456; J0696; J1650; J2003; J2185; J2704; J3475; J7030; J7120; A4215; A4222; A4223; A4620; J3490

== ENCOUNTER 2025-02-10 11:26 | Emergency (ER) | payer OTHER, MEDICARE ==
[~2025-02-10] VITALS: Ht 170.2 cm; Wt 72.6 kg
[~2025-02-10 11:26] MED LIST changes: +CLON1PAT14 TD; -CLON1PAT41 TD; +FERR-82 PO; -LISI10TA24 PO; -NALO4SPR22 EN; +OMEP20TA20 PO
--- NOTE | 2025-02-10 11:55 | ERN ---
ED Note History of Present Illness Stated Complaint: VOMITING Chief Complaint: Nausea,Vomiting,Diarrhea Time Seen by MD: 11:43 Dictation: PATIENT IS A 74-YEAR-OLD MALE COMING IN TODAY WITH COMPLAINTS OF I HAVE PNEUMONIA AND SEPSIS. I SIGNED OUT HERE SEVERAL DAYS AGO BECAUSE THEY WERE NOT TREAT HIM WELL. HE DID NOT GO SEE HIS PRIMARY CARE DOCTOR, , NOW WISHES TO COME BACK AND BE TREATED. HE IS AFEBRILE AT THE PRESENT TIME. STATES HE HAS HAD NAUSEA VOMITING. Allergies: Coded Allergies: trazodone (Unverified Allergy, Mild, DIZZINESS, 07/19/20) AMS Home Meds Reported Medications Omeprazole (Omeprazole) 20 Mg Tablet.dr, 20 MG PO BID, TAB 02/01/25 Ferrous Sulfate (Iron) 325 Mg (65 Mg Iron) Tablet, 325 MG PO DAILY, TAB 11/03/24 Fluticasone/Umeclidin/Vilanter (Trelegy Ellipta 100-62.5-25) 100-62.5 Blst.w. dev, 1 PUFF PO DAILY 10/06/24 Clonidine (Clonidine) 0.3 Mg/24 Hour Patch.tdwk, 1 EACH TD Q5D 10/04/24 Hydrocodone/Acetaminophen (Hydrocodon-Acetaminophn 10-325) 10 Mg-325 Mg Tablet, 1 TAB PO QIDP PRN for pain for 30 Days, #120 TAB 0 Refills 10/04/24 Lorazepam (Ativan) 2 Mg Tablet, 2 MG PO Q8HRS, TAB 05/11/24 Lisinopril (Lisinopril) 20 Mg Tablet, 1 TAB PO BID for 30 Days, #30 TAB 0 Refills 05/11/24 Sodium Bicarbonate (Sodium Bicarbonate) 650 Mg Tablet, 1 TAB PO DAILY for indigestion for 30 Days, #60 TAB 0 Refills 05/01/24 Sucralfate (Sucralfate) 1 Gram Tablet, 1 TAB PO QID for 30 Days, #120 TAB 0 Refills 05/01/24 Amlodipine Besylate (Amlodipine Besylate) 10 Mg Tablet, 1 TAB PO DAILY for 30 Days, #30 TAB 0 Refills 05/01/24 Pantoprazole Sodium (Pantoprazole Sodium) 40 Mg Tablet.dr, 1 TAB PO BID for 30 Days, #30 TAB 0 Refills 05/01/24 Zolpidem Tartrate (Ambien) 10 Mg Tablet, 1 TAB PO HS PRN for sleep for 30 Days, #30 TAB 0 Refills 05/01/24 Past Medical History Past Medical History: Hypertension, Renal Disese, Seizure Additional Past Medical Hx: PULMONARY EDEMA Surgical History: Other Surgical History Other: elbow surgery Family History: HTN Social History: Smokers, Negative, Lives alone RN Note Reviewed/Agreed w/PFSH: Yes Review of System Dictation CONSTITUTIONAL: Negative except for HPI GB W HEAD/FACE: Negative except for HPI EENT: Negative except for HPI RESPIRATORY: Negative except for HPI GASTROINTESTINAL/ABDOMINAL: Negative except for HPI nausea vomiting GENITOURINARY: Negative except for HPI MUSCULOSKELETAL: Negative except for HPI INTEGUMENTARY: Negative except for HPI NEUROLOGICAL/PSYCH: Negative except for HPI HEMATOLOGIC/LYMPHATIC: Negative except for HPI All Systems Negative, Except as noted above. 13 point review of systems assessed and all negative except for above. Initial Vital Sign VS Vital Signs Date Time Temp Pulse Resp B/P (MAP) Pulse Ox O2 Delivery O2 Flow Rate FiO2 02/10/25 11:29 98.6 100 16 171/73 95 Room Air 02/10/25 11:30 0 21 Physical Exam Dictation Vital Signs reviewed General Appearance: Alert, oriented x 3, mild acute distress. Head and Face: non-traumatic. Eyes: PERRL, pink conjunctivas, eyelid no trauma, anterior chamber with arcus senilis. Ears: Pinnas intact and no signs of trauma or erythema ear canals clear and no discharge TM no erythema Nose: No discharge, no bleeding. Oropharynx: Mouth normal, tongue pink, pharynx clear,no erythema, tonsils no exudates, no abscesses noted, mucous membrane moist Neck: Supple, non-tender, no thyromegaly, no masses, no JVD, no bruits Breast:Deferred Chest:No tenderness, no crepitus, no paradoxical movement, no retractions Lungs:Clear, well-ventilated, symmetric, no rales, no wheezing, no rhonchi, no stridor, good breath sounds bilaterally Heart: Regular rate, regular rhythm, no murmur, no gallops Vascular: no peripheral edema, Abdomen: Soft, positive bowel sounds, nondistended, no guarding, nontender, no rebound, no masses no hepatomegaly, no splenomegaly, no Adrian's sign, no hernias. No focal tenderness Rectal: Deferred Genital: Deferred Neurological: Normal speech, motor function intact, sensory function intact Musculoskeletal: Neck nontender, full range of motion, back nontender, full range of motion, Extremities: nontender, full range of motion Skin: Color pink, dry, no turgor, no rash, no lacerations, no abrasions, no contusions. Lymphatic: Deferred Results (Laboratory/Radiology) Laboratory/Radiology Laboratory Tests Test 02/10/25 12:09 White Blood Count 5.9 K/uL (4.8-10.8) Red Blood Count 3.71 MIL/uL (4.50-6.20) L Hemoglobin 11.4 g/dL (14.0-18.0) L Hematocrit 34.9 % (42-54) L Mean Corpuscular Volume 94.1 fL (79-99) Mean Corpuscular Hemoglobin 30.7 pg (27.0-33.0) Mean Corpuscular Hemoglobin Concent 32.7 g/dL (32.0-36.0) Red Cell Distribution Width 13.1 % (11.0-15.5) Platelet Count 378 K/uL (130-400) Mean Platelet Volume 9.2 fL (7.5-10.5) Immature Granulocyte % (Auto) 1.9 % (0-1) H Neutrophils (%) (Auto) 72.7 % (40.0-77.0) Lymphocytes (%) (Auto) 17.9 % (21.0-51.0) L Monocytes (%) (Auto) 6.7 % (3.0-13.0) Eosinophils (%) (Auto) 0.5 % (0.0-8.0) Basophils (%) (Auto) 0.3 % (0.0-5.0) Neutrophils # (Auto) 4.3 K/uL (1.8-7.7) Lymphocytes # (Auto) 1.1 K/uL (1.0-4.8) Monocytes # (Auto) 0.4 K/uL (0.1-1.0) Eosinophils # (Auto) 0.03 K/uL (0.00-0.70) Basophils # (Auto) 0.02 K/uL (0.00-0.20) Absolute Immature Granulocyte (auto 0.11 K/uL (0-1) Nucleated Red Blood Cells 0.0 % (0.0-0.19) Sodium Level 142 mmol/L (136-145) Potassium Level 4.3 mmol/L (3.5-5.1) Chloride Level 105 mmol/L (101-111) Carbon Dioxide Level 26 mmol/L (21-32) Blood Urea Nitrogen 24 mg/dL (7-18) H Creatinine 1.4 mg/dL (0.5-1.3) H Glomerular Filtration Rate Calc 52 mL/min (>90) Random Glucose 109 mg/dL (70-105) H Lactic Acid Level 1.3 mmol/L (0.8-2.5) Total Calcium 9.4 mg/dL (8.5-10.1) Troponin I High Sensitivity 7 ng/L (4-75) B-Type Natriuretic Peptide 49 pg/mL (0-100) 1420/CHEST X-RAY CARDIOMEGALY ONLY NO EFFUSIONS NO INFILTRATES Labs Reviewed?: Yes EKG Comment: 1154/EKG sinus rhythm/heart rate 88/left atrial enlargement/axis normal ED Course ED Course Orders Procedure Category Date Status Time Blood Cult ELAN 02/10/25 In Process 11:52 Lactic Acid LAB 02/10/25 Complete 11:52 Covid19 (Sars Antigen LAB 02/10/25 Logged Rapid) 11:52 Cbc With Differential LAB 02/10/25 Complete 11:52 Troponin I High LAB 02/10/25 Complete Sensitivity 11:52 Urinalysis Profile LAB 02/10/25 Logged 11:52 12 Lead Ekg Tracing- EKG 02/10/25 Complete Technical 11:52 Chest 1vw RAD 02/10/25 Resulted 11:52 Basic Metabolic Panel LAB 02/10/25 Complete 11:52 B-Type Natriuretic LAB 02/10/25 Complete Peptide 11:52 0.9%Nacl 1000ml (Ns PHA 02/10/25 Complete 1000ml) 12:30 Ondansetron 4mg Inj PHA 02/10/25 Complete (Zofran 4mg Inj) 12:30 Current Medications Medications (Trade) Dose Ordered Sig/Annalee Route PRN Reason Start Time Stop Time Status Last Admin Dose Admin Ondansetron HCl (zoFRAN 4MG INJ) 4 mg ONCE ONCE IVP 02/10/25 12:30 02/10/25 12:31 DC 02/10/25 12:16 Sodium Chloride 1,000 ml @ 0 mls/hr ONCE ONCE IV 02/10/25 12:30 02/10/25 12:31 DC 02/10/25 12:16 Vital Signs Date Time Temp Pulse Resp B/P (MAP) Pulse Ox O2 Delivery O2 Flow Rate FiO2 02/10/25 11:30 98.6 100 16 171/73 95 Room Air* 0 21 02/10/25 11:29 98.6 100 16 171/73 95 Room Air 1420/NO NAUSEA VOMITING AT THIS TIME. PATIENT HAS NO SEPSIS NO ELECTROLYTE IMBALANCE NO DEHYDRATION. HEART Score Response (Comments) Value EKG: Repolarization changes 1 Age: > 65yrs (+2) 2 Risk Factors: 1-2 risk factors (+1) 1 Initial Troponin: Normal limit (0) 0 Total 4 Medical Decision Making MDM MDM: DIFFERENTIAL DIAGNOSIS: PNEUMONIA/BRONCHITIS/ELECTROLYTE IMBALANC E/DEHYDRATION/SEPSIS/UTI RATIONALE: TESTS CONSIDERED AND ORDERED SECONDARY TO SHARED DECISION MAKING INCLUDE: RADIOLOGY/LABS/EKG PREVIOUS OUTSIDE RECORDS REVIEWED: OLD ER VISITS. RISK OF COMPLICATION AND/OR MORBIDITY OR MORTALITY OF PATIENT MANAGEMENT: NONE MEDICATIONS-PER MEDICATION RECONCILIATION NEED FOR HOSPITALIZATION: PATIENT DOES NOT MEET CRITERIA FOR HOSPITALIZATION. NONE NEED FOR EMERGENCY MAJOR/MINOR SURGERY: NO THERE ARE NO SOCIAL CONCERNS WITH THIS PATIENT. PRESCRIPTION DRUG MANAGEMENT ZOFRAN/HYDRATION INSTRUCTIONS PRESCRIPTIONS WILL INCLUDE SYMPTOMATIC CARE PATIENT'S PRIOR EXTERNAL MEDICAL RECORDS FROM OTHER ER VISITS WERE REVIEWED BY ME INDICATED. PRIOR TESTING AND RESULTS FROM PREVIOUS VISITS WERE REVIEWED. PRIOR TESTS WERE TAKEN INTO ACCOUNT WITH MEDICAL DECISION MAKING AND RESOURCE UTILIZATION, INDEPENDENT HISTORIAN/HISTORIANS WERE USED TO OBTAIN COMPLETE M EDICAL HISTORY. I INDEPENDENTLY INTERPRETED THE TEST THAT WERE PERFORMED, RESULTS WERE REVIEWED BY ME AND CONSIDERED FINDINGS ON RADIOLOGY IF ORDERED. MEDICAL MANAGEMENT AND EXAMINATION INTERPRETATION DISCUSSIONS WERE HAD BY ME WITH OTHER QUALIFIED HEALTHCARE PROFESSIONALS INDICATED FOR THE PATIENT'S CARE. DX & DISP Disposition: Discharge Departure Impression: Primary Impression: Nausea & vomiting Additional Impressions: Stage 3 chronic kidney disease, Cardiomegaly Condition: Stable Scripts Ondansetron (Ondansetron Odt) 4 Mg Tab.rapdis 4 MG PO Q6HPRN PRN for nausea, #16 TAB 0 Refills Prov: CLAUDE KRISHNAN 02/10/25 Additional Instructions: FOLLOW-UP WITH PRIMARY CARE PROVIDER IN 1 TO 2 DAYS. TAKE MEDICATIONS DIRECTED HERE IN THE EMERGENCY ROOM. OKAY TO CONTINUE HOME MEDICATIONS UNLESS OTHERWISE DISCUSSED DURING YOUR VISIT IN THE EMERGENCY ROOM TODAY. RETURN TO YOUR NEAREST EMERGENCY ROOM IF SYMPTOMS WORSEN OR IF THERE IS NO IMPROVEMENT. CALL 911 IF YOU NEED IMMEDIATE ASSISTANCE. TAKE TYLENOL OR MOTRIN [id number] NEEDED AND IF NO CONTRAINDICATIONS ARE PRESENT. INCREASE ORAL HYDRATION. A WOUND CULTURE OR URINE CULTURE WAS ORDERED HERE IN THE EMERGENCY ROOM DEPARTMENT PLEASE FOLLOW-UP WITH PRIMARY CARE PROVIDER AND ADVISE THEM TO GET REPEAT PORTS FROM OUR FACILITY. IF YOU HAD ANY EDUARD WRAP/SPLINTS THAT WERE APPLIED HERE, PLEASE DO NOT REMOVE THEM UNTIL YOU SEE YOUR PRIMARY CARE OR SPECIALTY. TAKE ZOFRAN DIRECTED FOR NAUSEA CLEAR LIQUID FOR THE NEXT18 HOURS BEEN, SLOWLY TOMORROW TO REGULAR. SEE YOUR PRIMARY CARE DOCTOR ON FOLLOW UP Referrals: MELONY NICHOLS MD (PCP) Time of Disposition: 14:21 I have reviewed the case, and I agree with, Diagnosis and Plan CLAUDE KRISHNAN [employer]ODUCTION TEAM MEMBER Feb 10, 2025 11:55
[2025-02-10 12:14] LABS: IMMATURE GRANULOCYTE ABSOLUTE 0.11 K/uL (0-1); NUCLEATED RED BLOOD CELLS 0.0 % (0.0-0.19); PLATELET COUNT (AUTO) 378 K/uL (130-400); RED BLOOD CELL COUNT(AUTO) 3.71 MIL/uL (4.50-6.20); RED CELL DISTRIBUTION WIDTH 13.1 % (11.0-15.5); WHITE BLOOD COUNT (AUTO) 5.9 K/uL (4.8-10.8)
[2025-02-10] MEDS: 0.9%NACL 1000ML 1,000 ML IV ONE (12:16)
[2025-02-10 12:35] LABS: CREATININE 1.4 mg/dL (0.5-1.3); GLOMERULAR FILTR. RATE CALC 52.0 mL/min (>90); GLUCOSE,RANDOM 109.0 mg/dL (70-105); SODIUM SERUM 142.0 mmol/L (136-145); UREA NITROGEN, BLOOD 24.0 mg/dL (7-18)
--- NOTE | 2025-02-10 12:59 | HMCIMG ---
EXAM: CHEST RADIOGRAPH, SINGLE VIEW Technique: A single frontal view of the chest was obtained. Single-projection technique limits assessment of small pneumothoraces, small pleural effusions, and subtle parenchymal abnormalities. Clinical Information: Cough and shortness of breath. Comparison: Chest radiograph, single view, February 01, 2025 at 12:10 EDT. Findings: The left mid and lower lung zones demonstrate air-space opacities, unchanged from the prior examination. No pleural effusion is identified on this single projection. No pneumothorax is detected. The cardiac silhouette is mildly enlarged. Aortic arch calcification is present. No aggressive osseous lesion is identified; degenerative changes are noted in the thoracic spine. Impression: * Stable left mid and lower lung air-space opacities compared with February 01, 2025, which may reflect persistent pneumonia and/or atelectasis; correlate clinically. * Mild cardiomegaly. * Aortic atherosclerosis (aortic arch calcification). * No pleural effusion or pneumothorax identified on this single-view study. /[place]
--- NOTE | 2025-02-10 14:05 | EKG ---
[facility] Test Date: 2025-02-10 Test Time: 11:54:30 Pat Name: PADMA BALDERRAMA Department: ED Room: Gender: M Fisher Diving: [id number] : 1950 Requested By: CLAUDE KRISHNAN Order Number: [id number] Reading MD: Mela Jett Measurements Intervals [place] Rate: 88 P: 49 FL: 170 QRS: 31 QRSD: 83 T: 61 QT: 377 QTc: 457 Interpretive Statements Sinus rhythm Probable left atrial enlargement Compared to ECG 02/01/2025 11:52:07 Sinus tachycardia no longer present Myocardial infarct finding no longer present Electronically Signed On 02-11-2025 16:36:19 CDT by Mela Jett Please click the below link to view image of tracing.
[2025-02-10] MEDS ORDERED: ONDA-243 PO (14:22)
[2025-02-10] MEDS: PROMETHAZINE HCL 25 MG/ML 1ML AMPULE IM ONE (15:13)
--- NOTE | 2025-02-10 16:23 | NUR ---
PT WAS ASSISTED ONTO HIS OWN CLOTHING AND ASSISTED ONTO WHEELCHAIR. PT WAS TAKEN OUT TO LOBBY WITH HIS PHONE, DUFFEL, AND SHOES.
[2025-02-10 16:25] VITALS: BP 160/70; PULSE 100; RESP 16; TEMP 98.6; O2SAT 95
== END 2025-02-10 16:27 | disposition home or self-care (01) ==
LOC: EDH 11:26
DX: R11.2 Nausea with vomiting, unspecified (principal); I13.10 Hypertensive heart and chronic kidney disease without heart failure, with stage 1 through stage 4 chronic kidney disease, or unspecified chronic kidney disease; N18.30 Chronic kidney disease, stage 3 unspecified; F17.200 Nicotine dependence, unspecified, uncomplicated; Z88.8 Allergy status to other drugs, medicaments and biological substances; Z79.899 Other long term (current) drug therapy; Z20.822 Contact with and (suspected) exposure to COVID-19
CPT/HCPCS: 99285; 96374; 96361; 71045; 87426; 84484; 80048; 83880; 85025; 87040 ×2; 83605; 36415; 96372; 93005; J7030; J2550; J2405

== ENCOUNTER 2025-02-12 09:31 | Emergency (ER) | payer OTHER, MEDICARE ==
[~2025-02-12] VITALS: Ht 165.1 cm; Wt 72.6 kg
[~2025-02-12 09:31] MED LIST changes: +ONDA-243 PO
[2025-02-12 09:51] LABS: IMMATURE GRANULOCYTE ABSOLUTE 0.10 K/uL (0-1); NUCLEATED RED BLOOD CELLS 0.0 % (0.0-0.19); PLATELET COUNT (AUTO) 417 K/uL (130-400); RED BLOOD CELL COUNT(AUTO) 3.68 MIL/uL (4.50-6.20); RED CELL DISTRIBUTION WIDTH 13.1 % (11.0-15.5); WHITE BLOOD COUNT (AUTO) 10.6 K/uL (4.8-10.8)
[2025-02-12 10:01] LABS: CREATININE 1.6 mg/dL (0.5-1.3); GLOMERULAR FILTR. RATE CALC 45.0 mL/min (>90); GLUCOSE,RANDOM 102.0 mg/dL (70-105); SODIUM SERUM 138.0 mmol/L (136-145); UREA NITROGEN, BLOOD 30.0 mg/dL (7-18)
[2025-02-12 10:06] LABS: CREATINE KINASE, TOTAL 110.0 U/L (21-232)
[2025-02-12] MEDS ORDERED: Solu-medROL 40MG VIAL IVP ONE (10:30)
--- NOTE | 2025-02-12 10:43 | ERN ---
General Chief Complaint: Mechanical Fall Stated Complaint: FALL Time Seen by MD: 10:03 History of Present Illness Initial Comments 74-year-old male patient with medical history of hypertension, recurrent aspiration pneumonia, esophageal stenosis/stricture with multiple EGD with dilatation and who refuses PEG tube placement presented with a chief complaint of pain in right lateral chest post fall. He said he slipped and fell on the ground without loss of consciousness and dizziness. He hit the right side of his body on the ground. He did not complain of chest pain, abdominal pain, nausea, vomiting, dizziness. 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/25 Reported Medications Omeprazole (Omeprazole) 20 Mg Tablet.dr, 20 MG PO BID, TAB 02/01/25 Ferrous Sulfate (Iron) 325 Mg (65 Mg Iron) Tablet, 325 MG PO DAILY, TAB 11/03/24 Fluticasone/Umeclidin/Vilanter (Trelegy Ellipta 100-62.5-25) 100-62.5 Blst.w.dev, 1 PUFF PO DAILY 10/06/24 Clonidine (Clonidine) 0.3 Mg/24 Hour Patch.tdwk, 1 EACH TD Q5D 10/04/24 Hydrocodone/Acetaminophen (Hydrocodon-Acetaminophn 10-325) 10 Mg-325 Mg Tablet, 1 TAB PO QIDP PRN for pain for 30 Days, #120 TAB 0 Refills 10/04/24 Lorazepam (Ativan) 2 Mg Tablet, 2 MG PO Q8HRS, TAB 05/11/24 Lisinopril (Lisinopril) 20 Mg Tablet, 1 TAB PO BID for 30 Days, #30 TAB 0 Refills 05/11/24 Sodium Bicarbonate (Sodium Bicarbonate) 650 Mg Tablet, 1 TAB PO DAILY for i ndigestion for 30 Days, #60 TAB 0 Refills 05/01/24 Sucralfate (Sucralfate) 1 Gram Tablet, 1 TAB PO QID for 30 Days, #120 TAB 0 Refills 1/13/25 Amlodipine Besylate (Amlodipine Besylate) 10 Mg Tablet, 1 TAB PO DAILY for 30 Days, #30 TAB 0 Refills 05/01/24 Pantoprazole Sodium (Pantoprazole Sodium) 40 Mg Tablet.dr, 1 TAB PO BID for 30 Days, #30 TAB 0 Refills 05/01/24 Zolpidem Tartrate (Ambien) 10 Mg Tablet, 1 TAB PO HS PRN for sleep for 30 Days, #30 TAB 0 Refills 05/01/24 Past Medical History Past Medical History: COPD, Hypertension, Renal Disese, Seizure Medical History Other: PULMONARY EDEMA Past Surgical History: Other Surgical History Other: elbow surgery Family History Family History: HTN Social History Social History: Smokers, Negative, Lives alone ROS Dictation CONSTITUTIONAL: No chills, no fever, no diaphoresis, no malaise. HEAD/FACE: No signs of trauma. EENT: No eye pain, no blurred vision, no tearing, no ear pain, no ear discharge, no nose pain, no throat pain, RESPIRATORY: Occasional cough present, no orthopnea, SOB, no stridor, wheezing. CARDIOVASCULAR: No chest pain, no edema, no palpitations, no syncope. GASTROINTESTINAL/ABDOMINAL: No abdominal pain, no constipation, no diarrhea, no nausea, no vomiting. GENITOURINARY: No abnormal discharge, no dysuria, no frequent urination, no hematuria. No complaints of pain in the genitals. MUSCULOSKELETAL: Right lateral chest wall pain present INTEGUMENTARY: No change in color, no change in hair/nails, no dryness, no lesion, no lumps, no rash. NEUROLOGICAL/PSYCH: No anxiety, HEMATOLOGIC/LYMPHATIC: Not anemic, no history of blood clots, no apparent bleeding, no bruising, glands not swollen. All Systems Negative, Except as Noted. Physical Exam Physical Exam Dictation GENERAL APPEARANCE: Alert, oriented x3, no acute distress, HEAD AND FACE: Non-traumatic. EYES: PERRL, pink conjunctivas, eyelid no trauma, anterior chamber clear. EARS: Pinnas intact and no signs of trauma or erythema. Ear canals clear and no discharge. TMs no erythema. NOSE: No discharge, no bleeding. OROPHARYNX: Mouth normal, Pharynx clear, no erythema. Mucous membrane moist. NECK: Supple, non-tender, no thyromegaly, no masses, no JVD, no bruits. BREAST: Deferred. CHEST: Tenderness appreciated on the right lateral chest wall. LUNGS: Bilateral crepitations present HEART: Regular rate, regular rhythm, no murmur, no gallops. VASCULAR: No peripheral edema. ABDOMEN: Soft, positive bowel sounds, nondistended, no guarding, nontender, no rebound RECTAL: Deferred. GENITAL: Deferred. NEUROLOGICAL: Normal speech, gross motor function intact, gross sensory function intact. MUSCULOSKELETAL: Neck nontender, full range of motion, back nontender, full range of motion. EXTREMITIES: Nontender, full range of motion. SKIN: Color pink, dry, no turgor, no rash, no lacerations, no abrasions, no contusions. LYMPHATICS: Deferred. Results Laboratory and Microbiology Lab and Micro Result Laboratory Tests Test 02/12/25 09:46 White Blood Count 10.6 K/uL (4.8-10.8) Red Blood Count 3.68 MIL/uL (4.50-6.20) L Hemoglobin 11.3 g/dL (14.0-18.0) L Hematocrit 34.5 % (42-54) L Mean Corpuscular Volume 93.8 fL (79-99) Mean Corpuscular Hemoglobin 30.7 pg (27.0-33.0) Mean Corpuscular Hemoglobin Concent 32.8 g/dL (32.0-36.0) Red Cell Distribution Width 13.1 % (11.0-15.5) Platelet Count 417 K/uL (130-400) H Mean Platelet Volume 8.9 fL (7.5-10.5) Immature Granulocyte % (Auto) 0.9 % (0-1) Neutrophils (%) (Auto) 66.7 % (40.0-77.0) Lymphocytes (%) (Auto) 21.4 % (21.0-51.0) Monocytes (%) (Auto) 9.8 % (3.0-13.0) Eosinophils (%) (Auto) 1.0 % (0.0-8.0) Basophils (%) (Auto) 0.2 % (0.0-5.0) Neutrophils # (Auto) 7.0 K/uL (1.8-7.7) Lymphocytes # (Auto) 2.3 K/uL (1.0-4.8) Monocytes # (Auto) 1.0 K/uL (0.1-1.0) Eosinophils # (Auto) 0.11 K/uL (0.00-0.70) Basophils # (Auto) 0.02 K/uL (0.00-0.20) Absolute Immature Granulocyte (auto 0.10 K/uL (0-1) Nucleated Red Blood Cells 0.0 % (0.0-0.19) Sodium Level 138 mmol/L (136-145) Potassium Level 4.2 mmol/L (3.5-5.1) Chloride Level 102 mmol/L (101-111) Carbon Dioxide Level 26 mmol/L (21-32) Blood Urea Nitrogen 30 mg/dL (7-18) H Creatinine 1.6 mg/dL (0.5-1.3) H Glomerular Filtration Rate Calc 45 mL/min (>90) Random Glucose 102 mg/dL (70-105) Total Calcium 8.8 mg/dL (8.5-10.1) Total Creatine Kinase 110 U/L (21-232) # Troponin I High Sensitivity 10 ng/L (4-75) EKG/XRAY/US/CT/MRI EKG Comment Date: 02/12/2025 Time 10:21 am Rate 86 Rhythm normal sinus VT [address] elevation or depression. MDM MDM: Differential diagnosis: Fall, aspiration pneumonia and other Rationale: Tests considered and ordered secondary to shared decision making include: Previous outside records reviewed: Old ER visits. Risk of complication and/or morbidity or mortality of patient management: None Medications-Per medication reconciliation Need for hospitalization: Patient does not meet criteria for hospitalization. Need for emergency major/minor surgery: No There are no social concerns with this patient. Prescription drug management Prescriptions will include symptomatic care Patient's prior external medical records from other ER visits were reviewed by me as indicated. Prior testing and results from previous visits were reviewed. Prior tests were taken into account with medical decision making and resource utilization, independent historian/historians were used to obtain complete medical history. ED course: Patient presented with right lateral chest wall pain secondary to fall. Vitals: BP 186/86, temperature 98.2, pulse rate 95, respiratory rate 18, SpO2 97% in room air. Remarkable labs for WBC 10.6, hemoglobin 11.3, creatinine 1.6. X-ray chest and ribs revealed: UA ED Course Orders Procedure Category Date Status Time Cbc With Differential LAB 02/12/25 Complete 09:34 12 Lead Ekg Tracing- EKG 02/12/25 Resulted Technical 09:34 Creatine Kinase, Total LAB 02/12/25 Complete 09:34 Troponin I High LAB 02/12/25 Complete Sensitivity 09:34 Urinalysis Profile LAB 02/12/25 Logged 09:34 Basic Metabolic Panel LAB 02/12/25 Complete 09:34 Drug Screen Urine LAB 02/12/25 Logged 09:34 Ribs Uni Rt W Pa RAD 02/12/25 Resulted Chest 3+ Vws 10:03 Methylprednisolone PHA 02/12/25 Complete Succ 40mg (Solu-Medro 10:30 Morphine 2mg Syg PHA 02/12/25 Complete (Morphine 2mg Syg) 10:30 Ipratropium/Albuterol PHA 02/12/25 Complete Neb (Duoneb) 10:30 Morphine 2mg Syg PHA 02/12/25 Complete (Morphine 2mg Syg) 13:00 Methylprednisolone PHA 02/12/25 Complete Succ 40mg (Solu-Medro 13:00 Ct Chest W/O Contrast CT 02/12/25 Resulted 12:03 0.9% Nacl 500ml PHA 02/12/25 Complete Iv.Soln (Ns 500ml 14:00 Morphine 2mg Syg PHA 02/12/25 Complete (Morphine 2mg Syg) 16:30 Current Medications Medications (Trade) Dose Ordered Sig/Annalee Route PRN Reason Start Time Stop Time Status Last Admin Dose Admin Albuterol (DUOneb) 1 udvial ONCE ONCE IH 02/12/25 10:30 02/12/25 10:31 DC 02/12/25 10:42 Methylprednisolone Sodium Succinate (Solu-medROL 40MG) 40 mg ONCE ONCE IM 02/12/25 13:00 02/12/25 13:01 DC 02/12/25 13:10 Methylprednisolone Sodium Succinate (Solu-medROL 40MG) 60 mg ONCE ONCE IVP 02/12/25 10:30 02/12/25 12:49 DC Morphine Sulfate (morPHINE 2MG SYG) 2 mg ONCE ONCE IM 02/12/25 13:00 02/12/25 13:01 DC 02/12/25 13:10 Morphine Sulfate (morPHINE 2MG SYG) 2 mg ONCE ONCE IVP 02/12/25 10:30 02/12/25 12:49 DC Morphine Sulfate (morPHINE 2MG SYG) 2 mg ONCE ONCE IVP 02/12/25 16:30 02/12/25 16:31 DC 02/12/25 16:27 Sodium Chloride 500 ml @ 0 mls/hr ONCE ONCE IV 02/12/25 14:00 02/12/25 14:01 DC 02/12/25 13:56 Vital Signs Date Time Temp Pulse Resp B/P (MAP) Pulse Ox O2 Delivery O2 Flow Rate FiO2 02/12/25 15:39 98.2 82 18 147/ 97 Room Air* 0 21 02/12/25 11:28 98.2 88 18 168/74 97 Room Air* 0 21 02/12/25 11:03 90 16 02/12/25 09:45 98.2 95 18 186/86 97 Room Air 0 DX & DISP Departure Condition: Stable Referrals: MELONY NICHOLS MD (PCP) CHACE ROA MD Feb 12, 2025 10:43 MACKENZIE KANG MD Feb 12, 2025 12:12
--- NOTE | 2025-02-12 10:46 | EKG ---
[facility] Test Date: 2025-02-12 Test Time: 10:21:38 Pat Name: PADMA BALDERRAMA Department: ED Room: Gender: M Manager Printing: [facility] : 1950 Requested By: MACKENZIE KANG Order Number: [id number] Reading MD: Mela Jett Measurements Intervals [place] Rate: 86 P: 45 [place]: 154 QRS: -1 QRSD: 86 T: 62 QT: 387 QTc: 463 Interpretive Statements Sinus rhythm Compared to ECG 02/10/2025 11:54:30 No significant changes Electronically Signed On 02-12-2025 12:10:51 CDT by Mela Jett Please click the below link to view image of tracing.
[2025-02-12 11:03] VITALS: PULSE 90; RESP 16
--- NOTE | 2025-02-12 12:09 | HMCIMG ---
EXAM: RIGHT RIB RADIOGRAPHS WITH CHEST, FIVE VIEWS Technique: Multiple radiographic projections of the right ribs were obtained with an accompanying posteroanterior chest radiograph. Image quality is diagnostic. Clinical Information: Lateral chest pain following a fall. Findings: There is no displaced right rib fracture identified. There is no focal lytic or blastic osseous lesion identified in the ribs. There are diffuse traction bronchiectatic changes with fibrotic scarring in both lungs on the accompanying chest radiograph. There are degenerative changes of the thoracic spine. There is unfolding of the aorta with aortic arch atherosclerotic calcification. The visualized soft tissues are unremarkable. Impression: * No displaced right rib fracture identified on this rib series. * Diffuse traction bronchiectasis and fibrotic changes in both lungs, compatible with chronic small-airway and interstitial scarring. * Degenerative changes of the thoracic spine. * Unfolding of the aorta with aortic arch atherosclerotic calcification. * If there is persistent focal tenderness or high clinical suspicion for an occult or nondisplaced rib fracture, consider repeat radiographs in 7???10 days or computed tomography of the chest for greater sensitivity. For characterization of the diffuse bronchiectasis and fibrosis, consider high-resolution computed tomography of the chest and pulmonary consultation if not previously established. Correlate aortic calcification with cardiovascular risk factors and manage per guidelines. /[place]
[2025-02-12] MEDS: Solu-medROL 40MG VIAL IM ONE (13:10)
[2025-02-12] MEDS: 0.9% NACL 500ML IV.SOLN 500 ML IV ONE (13:56)
--- NOTE | 2025-02-12 16:29 | HMCIMG ---
EXAM: CT Chest Without IV Contrast CLINICAL HISTORY: Right chest wall pain post fall TECHNIQUE: Axial computed tomography images of the chest obtained without intravenous contrast. COMPARISON: Chest radiograph dated February 10, 2025. FINDINGS: LUNGS: Bilateral ground-glass opacities with interlobular septal thickening, architectural distortion, and bronchiectatic changes, more prominent in the left lung. Multifocal areas of pleural thickening and subpleural scarring are noted, consistent with post-inflammatory or fibrotic sequelae. No focal consolidation or discrete pulmonary mass. PLEURAL SPACES: No pleural effusion or pneumothorax identified. HEART: Mild cardiomegaly. Calcific atherosclerotic changes involving the aortic arch and coronary arteries (three-vessel distribution). No significant pericardial effusion. MEDIASTINUM: Distended distal thoracic oesophagus, possibly due to reflux or motility disorder. No mediastinal adenopathy. UPPER ABDOMEN: Visualized upper abdominal organs are unremarkable. BONES: No acute fracture or destructive osseous lesion. IMPRESSION: * Fibrotic interstitial lung changes with bronchiectasis, subpleural scarring, and pleural thickening???predominantly left-sided. * Mild cardiomegaly with calcific atherosclerosis of aortic arch and triple-vessel coronary involvement. * Distended distal thoracic esophagus???suggest correlation for reflux or motility disorder. * No acute intrathoracic traumatic abnormality. Overall trend: Interval progression of chronic interstitial and fibrotic changes compared to chest radiograph dated February 10, 2025. /[place]
--- NOTE | 2025-02-12 16:57 | ERN ---
General Chief Complaint: Mechanical Fall Stated Complaint: FALL Time Seen by MD: 09:32 Source: patient History of Present Illness Initial Comments Patient is a 74-year-old male coming in after he stated he was walking and did not use his walker fell forward hitting himself in the right rib area. He states that has tenderness to palpation of the right rib area. No loss of cons ciousness. Allergies: Coded Allergies: trazodone (Unverified Allergy, Mild, DIZZINESS, 07/19/20) AMS Home Meds Active Scripts Ondansetron (Ondansetron Odt) 4 Mg Tab.rapdis, 4 MG PO Q6HPRN PRN for nausea, # 16 TAB 0 Refills Prov:CLAUDE KRISHNAN [employer] 02/10/25 Reported Medications Omeprazole (Omeprazole) 20 Mg Tablet.dr, 20 MG PO BID, TAB 02/01/25 Ferrous Sulfate (Iron) 325 Mg (65 Mg Iron) Tablet, 325 MG PO DAILY, TAB 11/03/24 Fluticasone/Umeclidin/Vilanter (Trelegy Ellipta 100-62.5-25) 100-62.5 Blst.w.dev, 1 PUFF PO DAILY 10/06/24 Clonidine (Clonidine) 0.3 Mg/24 Hour Patch.tdwk, 1 EACH TD Q5D 10/04/24 Hydrocodone/Acetaminophen (Hydrocodon-Acetaminophn 10-325) 10 Mg-325 Mg Tablet, 1 TAB PO QIDP PRN for pain for 30 Days, #120 TAB 0 Refills 10/04/24 Lorazepam (Ativan) 2 Mg Tablet, 2 MG PO Q8HRS, TAB 05/11/24 Lisinopril (Lisinopril) 20 Mg Tablet, 1 TAB PO BID for 30 Days, #30 TAB 0 Refills 05/11/24 Sodium Bicarbonate (Sodium Bicarbonate) 650 Mg Tablet, 1 TAB PO DAILY for indigestion for 30 Days, #60 TAB 0 Refills 05/01/24 Sucralfate (Sucralfate) 1 Gram Tablet, 1 TAB PO QID for 30 Days, #120 TAB 0 Refills 05/01/24 Amlodipine Besylate (Amlodipine Besylate) 10 Mg Tablet, 1 TAB PO DAILY for 30 Days, #30 TAB 0 Refills 05/01/24 Pantoprazole Sodium (Pantoprazole Sodium) 40 Mg Tablet.dr, 1 TAB PO BID for 30 Days, #30 TAB 0 Refills 05/01/24 Zolpidem Tartrate (Ambien) 10 Mg Tablet, 1 TAB PO HS PRN for sleep for 30 Days, #30 TAB 0 Refills 05/01/24 Past Medical History Past Medical History: COPD, Hypertension, Renal Disese, Seizure Medical History Other: PULMONARY EDEMA Past Surgical History: Other Surgical History Other: elbow surgery Family History Family History: HTN Social History Social History: Smokers, Negative, Lives alone ROS Dictation CONSTITUTIONAL: No chills, no fever, no weakness, no diaphoresis, no malaise. HEAD/FACE: No signs of trauma. EENT: No eye pain, no blurred vision, no tearing, no double vision, no ear pain, no ear discharge, no nose pain, no nasal congestion, no throat pain, no throat swelling, no mouth pain. RESPIRATORY: No cough, no orthopnea, no SOB, no stridor, no wheezing. CARDIOVASCULAR: chest pain, no edema, no palpitations, no syncope. GASTROINTESTINAL/ABDOMINAL: No abdominal pain, no constipation, no diarrhea, no nausea, no vomiting. GENITOURINARY: No abnormal discharge, no dysuria, no frequent urination, no hematuria. No complaints of pain in the genitals. MUSCULOSKELETAL: No back pain, no gout, no joint pain, no joint swelling, no muscle pain, no muscle stiffness, no neck pain. INTEGUMENTARY: No change in color, no change in hair/nails, no dryness, no lesion, no lumps, no rash. NEUROLOGICAL/PSYCH: No anxiety, not depressed, no emotional problem, no headache, no numbness, no pre-existing deficit, no history of seizures, no tremors, no weakness. HEMATOLOGIC/LYMPHATIC: Not anemic, no history of blood clots, no apparent bleeding, no bruising, glands not swollen. All Systems Negative, Except as Noted. Physical Exam Physical Exam Dictation VITAL SIGNS: Reviewed. GENERAL APPEARANCE: Alert, oriented x3, no acute distress, obese. HEAD AND FACE: Non-traumatic. EYES: PERRL, pink conjunctivas, eyelid no trauma, anterior chamber clear. EARS: Pinnas intact and no signs of trauma or erythema. Ear canals clear and no discharge. TMs no erythema. NOSE: No discharge, no bleeding. OROPHARYNX: Mouth normal, teeth no caries, tongue pink. Pharynx clear, no erythema. Tonsils no exudates, no abscesses noted. Mucous membrane moist. NECK: Supple, non-tender, no thyromegaly, no masses, no JVD, no bruits. BREAST: Deferred. CHEST: tenderness, no crepitus, no paradoxical movement, no retractions. LUNGS: Clear, well-ventilated, symmetric, no rales, no wheezing, no rhonchi, no stridor, good breath sounds bilaterally. HEART: Regular rate, regular rhythm, no murmur, no gallops. VASCULAR: No peripheral edema. ABDOMEN: Soft, positive bowel sounds, nondistended, no guarding, nontender, no rebound, no masses no hepatomegaly, no splenomegaly, no Adrian's sign, no hernias. RECTAL: Deferred. GENITAL: Deferred. NEUROLOGICAL: Normal speech, gross motor function intact, gross sensory function intact. MUSCULOSKELETAL: Neck nontender, full range of motion, back nontender, full range of motion. EXTREMITIES: Nontender, full range of motion. SKIN: Color pink, dry, no turgor, no rash, no lacerations, no abrasions, no contusions. LYMPHATICS: Deferred. Results Laboratory and Microbiology Lab and Micro Result Laboratory Tests Test 02/12/25 09:46 White Blood Count 10.6 K/uL (4.8-10.8) Red Blood Count 3.68 MIL/uL (4.50-6.20) L Hemoglobin 11.3 g/dL (14.0-18.0) L Hematocrit 34.5 % (42-54) L Mean Corpuscular Volume 93.8 fL (79-99) Mean Corpuscular Hemoglobin 30.7 pg (27.0-33.0) Mean Corpuscular Hemoglobin Concent 32.8 g/dL (32.0-36.0) Red Cell Distribution Width 13.1 % (11.0-15.5) Platelet Count 417 K/uL (130-400) H Mean Platelet Volume 8.9 fL (7.5-10.5) Immature Granulocyte % (Auto) 0.9 % (0-1) Neutrophils (%) (Auto) 66.7 % (40.0-77.0) Lymphocytes (%) (Auto) 21.4 % (21.0-51.0) Monocytes (%) (Auto) 9.8 % (3.0-13.0) Eosinophils (%) (Auto) 1.0 % (0.0-8.0) Basophils (%) (Auto) 0.2 % (0.0-5.0) Neutrophils # (Auto) 7.0 K/uL (1.8-7.7) Lymphocytes # (Auto) 2.3 K/uL (1.0-4.8) Monocytes # (Auto) 1.0 K/uL (0.1-1.0) Eosinophils # (Auto) 0.11 K/uL (0.00-0.70) Basophils # (Auto) 0.02 K/uL (0.00-0.20) Absolute Immature Granulocyte (auto 0.10 K/uL (0-1) Nucleated Red Blood Cells 0.0 % (0.0-0.19) Sodium Level 138 mmol/L (136-145) Potassium Level 4.2 mmol/L (3.5-5.1) Chloride Level 102 mmol/L (101-111) Carbon Dioxide Level 26 mmol/L (21-32) Blood Urea Nitrogen 30 mg/dL (7-18) H Creatinine 1.6 mg/dL (0.5-1.3) H Glomerular Filtration Rate Calc 45 mL/min (>90) Random Glucose 102 mg/dL (70-105) Total Calcium 8.8 mg/dL (8.5-10.1) Total Creatine Kinase 110 U/L (21-232) # Troponin I High Sensitivity 10 ng/L (4-75) Labs Reviewed?: Yes EKG/XRAY/US/CT/MRI EKG Comment 02/12/2025 time 10:21 a.m. Ventricular rate 86 Sinus rhythm ID [address] wave elevation or depression X-RAY Comment IMAGING REPORT Signed PATIENT: PADMA BALDERRAMA V MR#: [id number] : 1950 SEX: M AGE: 74 LOCATION: [facility] ORDER [id number] STATUS: REG ER REPORT#: [id number] SERVICE 1003 REASON: lateral chest pain post fall ORDERING PHYSICIAN: CHACE ROA MD PROCEDURE: RIB RT W C - RIBS UNI RT W PA CHEST 3+ VWS EXAM: RIGHT RIB RADIOGRAPHS WITH CHEST, FIVE VIEWS Technique: Multiple radiographic projections of the right ribs were obtained with an accompanying posteroanterior chest radiograph. Image quality is diagnostic. Clinical Information: Lateral chest pain following a fall. Findings: There is no displaced right rib fracture identified. There is no focal lytic or blastic osseous lesion identified in the ribs. There are diffuse traction bronchiectatic changes with fibrotic scarring in both lungs on the accompanying chest radiograph. There are degenerative changes of the thoracic spine. There is unfolding of the aorta with aortic arch atherosclerotic calcification. The visualized soft tissues are unremarkable. Impression: * No displaced right rib fracture identified on this rib series. * Diffuse traction bronchiectasis and fibrotic changes in both lungs, compatible with chronic small-airway and interstitial scarring. * Degenerative changes of the thoracic spine. * Unfolding of the aorta with aortic arch atherosclerotic calcification. * If there is persistent focal tenderness or high clinical suspicion for an occult or nondisplaced rib fracture, consider repeat radiographs in 7???10 days or computed tomography of the chest for greater sensitivity. For characterization of the diffuse bronchiectasis and fibrosis, consider high-resolution computed tomography of the chest and pulmonary consultation if not previously established. Correlate aortic calcification with cardiovascular risk factors and manage per guidelines. /[place] DICTATED BY: DURGA LOWE MD DATE: 02/12/251307 ELECTRONICALLY SIGNED BY: DURGA LOWE MD DATE: 02/12/[address] [place] [address] IMAGING REPORT Signed PATIENT: PADMA BALDERRAMA V MR#: [id number] : 1950 SEX: M AGE: 74 LOCATION: [facility] ORDER [id number] STATUS: REG ER REPORT#: [id number] SERVICE 1203 REASON: right chest wall pain post fall ORDERING PHYSICIAN: CHACE ROA MD PROCEDURE: CHEST WO - CT CHEST W/O CONTRAST EXAM: CT Chest Without IV Contrast CLINICAL HISTORY: Right chest wall pain post fall TECHNIQUE: Axial computed tomography images of the chest obtained without intravenous contrast. COMPARISON: Chest radiograph dated February 10, 2025. FINDINGS: LUNGS: Bilateral ground-glass opacities with interlobular septal thickening, architectural distortion, and bronchiectatic changes, more prominent in the left lung. Multifocal areas of pleural thickening and subpleural scarring are noted, consistent with post-inflammatory or fibrotic sequelae. No focal consolidation or discrete pulmonary mass. PLEURAL SPACES: No pleural effusion or pneumothorax identified. HEART: Mild cardiomegaly. Calcific atherosclerotic changes involving the aortic arch and coronary arteries (three-vessel distribution). No significant pericardial effusion. MEDIASTINUM: Distended distal thoracic oesophagus, possibly due to reflux or motility disorder. No mediastinal adenopathy. UPPER ABDOMEN: Visualized upper abdominal organs are unremarkable. BONES: No acute fracture or destructive osseous lesion. IMPRESSION: * Fibrotic interstitial lung changes with bronchiectasis, subpleural scarring, and pleural thickening???predominantly left-sided. * Mild cardiomegaly with calcific atherosclerosis of aortic arch and triple-vessel coronary involvement. * Distended distal thoracic esophagus???suggest correlation for reflux or motility disorder. * No acute intrathoracic traumatic abnormality. Overall trend: Interval progression of chronic interstitial and fibrotic changes compared to chest radiograph dated February 10, 2025. /[place] DICTATED BY: DURGA LOWE MD DATE: 02/12/251727 ELECTRONICALLY SIGNED BY: DURGA LOWE MD DATE: 02/12/251727 [facility] MDM: Differential diagnosis: Fall, chest wall pain, Rationale: Tests considered and ordered secondary to shared decision making include: Previous outside records reviewed: Old ER visits. Risk of complication and/or morbidity or mortality of patient management: None Medications-Per medication reconciliation Need for hospitalization: Patient does not meet criteria for hospitalization. Need for emergency major/minor surgery: No There are no social concerns with this patient. Patient is a 74-year-old gentleman coming in after he had a slip and fall. He was complaining of right-sided chest pain x-ray was performed a possibility of rib fracture was found. Due to the inconclusive findings a CT head to be performed. No acute findings were present. Patient will be discharged in stable condition with a diagnosis of pulmonary fibrosis and chest wall pain. ED Course Orders Procedure Category Date Status Time Cbc With Differential LAB 02/12/25 Complete 09:34 12 Lead Ekg Tracing- EKG 02/12/25 Resulted Technical 09:34 Creatine Kinase, Total LAB 02/12/25 Complete 09:34 Troponin I High LAB 02/12/25 Complete Sensitivity 09:34 Urinalysis Profile LAB 02/12/25 Logged 09:34 Basic Metabolic Panel LAB 02/12/25 Complete 09:34 Drug Screen Urine LAB 02/12/25 Logged 09:34 Ribs Uni Rt W Pa RAD 02/12/25 Resulted Chest 3+ Vws 10:03 Methylprednisolone PHA 02/12/25 Complete Succ 40mg (Solu-Medro 10:30 Morphine 2mg Syg PHA 02/12/25 Complete (Morphine 2mg Syg) 10:30 Ipratropium/Albuterol PHA 02/12/25 Complete Neb (Duoneb) 10:30 Morphine 2mg Syg PHA 02/12/25 Complete (Morphine 2mg Syg) 13:00 Methylprednisolone PHA 02/12/25 Complete Succ 40mg (Solu-Medro 13:00 Ct Chest W/O Contrast CT 02/12/25 Resulted 12:03 0.9% Nacl 500ml PHA 02/12/25 Complete Iv.Soln (Ns 500ml 14:00 Morphine 2mg Syg PHA 02/12/25 Complete (Morphine 2mg Syg) 16:30 Current Medications Medications (Trade) Dose Ordered Sig/Annalee Route PRN Reason Start Time Stop Time Status Last Admin Dose Admin Albuterol (DUOneb) 1 udvial ONCE ONCE IH 02/12/25 10:30 02/12/25 10:31 DC 02/12/25 10:42 Methylprednisolone Sodium Succinate (Solu-medROL 40MG) 40 mg ONCE ONCE IM 02/12/25 13:00 02/12/25 13:01 DC 02/12/25 13:10 Methylprednisolone Sodium Succinate (Solu-medROL 40MG) 60 mg ONCE ONCE IVP 02/12/25 10:30 02/12/25 12:49 DC Morphine Sulfate (morPHINE 2MG SYG) 2 mg ONCE ONCE IM 02/12/25 13:00 02/12/25 13:01 DC 02/12/25 13:10 Morphine Sulfate (morPHINE 2MG SYG) 2 mg ONCE ONCE IVP 02/12/25 10:30 02/12/25 12:49 DC Morphine Sulfate (morPHINE 2MG SYG) 2 mg ONCE ONCE IVP 02/12/25 16:30 02/12/25 16:31 DC 02/12/25 16:27 Sodium Chloride 500 ml @ 0 mls/hr ONCE ONCE IV 02/12/25 14:00 02/12/25 14:01 DC 02/12/25 13:56 Vital Signs Date Time Temp Pulse Resp B/P (MAP) Pulse Ox O2 Delivery O2 Flow Rate FiO2 02/12/25 15:39 98.2 82 18 147/ 97 Room Air* 0 21 02/12/25 11:28 98.2 88 18 168/74 97 Room Air* 0 21 02/12/25 11:03 90 16 02/12/25 09:45 98.2 95 18 186/86 97 Room Air 0 DX & DISP Disposition: Discharge Departure Impression: Primary Impression: Chest wall pain Additional Impressions: History of pulmonary fibrosis, Fall Condition: Stable Additional Instructions: FOLLOW-UP WITH PRIMARY CARE PROVIDER IN 1 TO 2 DAYS. TAKE MEDICATIONS DIRECTED HERE IN THE EMERGENCY ROOM. OKAY TO CONTINUE HOME MEDICATIONS UNLESS OTHERWISE DISCUSSED DURING YOUR VISIT IN THE EMERGENCY ROOM TODAY. RETURN TO YOUR NEAREST EMERGENCY ROOM IF SYMPTOMS WORSEN OR IF THERE IS NO IMPROVEMENT. CALL 911 IF YOU NEED IMMEDIATE ASSISTANCE. TAKE TYLENOL [id number] NEEDED AND IF NO CONTRAINDICATIONS ARE PRESENT. INCREASE ORAL HYDRATION. A WOUND CULTURE OR URINE CULTURE WAS ORDERED HERE IN THE EMERGENCY ROOM DEPARTMENT PLEASE FOLLOW-UP WITH PRIMARY CARE PROVIDER AND ADVISE THEM TO GET REPORTS FROM OUR FACILITY. IF YOU HAD ANY EDUARD WRAP/SPLINTS THAT WERE APPLIED HERE, PLEASE DO NOT REMOVE THEM UNTIL YOU SEE YOUR PRIMARY CARE OR SPECIALTY. Referrals: Referrals: MELONY NICHOLS MD (PCP) Time of Disposition: 17:11 MACKENZIE KANG MD Feb 12, 2025 16:57
--- NOTE | 2025-02-12 17:41 | NUR ---
HOUSE SUP AWARE OF [facility] NEEDED FOR PT, STATED ER NEEDS TO HANDLE [facility], CHARGE NURSE
[2025-02-12 18:06] VITALS: BP 138/76; PULSE 78; RESP 18; TEMP 98.2; O2SAT 97
== END 2025-02-12 18:07 | disposition home or self-care (01) ==
LOC: EDH 09:31
DX: R07.89 Other chest pain (principal); J84.10 Pulmonary fibrosis, unspecified; I10 Essential (primary) hypertension; J44.9 Chronic obstructive pulmonary disease, unspecified; F17.200 Nicotine dependence, unspecified, uncomplicated; Z79.899 Other long term (current) drug therapy; Z98.890 Other specified postprocedural states; W18.39XA Other fall on same level, initial encounter; Y93.89 Activity, other specified; Y92.89 Other specified places as the place of occurrence of the external cause; Y99.8 Other external cause status
CPT/HCPCS: 99285; 96374; 71250; 82550; 84484; 80048; 85025; 36415; 71101; 96372 ×2; 93005; 94640; J2919; J7040; J2270 ×2